=== PATIENT | male | born 1975 | race Caucasian/White ===

== ENCOUNTER 2019-11-11 08:03 | Inpatient (IN) ==
[2019-11-11] MEDS ORDERED: ONDANSETRON INJ 2 MG/ML 2 ML VIAL IV STA ×2 (08:30→10:31)
[2019-11-11] MEDS ORDERED: MoRPHine SULFATE 4 MG/ML 1 ML CARP\\VIAL IV STA ×2 (08:30→10:11)
[2019-11-11] MEDS ORDERED: SODIUM CHLORIDE 0.9% 1000ML 1,000 ML IV SCH (08:32)
--- NOTE | 2019-11-11 08:36 | Emergency Department Note ---
History of Present Illness General Chief complaint: Vomiting Stated complaint: PAIN IN LEFT SIDE UNDER RIB [id number] Time Seen by Provider: 11/11/19 08:17 History of Present Illness Maximum Pain Intensity: 7 Patient is a generally healthy 43-year-old male who presents the emergency department for evaluation of left flank pain with associated nausea, vomiting and diarrhea. His symptoms started about 10 hours ago when he noticed pain in his left flank. He tried taking ibuprofen and applying heat to the area thinking that the pain was musculoskeletal in nature. Pain is been constant in nature, and kept him from sleeping. It is located in the left flank/lateral abdomen, but does not radiate. It is worse with palpation and movement. He woke up around 7:00 this morning and as he was getting ready, he had 3 loose watery bowel movements and vomited twice. No hematochezia, hematemesis or melena. No change in his pain with the vomiting or the diarrhea. He has been urinating without difficulty, no hematuria, dysuria or hesitancy. He denies any sick contacts at home or work, no recent antibiotic use, foreign travel or unusual food or water consumption. He has eaten the same foods as family members and they are not ill. He has city water as a source at home. He had a colonoscopy in the past which was clear. He is status post appendectomy. There is no anterior chest pain or shortness of breath. No palpitations. No cough or hemoptysis. 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 Beliefs That Will Affect Care: None Current Living Situation: Alone Other Information That Helps Us Care for You: No Feels Safe at Home: Yes Safety Concerns: Feels Safe At This Time Smoking Status: Never smoker Do You Dip or Chew Tobacco: No (in the past) ; Second Hand Exposure: No ; Tobacco Cessation Education Requested by Patient: No Hx Alcohol Use: Yes Hx Substance Use: No Review of Systems A total of 10 systems reviewed and were otherwise negative Physical Exam Vital Signs Vital Signs - 24 hr 11/11/19 08:05 11/11/19 10:23 11/11/19 11:44 Temperature 36.7 C Temperature Source Oral Pulse Rate 86 Pulse Rate [Finger] 78 60 Respiratory Rate 18 16 16 Respiratory Effort / Characteristics Non-Labored Spontaneous Respiratory Depth Normal Blood Pressure 125/81 Blood Pressure [Right Arm] 123/82 118/84 Blood Pressure Mean 95 Blood Pressure Mean [Right Arm] 95 95 Pulse Oximetry 98 98 97 Oxygen Delivery Method Room Air Room Air Sepsis Recent Fever Within 48 Hours No Sepsis New/Unexplained Change in Mental Status No Sepsis Action Taken by Nursing No Action Required CONSTITUTIONAL: The patient is a well-appearing 43-year-old male who is awake and alert and in mild distress due to his stated complaint. EYES: Pupils equal, round, reactive to light and accommodation. EOMs intact without nystagmus. Sclera are anicteric. ENT: Tympanic membranes intact, with normal landmarks. External canals are clear. Oral and nasopharynx are clear. Mucous membranes are moist, no lesions, tongue and gums appear normal. NECK: Supple without lymphadenopathy. No thyromegaly. No meningeal signs. Full active range of motion without discomfort. CARDIOVASCULAR: Regular rate and rhythm, with normal S1 and S2, no murmur or gallop or rub is heard. No carotid bruits auscultated. No JVD. Peripheral pulses easily palpable. RESPIRATORY: Breath sounds equal and clear to auscultation without wheezes, rales, or rhonchi heard. Full and equal chest expansion without accessory muscle use or retractions. ABDOMEN: Bowel sounds are present. Abdomen is soft, nondistended, nontender to percussion throughout. He is tender to palpation in the left mid abdomen, left upper quadrant. No guarding or rebound. Well-healed surgical scars are noted. INTEGUMENTARY: Vitiligo noted. No acute lesions or rash, normal skin turgor. LYMPH: No lymphadenopathy. Course Course The patient was seen and assessed as above. Old records were reviewed. He presents to the emergency department for evaluation of 12 hours of left-sided abdominal pain with associated nausea, vomiting and diarrhea. He is markedly tender in the left mid abdomen. No signs of peritonitis. IV lock was initiated. Laboratory studies were collected. He was hydrated with normal saline solution. CBC with differential, CMP, urine dip and stool studies were ordered. He was medicated with morphine 4 mg IV and Zofran 4 mg IV for pain and nausea. CT scan of the abdomen pelvis with IV contrast was ordered. Laboratory studies were unremarkable. White count is normal at 8000, no left shift or bandemia. H&H is 13.7 and 40.0. Electrolytes are within normal limits. Transaminases are not elevated. Lipase is normal. Urine dip was clean without signs of infection or hematuria. Patient was reassessed when he returned from CT. He was complaining of increased pain and was ordered an additional morphine 4 mg IV. After the patient was given the IV morphine, he was complaining of nausea and was given an additional Zofran [address] scan findings are consistent with an acute diverticulitis of the mid descending colon. No evidence for abscess or perforation. No other acute in tra-abdominal pathology noted. IV Zosyn was ordered. All laboratory and diagnostic imaging studies were reviewed with the patient and his female friend. Supportive care measures were discussed with the patient. Patient was receiving IV antibiotics. Nursing staff contacted me again with the patient was complaining of a return of his pain, and had vomited. He was ordered Dilaudid 0.5 mg IV and Phenergan 25 mg IV. The patient was reassessed after the Dilaudid and Phenergan, and reported little improvement of his pain, and was still nauseous and vomiting. Given this, admission/observation was discussed with him due to his intractable pain and vomiting. He was agreeable. Consultation was placed with the [facility] for further care and management as an inpatient. Administered Medications Ioversol (Optiray 320 100ml) 94 ml IV ONCE PRN PRN Reason: Interaction Checking Stop: 11/15/19 09:29 Last Admin: 11/11/19 09:31 Dose: 94 ml Documented by: [id number] Discontinued Medications Hydromorphone HCl (Dilaudid) 0.5 mg IV NOW STA Stop: 11/11/19 11:29 Last Admin: 11/11/19 11:46 Dose: 0.5 mg Documented by: [id number] Sodium Chloride (Nss 1000ml) 1,000 mls @ 999 mls/hr IV .Q1H1M THALIA Stop: 11/11/19 09:32 Last Infusion: 11/11/19 10:23 Dose: 0 mls/hr Documented by: [id number] Admin: 11/11/19 09:02 Dose: 999 mls/hr Documented by: [id number] Piperacillin Sod/Tazobactam Sod (Zosyn) 4.5 gm in 120 mls @ 240 mls/hr IV NOW ONE Stop: 11/11/19 10:40 Last Infusion: 11/11/19 11:09 Dose: 0 mls/hr Documented by: [id number] Admin: 11/11/19 10:29 Dose: 240 mls/hr Documented by: [id number] Promethazine HCl (Phenergan) 25 mg in 51 mls @ 204 mls/hr IV NOW STA Stop: 11/11/19 11:42 Last Infusion: 11/11/19 12:05 Dose: 0 mls/hr Documented by: [id number] Admin: 11/11/19 11:46 Dose: 204 mls/hr Documented by: [id number] Morphine Sulfate (Morphine Sulfate) 4 mg IV NOW STA Stop: 11/11/19 08:31 Last Admin: 11/11/19 09:03 Dose: 4 mg Documented by: [id number] Morphine Sulfate (Morphine Sulfate) 4 mg IV NOW STA Stop: 11/11/19 10:12 Last Admin: 11/11/19 10:22 Dose: 4 mg Documented by: [id number] Ondansetron HCl (Zofran) 4 mg IV NOW STA Stop: 11/11/19 08:31 Last Admin: 11/11/19 09:03 Dose: 4 mg Documented by: [id number] Ondansetron HCl (Zofran) 4 mg IV NOW STA Stop: 11/11/19 10:32 Last Admin: 11/11/19 10:47 Dose: 4 mg Documented by: [id number] Medical Decision Making Differential Diagnosis Differential diagnoses entertained included UTI, pyelonephritis, renal colic, hernia, shingles, musculoskeletal injury, diverticulitis, bowel obstruction perforation among others. Medical Records Attestation: I reviewed the patient's medical records. Home Medications Current Medication List: was personally reviewed by me Laboratory Data Attestation: I reviewed the patient's lab results. Result diagrams: 11/11/19 08:41 11/11/19 08:41 Lab Results 11/11/19 11/11/19 11/11/19 Range/Units 08:41 08:41 10:00 WBC 8.09 (4.8-10.8) K/uL RBC 4.76 (4.7-6.1) M/uL Hgb 13.7 L (14.0-18.0) g/dL Hct 40.4 L (42-52) % MCV 84.9 (80-100) fL MCH 28.8 (25-34) pg MCHC 33.9 (32-36) g/dL RDW Std Deviation 38.1 (36.4-46.3) fL RDW Coeff of Kym 12.5 (11.5-14.5) % Plt Count 184 (130-400) K/uL MPV 10.2 (7.4-10.4) fL Immature Gran % (Auto) 0.2 % Neut % (Auto) 69.2 % Lymph % (Auto) 16.1 % [place] % (Auto) 12.1 % Eos % (Auto) 2.2 % Baso % (Auto) 0.2 % Immature Gran # (Auto) 0.02 (0.00-0.02) K/uL Neut # (Auto) 5.59 (1.4-6.5) K/uL Lymph # (Auto) 1.30 (1.2-3.4) K/uL [place] # (Auto) 0.98 H (0.11-0.59) K/uL Eos # (Auto) 0.18 (0-0.5) K/uL Baso # (Auto) 0.02 (0-0.2) K/uL Sodium 140 (136-145) mmol/L Potassium 3.9 (3.5-5.1) mmol/L Chloride 107 (98-107) mmol/L Carbon Dioxide 29 (21-32) mmol/L Anion Gap 4.0 (3-11) BUN 12 (7-18) mg/dl Creatinine 1.12 (0.6-1.4) mg/dl Est Cr Clr Drug Dosing 82.3 ml/min Est GFR ( Amer) 92.7 Est GFR (Non-Af Amer) 80.0 BUN/Creatinine Ratio 11.1 (10-20) Glucose 104 H (70-99) mg/dl Calcium 8.8 (8.5-10.1) mg/dl Total Bilirubin 0.8 (0.2-1) mg/dl AST 8 L (15-37) U/L ALT 22 (12-78) U/L Alkaline Phosphatase 55 (45-117) U/L Total Protein 7.2 (6.4-8.2) gm/dl Albumin 3.7 (3.4-5.0) gm/dl Globulin 3.5 (2.5-4.0) gm/dl Albumin/Globulin Ratio 1.1 (0.9-2) Lipase 94 (73-393) U/L POC Urine pH 5 (4.5-7.5) POC Urine Protein Trace H (Negative) POC Ur Glucose (UA) Normal (Normal) POC Urine Ketones Negative (Negative) POC Urine Blood Negative (Negative) POC Urine Nitrite Negative (Negative) POC Urine Bilirubin Negative (Negative) POC Urine Urobilinogen Normal (Normal) POC U Leukocyte Esteras Negative (Negative) Imaging Data Attestation: I personally reviewed and interpreted this imaging study as follows: Radiologist's Impression: CT OF THE ABDOMEN AND PELVIS WITH CONTRAST CLINICAL HISTORY: Left flank pain. COMPARISON STUDY: None. TECHNIQUE: Following IV administration of 94 mL of Optiray-320, axial images of the abdomen and pelvis were obtained from the lung bases to the proximal femurs. Images were reviewed in the axial, sagittal, and coronal planes. IV contrast was administered without complication. Automated exposure control was utilized for the study. A dose lowering technique was utilized adhering to the principles of ALARA. CT DOSE: 381.19 mGy.cm FINDINGS: Lung bases are unremarkable. No pneumatosis, free air or portal venous gas is present. Note is made of a 1.2 cm cyst within the upper pole of the right kidney. There is no hydronephrosis. The liver, spleen, adrenal glands, left kidney and pancreas are normal. There is no evidence for a bowel obstruction. The appendix is surgically absent. There is an inflamed diverticulum of the posterior aspect of the mid descending colon. There is mild adjacent inflammation. There is no free air or abscess. No suspicious osseous lesions are noted. IMPRESSION: Mild acute diverticulitis of the mid descending colon. No free air or abscess. Mild inflammation. Blood Pressure Blood Pressure Findings: Normal blood pressure Blood Pressure Disposition: did not require urgent referral MDM Narrative See ED Course. Impression & Plan Diverticulitis Discharge Plan Visit Data Chief Complaint: Vomiting Stated Complaint: PAIN IN LEFT SIDE UNDER RIB [id number] ED Provider: Guillermo Stewart ED Midlevel Provider: Rosenda Gupta Discharge Problem: Diverticulitis Patient Disposition: Being Evaluated by Hospitalist Forms Stand Alone Forms: [facility] Pres[facility] Prescriptions: No Action ibuprofen [Advil] 200 mg Tablet 400 mg PO Q6H PRN (Reason: Fever Or Pain) RF: 0 Referrals Referrals: Bennie Bermudez MD [Primary Care Provider] -
[2019-11-11 08:57] LABS: Basophils # (auto) 0.02 K/uL (0-0.2); Basophils % (auto) 0.2 %; Eosinophils # (auto) 0.18 K/uL (0-0.5); Eosinophils % (auto) 2.2 %; Hematocrit (blood only) 40.4 % (42-52); Hemoglobin 13.7 g/dL (14.0-18.0); Immature Granulocytes # (auto) 0.02 K/uL (0.00-0.02); Immature Granulocytes % (auto) 0.2 %; Lymphocytes % (auto) 16.1 %; Mean Corpuscular Hemoglobin 28.8 pg (25-34); Mean Corpuscular Hgb Conc 33.9 g/dL (32-36); Mean Corpuscular Volume 84.9 fL (80-100); Mean Platelet Volume 10.2 fL (7.4-10.4); Monocytes # (auto) 0.98 K/uL (0.11-0.59); Monocytes % (auto) 12.1 %; Neutrophils # (auto) 5.59 K/uL (1.4-6.5); Neutrophils % (auto) 69.2 %; Platelet Count 184 K/uL (130-400); RDW Coefficient of Variation 12.5 % (11.5-14.5); RDW Standard Deviation 38.1 fL (36.4-46.3); Red Blood Count 4.76 M/uL (4.7-6.1); White Blood Count 8.09 K/uL (4.8-10.8)
[2019-11-11 09:14] LABS: Albumin Level 3.7 gm/dl (3.4-5.0); BUN Creatinine Ratio 11.1 (10-20); Calcium 8.8 mg/dl (8.5-10.1); Creatinine Clr Calc Pharmacy 82.3 ml/min; Est GFR (African American) 92.7; Potassium 3.9 mmol/L (3.5-5.1)
[2019-11-11 09:17] LABS: Albumin Globulin Ratio 1.1 (0.9-2); Bilirubin,Total 0.8 mg/dl (0.2-1); Globulin 3.5 gm/dl (2.5-4.0); Total Protein 7.2 gm/dl (6.4-8.2)
[2019-11-11] MEDS ORDERED: IOVERSOL 100ml IV PRN (09:30)
--- NOTE | 2019-11-11 09:53 | CT Scan Report ---
CT OF THE ABDOMEN AND PELVIS WITH CONTRAST CLINICAL HISTORY: Left flank pain. COMPARISON STUDY: None. TECHNIQUE: Following IV administration of 94 mL of Optiray-320, axial images of the abdomen and pelvi s were obtained from the lung bases to the proximal femurs. Images were reviewed in the axial, sagitt al, and coronal planes. IV contrast was administered without complication. Automated exposure contro l was utilized for the study. A dose lowering technique was utilized adhering to the principles of A ARMIN. CT DOSE: 381.19 mGy.cm FINDINGS: Lung bases are unremarkable. No pneumatosis, free air or portal venous gas is present. Note is made of a 1.2 cm cyst within the upper pole of the right kidney. There is no hydronephrosis. The liver, spleen, adrenal glands, left kidney and pancreas are normal. There is no evidence for a bowel obstruction. The appendix is surgically absent. There is an inflamed diverticulum of the posterior as pect of the mid descending colon. There is mild adjacent inflammation. There is no free air or absces s. No suspicious osseous lesions are noted. IMPRESSION: Mild acute diverticulitis of the mid descending colon. No free air or abscess. Mild infl ammation. Electronically signed by: Kaden Cantu M.D. 11/11/2019 9:51 AM
[2019-11-11 10:02] LABS: POC Urine Bilirubin Negative (Negative); POC Urine Blood Negative (Negative); POC Urine Glucose Normal (Normal); POC Urine Ketones Negative (Negative); POC Urine Leukocytes Negative (Negative); POC Urine Nitrite Negative (Negative); POC Urine Protein Trace (Negative); POC Urine Urobilinogen Normal (Normal); POC Urine pH 5 (4.5-7.5)
[2019-11-11] MEDS ORDERED: PIPERACILLIN/TAZOBACTAM 4.5 GM/120 ML BAG IV ONE (10:11)
[2019-11-11] MEDS ORDERED: PIPERACILL/TAZOBAC CONSULT ACTIVE PRN (10:11)
[2019-11-11] MEDS ORDERED: PROMETHAZINE 25 MG/51 ML BAG IV STA (11:28)
[2019-11-11] MEDS ORDERED: HYDROmorphone INJ 0.5 MG/0.5 ML SYR IV STA (11:28)
--- NOTE | 2019-11-11 13:35 | History & Physical Report ---
Date of Service November 11, 2019 Assessment & Plan (1) Diverticulitis: This is a 43-year-old male with no known past medical history who presents with left-sided abdominal pain starting last night at 10 PM and was found to have mild acute diverticulitis of mid descending colon. -Left flank pain, nausea, vomiting and diarrhea since late last evening -Afebrile, hemodynamically stable, no leukocytosis or electrolyte abnormalities -CT abd/pelvis with mild acute diverticulitis of the mid descending colon. No free air or abscess. Mild inflammation -Started empirically on Zosyn in the ED. Plan to continue, follow blood culture -Stool cultures, FOBT and C. difficile toxin ordered and pending -IV fluids, clear liquids as tolerated, pain control, antiemetics DVT Ppx: Early ambulation, maru hose Code status: FULL PCP: No PCP (seen occasionally at [facility], per records) Dispo: Admitted to med/surg. Plan to return home once medically stable Patient seen in collaboration with Dr. Fraser. Please see addendum. History of Present Illness Chief Complaint: Abdominal pain Primary Care Provider: Bennie Bermudez MD This is a 43-year-old male with no known past medical history who presents with left-sided abdominal pain starting last night at 10 PM. Describes pain on left flank under his ribs that is been constant and nonradiating. Associated with nausea, vomiting and diarrhea. Patient tried taking ibuprofen and applying heat to area under left ribs without relief. Denies any fever but does endorse chills. No lightheadedness, visual changes, cough, chest pain, palpitations, shortness of breath, hematemesis, dysuria, hematuria or hesitancy. No constipation. Denies any recent sick contacts or unusual foods. No history of known diverticulitis in the past. 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 Physical Exam Physical Exam: General Appearance: WD/WN, vitals as above, NAD, lying in bed, appears ill, conversing easily Head: normocephalic, atraumatic Eyes: normal inspection, PERRL, conjunctivae normal, anicteric sclerae ENT: external ear and nose normal, oropharynx normal Neck: trachea midline, no thyromegaly normal visual inspection Respiratory: normal respiratory effort, lungs clear to auscultation, no wheeze, rales, rhonchi. Normal insp/exp effort, no accessory muscle use Cardiovascular: regular rate, rhythm, no murmur, normal peripheral pulses. Vessels: no JVD or carotid bruit Chest: normal inspection of chest Abdomen/GI: normal bowel sounds, soft, TTP of left flank below lateral ribs, no guarding, no hepatosplenomegaly Extremities/Musculoskelatal: no cyanosis or clubbing, extremities motor strength 5/5 Neurologic: PERRL, EOMI, accommodation nl, no face palsy, no dysarthria, CN's II-XI intact bilaterally and moves all extremities Psychiatric: A+Ox3, euthymic affect Skin: no rashes, normal color, warm/dry Results & Data Vital Signs (Past 12 Hours) Vital Signs Temp Pulse Pulse Resp BP BP Pulse Ox 11/11/19 11:44 60 16 118/84 97 11/11/19 10:23 78 16 123/82 98 11/11/19 08:05 36.7 C 86 18 125/81 98 Laboratory Results Short CBC 11/11/19 Range/Units 08:41 WBC 8.09 (4.8-10.8) K/uL Hgb 13.7 L (14.0-18.0) g/dL Hct 40.4 L (42-52) % Plt Count 184 (130-400) K/uL BMP 11/11/19 08:41 Sodium 140 Potassium 3.9 Chloride 107 Carbon Dioxide 29 BUN 12 Creatinine 1.12 Glucose 104 H Calcium 8.8 Liver Function 11/11/19 Range/Units 08:41 Total Bilirubin 0.8 (0.2-1) mg/dl AST 8 L (15-37) U/L ALT 22 (12-78) U/L Alkaline Phosphatase 55 (45-117) U/L Albumin 3.7 (3.4-5.0) gm/dl Diagnostic Findings CT abd/pelvis: IMPRESSION: Mild acute diverticulitis of the mid descending colon. No free air or abscess. Mild inflammation. Supervising Physician Co-Signing Physician Notes I, Dr. Marco Fraser, have seen the patient with physician conservation assistant and agree with the assessment and plan as described and would like to comment that Acute diverticulitis -This is a 43 year old previously healthy male with no significant past medical history, not on medications, no allergic history, who started to have left sided abdominal to flank pain on the night of 11/10/19 with subsequent episodes of vomiting and diarrhea and found on CT scan to have mild acute diverticulitis -no kidney stones on CT abdomen imaging -patient reported chills but no documented fevers -normal white blood cell counts -Physical exam is pertinent for generalized malaise with tenderness to palpation of left sided abdomen below the left rib cage. otherwise normal exam. abdomen is soft. Lungs: clear to asucultation. Heart: regular rate and rhythm. Neurological: no focal neurological deficits. Extremities: moves all extremities, no edema -patient empirically started on IV Zosyn in the ED, while this may be somewhat stronger than needed treatment in clinical context, would continue the empiric antibiotic for now - follow culture results and stool studies and clinical course before considering antibiotic de-escalation -IV fluids and IV anti-emetics to prevent dehydration -clear liquid diet -encourage ambulation as tolerated
[2019-11-11] MEDS ORDERED: IBUPROFEN 200 MG TAB PO PRN (14:54)
[2019-11-11] MEDS ORDERED: ACETAMINOPHEN 325 MG TAB PO PRN ×2 (14:54→17:04)
[2019-11-11] MEDS ORDERED: ONDANSETRON INJ 2 MG/ML 2 ML VIAL IV PRN (14:54)
[2019-11-11] MEDS ORDERED: MoRPHine SULFATE 4 MG/ML 1 ML CARP\\VIAL IV PRN (14:54)
[2019-11-11] MEDS ORDERED: PROMETHAZINE HCL 25 MG TAB PO PRN (14:54)
[2019-11-11] MEDS: SODIUM CHLORIDE 0.9% 1000ML 1,000 ML IV SCH (15:48)
[2019-11-11] MEDS: PIPERACILLIN/TAZOBACTAM 3.375 GM in DEXTROSE 5% 100 ML IV SCH ×2 (16:06→23:40)
[2019-11-11] MEDS: KETOROLAC TROMETHAMINE 15 MG/ML VIAL IV PRN (20:26)
[2019-11-11] MEDS: HYDROmorphone INJ 0.5 MG/0.5 ML SYR IV PRN (23:41)
[2019-11-12] MEDS: SODIUM CHLORIDE 0.9% 1000ML 1,000 ML IV SCH ×2 (03:14→16:24)
[2019-11-12] MEDS: KETOROLAC TROMETHAMINE 15 MG/ML VIAL IV PRN ×3 (03:14→20:53)
[2019-11-12 05:25] LABS: Basophils # (auto) 0.02 K/uL (0-0.2); Basophils % (auto) 0.2 %; Eosinophils % (auto) 2.5 %; Hemoglobin 12.4 g/dL (14.0-18.0); Immature Granulocytes # (auto) 0.01 K/uL (0.00-0.02); Immature Granulocytes % (auto) 0.1 %; Lymphocytes # (auto) 1.69 K/uL (1.2-3.4); Lymphocytes % (auto) 20.8 %; Mean Corpuscular Hemoglobin 28.7 pg (25-34); Mean Corpuscular Hgb Conc 33.5 g/dL (32-36); Mean Corpuscular Volume 85.6 fL (80-100); Mean Platelet Volume 10.3 fL (7.4-10.4); Monocytes # (auto) 1.11 K/uL (0.11-0.59); Monocytes % (auto) 13.7 %; Neutrophils # (auto) 5.08 K/uL (1.4-6.5); Neutrophils % (auto) 62.7 %; Platelet Count 172 K/uL (130-400); RDW Coefficient of Variation 12.6 % (11.5-14.5); RDW Standard Deviation 39.4 fL (36.4-46.3); Red Blood Count 4.32 M/uL (4.7-6.1); White Blood Count 8.11 K/uL (4.8-10.8)
[2019-11-12 05:49] LABS: BUN Creatinine Ratio 7.4 (10-20); Calcium 7.7 mg/dl (8.5-10.1); Creatinine Clr Calc Pharmacy 73.1 ml/min; Est GFR (African American) 80.4; Est GFR (Non-African American) 69.4; Potassium 3.5 mmol/L (3.5-5.1)
[2019-11-12] MEDS ORDERED: CALCIUM GLUCONATE 10% 1,000 MG in SODIUM CHLORIDE 0.9% 50 ML IV STA (07:28)
[2019-11-12] MEDS ORDERED: POTASSIUM CHLORIDE 20 MEQ TABCR PO STA (07:28)
[2019-11-12] MEDS ORDERED: POLYETHYLENE (MIRALAX) 17 GM PACK PO PRN (08:03)
--- NOTE | 2019-11-12 08:03 | Hospitalist Progress Note ---
Date of Service November 12, 2019 Assessment & Plan (1) Diverticulitis: This is a 43-year-old male with no known past medical history who presents with left-sided abdominal pain starting last night at 10 PM and was found to have mild acute diverticulitis of mid descending colon. Acute diverticulitis -This is a 43 year old previously healthy male with no significant past medical history, not on medications, no allergic history, who started to have left sided abdominal to flank pain on the night of 11/10/19 with subsequent episodes of vomiting and diarrhea and found on CT scan to have mild acute diverticulitis -no kidney stones on CT abdomen imaging -patient reported chills but no documented fevers -normal white blood cell counts -Physical exam is pertinent for generalized malaise with tenderness to palpation of left sided abdomen below the left rib cage. otherwise normal exam. abdomen is soft. Lungs: clear to asucultation. Heart: regular rate and rhythm. Neurological: no focal neurological deficits. Extremities: moves all extremities, no edema -patient empirically started on IV Zosyn in the ED, was continued empirically -11/12/19: Patient seen and examined this AM. No fevers to date. Hemodynamically stable. Patient denies nausea but he is not feeling appetite because of the left lower quadrant abdominal pain. No vomiting. Patient would like to try crackers with meals. Patient has not had bowel movement today. Reports last bowel movement was prior to coming to hospital; diet advanced to full liquid diet with crackers, continue IV fluids at lower rate, switch IV Zosyn to IV ciprofloxacin and IV metronidazole, discussed with patient that gastroenterology service may not offer acute interventions at this time but given the abdominal pain is very bothersome for patient to move around (and abdomen remains tender to palpation of left lower quadrant) that there may be benefit to ask for specialist recommendations on any further treatment recommendations; also made patient aware that for pain control he as been ordered as needed acetaminophen, as needed Toradol, as needed hydromorphone; also adding prn oxycodone to pain medication list. will put prn Miralax if constipation -follow stool studies when patient able to make bowel movement DVT Ppx: Early ambulation, maru hose Code status: FULL Subjective Patient seen and examined this AM. No fevers to date. Hemodynamically stable. Patient denies nausea but he is not feeling appetite because of the left lower quadrant abdominal pain. No vomiting. Patient would like to try crackers with meals. Patient has not had bowel movement today. Reports last bowel movement was prior to coming to hospital. breathing on room air. no shortness of breath. no chest pain. dizziness, no headache Review of Systems Review of Systems: All systems reviewed & are unremarkable except as noted in HPI & below Physical Exam Constitutional: WD/WN, vitals as above Eyes: PERRL, conjunctivae normal, anicteric sclerae EOM intact bilaterally ENMT: external ear and nose normal, oropharynx normal Neck: trachea midline, no thyromegaly Respiratory: normal respiratory effort, lungs clear to auscultation Gastrointestinal (Abdomen): Inspection/Auscultation: abdomen normal to inspection Percussion/Palpation: + abdomen tender (left lower quadrant tenderness) and abdomen soft Musculoskeletal: Head/Neck/Chest: normocephalic and head atraumatic Neurologic: PERRL, EOMI, accommodation nl, no face palsy, no dysarthria CN's II-XI intact bilaterally Psychiatric: A+Ox3, euthymic affect Results & Data Vital Signs (Past 12 Hours) Vital Signs Temp Pulse Resp BP BP Pulse Ox 11/12/19 07:39 36.7 C 74 19 114/71 99 11/11/19 23:22 37.2 C 75 18 116/75 96
[2019-11-12] MEDS: metroNIDAZOLE 500 MG/100 ML BAG IV SCH ×2 (08:31→16:26)
[2019-11-12] MEDS: CIPROFLOXACIN 400 MG/200 ML BAG IV SCH ×2 (09:38→20:43)
--- NOTE | 2019-11-12 09:39 | History & Physical Report ---
Date of Service November 12, 2019 History of Present Illness Chief Complaint: Abdominal pain Primary Care Provider: Bennie Bermudez MD 43 yo male admitted yesterday with left sided abdominal pain and imaging consi stent with left sided diverticulitis. Admitted thru the ER, having nausea/vomiting, left sided pain since Wednesday night. CT a/p done in eer showing left sided diverticuliti. On zosyn initially, now on cipro/flagyl. This morning- reporting pain on the left side that is not making him feel like wanting to eat. No subjective fevers or chills. No current vomiting or nausea. Hasn't had a bowel movement today. No other complaints other than wanting to go home. No prior history of surgeries/trauma. He has no known family history of colon issues that he is aware of. Allergies Allergy/AdvReac Type Severity Reaction Status Date / Time No Known Allergies Allergy Mild Unverified 11/11/19 09:53 Home Medications Home Medications Medication Instructions Recorded Confirmed Type ibuprofen [Advil] 400 mg PO Q6H PRN 11/11/19 11/11/19 History Past Med/Surg History Medical History No significant past medical history (Chronic) Surgical History History of appendectomy (Chronic) History of shoulder surgery (Chronic) Family History Other Family history non-contributory Social History (Updated 11/11/19 @ 14:07 by Kenyatta Camarena PA-C) Preferred Language: Singaporean Communication Ability: Effective 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: No Beliefs That Will Affect Care: None Current Living Situation: Alone Other Information That Helps Us Care for You: No Feels Safe at Home: Yes Safety Concerns: Feels Safe At This Time Smoking Status: Never smoker Do You Dip or Chew Tobacco: No (in the past) ; Second Hand Exposure: No ; Tobacco Cessation Education Requested by Patient: No Hx Alcohol Use: Yes Alcohol Intake Frequency: Weekly Hx Substance Use: No Review of Systems All systems reviewed & are unremarkable except as noted in HPI & below Physical Exam Physical Exam: Well nourished male in nad Constitutional: WD/WN, vitals as above well developed and well nourished; no acute distress Eyes: PERRL, conjunctivae normal, anicteric sclerae Respiratory: normal respiratory effort, lungs clear to auscultation Gastrointestinal (Abdomen): normal bowel sounds, soft, nontender, no hepatosplenomegaly Skin: no rashes, warm and dry Neurologic: CN's II-XI intact bilaterally Psychiatric: A+Ox3, euthymic affect Results & Data Vital Signs (Past 12 Hours) Vital Signs Temp Pulse Resp BP BP Pulse Ox 11/12/19 07:39 36.7 C 74 19 114/71 99 11/11/19 23:22 37.2 C 75 18 116/75 96 Labs and imaging have been reviewed CT A/P showing left sided diverticulitis No prior [facility] on review Supervising Physician Co-Signing Physician Notes Left sided diverticutilitis - pain is likely from that will improve with improvement in inflammation in the area, continue iv abx until pain improving, then transition to po, slow advancement of diet. Outpatient colonoscopy in 6-8 weeks ([facility] GI office will call to arrange on discharge).
[2019-11-12] MEDS: HYDROmorphone INJ 0.5 MG/0.5 ML SYR IV PRN ×2 (10:03→18:02)
[2019-11-12] MEDS: OXYCODONE HCL IR 5 MG TAB (IMMEDIATE RELEASE) PO PRN ×2 (13:49→20:52)
[2019-11-13] MEDS: metroNIDAZOLE 500 MG/100 ML BAG IV SCH ×2 (00:17→08:59)
[2019-11-13] MEDS: OXYCODONE HCL IR 5 MG TAB (IMMEDIATE RELEASE) PO PRN (01:18)
[2019-11-13 06:13] LABS: Basophils # (auto) 0.02 K/uL (0-0.2); Basophils % (auto) 0.3 %; Eosinophils # (auto) 0.24 K/uL (0-0.5); Eosinophils % (auto) 3.9 %; Hematocrit (blood only) 39.6 % (42-52); Immature Granulocytes # (auto) 0.02 K/uL (0.00-0.02); Immature Granulocytes % (auto) 0.3 %; Lymphocytes % (auto) 29.4 %; Mean Corpuscular Hemoglobin 28.2 pg (25-34); Mean Corpuscular Hgb Conc 32.8 g/dL (32-36); Mean Corpuscular Volume 85.9 fL (80-100); Mean Platelet Volume 9.8 fL (7.4-10.4); Monocytes # (auto) 0.89 K/uL (0.11-0.59); Monocytes % (auto) 14.5 %; Neutrophils # (auto) 3.15 K/uL (1.4-6.5); Neutrophils % (auto) 51.6 %; Platelet Count 199 K/uL (130-400); RDW Coefficient of Variation 12.3 % (11.5-14.5); RDW Standard Deviation 38.6 fL (36.4-46.3); Red Blood Count 4.61 M/uL (4.7-6.1); White Blood Count 6.12 K/uL (4.8-10.8)
[2019-11-13 06:53] LABS: Albumin Level 3.1 gm/dl (3.4-5.0); BUN Creatinine Ratio 5.6 (10-20); Calcium 8.4 mg/dl (8.5-10.1); Est GFR (African American) 93.8; Est GFR (Non-African American) 80.9; Potassium 3.8 mmol/L (3.5-5.1)
[2019-11-13 06:56] LABS: Albumin Globulin Ratio 0.9 (0.9-2); Bilirubin,Total 0.6 mg/dl (0.2-1); Globulin 3.6 gm/dl (2.5-4.0); Total Protein 6.7 gm/dl (6.4-8.2)
[2019-11-13 07:12] VITALS: BP 112/75; PULSE 67; TEMP 97.7; O2SAT 98
[2019-11-13] MEDS: SODIUM CHLORIDE 0.9% 1000ML 1,000 ML IV SCH (08:23)
[2019-11-13] MEDS: CIPROFLOXACIN 400 MG/200 ML BAG IV SCH (10:06)
--- NOTE | 2019-11-13 14:07 | Hospitalist Progress Note ---
Date of Service November 13, 2019 Assessment & Plan (1) Diverticulitis: This is a 43-year-old male with no known past medical history who presents with left-sided abdominal pain starting last night at 10 PM and was found to have mild acute diverticulitis of mid descending colon. Acute diverticulitis -This is a 43 year old previously healthy male with no significant past medical history, not on medications, no allergic history, who started to have left sided abdominal to flank pain on the night of 11/10/19 with subsequent episodes of vomiting and diarrhea and found on CT scan to have mild acute diverticulitis -no kidney stones on CT abdomen imaging -patient reported chills but no documented fevers -normal white blood cell counts -Physical exam is pertinent for generalized malaise with tenderness to palpation of left sided abdomen below the left rib cage. otherwise normal exam. abdomen is soft. Lungs: clear to asucultation. Heart: regular rate and rhythm. Neurological: no focal neurological deficits. Extremities: moves all extremities, no edema -patient empirically started on IV Zosyn in the ED, was continued empirically -11/12/19: patient required more pain medications and evaluated by [facility] Gastroenterology service, diet was advanced from clear liquid to full liquid diet -C.difficile is negative -11/13/19: Patient remains having some left lower quadrant pain but feeling better and wishes to go home. diet was advanced from full liquid to low fiber diet -on discharge, patient has following instructions Patient should have a low fiber diet Patient may take acetaminophen 325 mg every 6 hours as needed for pain or fever Patient may take oxycodone 5 mg every 6 hours as needed for moderate to severe pain (16 tablets prescribed.The [place] Prescription Drug Monitoring Program was checked and patient has no active controlled substance prescription medications in the last year) Patient should take ciprofloxacin 500 mg every 12 hours and metronidazole every 8 hours for 12 more days to complete a total 14 day course of antibiotics for the diverticulitis Discharge Medications sent electronically to [facility] [address] [place] [address] primary care doctor follow up 11/17/2019 1:00 PM Provider Ngozi Hernandez, Department [facility] Gastroenterology Dr. Baumann evaluated the patient and recommends outpatient colonoscopy in 6-8 weeks ([facility] office will call to arrange on discharge; [facility] Address: [address], [place] [address] ) Discharge Diagnosis: Acute Diverticulitis (of mid descending colon) Subjective Patient remains having some left lower quadrant pain but feeling better and wishes to go home. diet was advanced from full liquid to low fiber diet. No fever. no chest pain. no vomiting. patient is ambulatory. breathing on room air, no shortness of breath Review of Systems Review of Systems: All systems reviewed & are unremarkable except as noted in HPI & below Physical Exam Constitutional: WD/WN, vitals as above Eyes: PERRL, conjunctivae normal, anicteric sclerae EOM intact bilaterally ENMT: external ear and nose normal, oropharynx normal Neck: trachea midline, no thyromegaly Respiratory: normal respiratory effort, lungs clear to auscultation Gastrointestinal (Abdomen): Inspection/Auscultation: abdomen normal to inspection Percussion/Palpation: + abdomen tender (left lower quadrant tenderness) and abdomen soft Musculoskeletal: Head/Neck/Chest: normocephalic and head atraumatic Neurologic: PERRL, EOMI, accommodation nl, no face palsy, no dysarthria CN's II-XI intact bilaterally Psychiatric: A+Ox3, euthymic affect Results & Data Vital Signs (Past 12 Hours) Vital Signs Temp Pulse Resp BP Pulse Ox 11/13/19 07:11 36.5 C 67 19 112/75 98
--- NOTE | 2019-11-13 14:15 | Discharge Summary ---
Date of Service November 13, 2019 Admission HPI Per Admitting Provider 43 yo male admitted yesterday with left sided abdominal pain and imaging consistent with left sided diverticulitis. Admitted thru the ER, having nausea/vomiting, left sided pain since Wednesday night. CT a/p done in r showing left sided diverticuliti. On zosyn initially, now on cipro/flagyl. This morning- reporting pain on the left side that is not making him feel like wanting to eat. No subjective fevers or chills. No current vomiting or nausea. Hasn't had a bowel movement today. No other complaints other than wanting to go home. No prior history of surgeries/trauma. He has no known family history of colon issues that he is aware of. Principal Diagnosis Acute Diverticulitis (of mid descending colon) Discharge Exam Constitutional WD/WN, vitals as above Eyes PERRL, conjunctivae normal, anicteric sclerae EOM intact bilaterally ENMT external ear and nose normal, oropharynx normal Neck trachea midline, no thyromegaly Respiratory normal respiratory effort, lungs clear to auscultation Gastrointestinal (Abdomen) Inspection/Auscultation: abdomen normal to inspection Percussion/Palpation: + abdomen tender (left lower quadrant tenderness) and abdomen soft Musculoskeletal Head/Neck/Chest: normocephalic and head atraumatic Neurologic PERRL, EOMI, accommodation nl, no face palsy, no dysarthria CN's II-XI intact bilaterally Psychiatric A+Ox3, euthymic affect Discharge Data Allergies Allergy/AdvReac Type Severity Reaction Status Date / Time No Known Allergies Allergy Mild Unverified 11/11/19 09:53 Consultations 11/11/19 12:19 ED Decision to Admit Stat 11/12/19 08:00 Consult Gastroenterology Routine Ordered Studies 11/11/19 08:31 CT abd pelvis IV con only Stat Hospital Course (1) Diverticulitis: This is a 43-year-old male with no known past medical history who presents with left-sided abdominal pain starting last night at 10 PM and was found to have mild acute diverticulitis of mid descending colon. Acute diverticulitis -This is a 43 year old previously healthy male with no significant past medical history, not on medications, no allergic history, who started to have left sided abdominal to flank pain on the night of 11/10/19 with subsequent episodes of vomiting and diarrhea and found on CT scan to have mild acute diverticulitis -no kidney stones on CT abdomen imaging -patient reported chills but no documented fevers -normal white blood cell counts -Physical exam is pertinent for generalized malaise with tenderness to palpation of left sided abdomen below the left rib cage. otherwise normal exam. abdomen is soft. Lungs: clear to asucultation. Heart: regular rate and rhythm. Neurological: no focal neurological deficits. Extremities: moves all extremities, no edema -patient empirically started on IV Zosyn in the ED, was continued empirically -11/12/19: patient required more pain medications and evaluated by [facility] Gastroenterology service, diet was advanced from clear liquid to full liquid diet -C.difficile is negative -11/13/19: Patient remains having some left lower quadrant pain but feeling better and wishes to go home. diet was advanced from full liquid to low fiber diet -on discharge, patient has following instructions Patient should have a low fiber diet Patient may take acetaminophen 325 mg every 6 hours as needed for pain or fever Patient may take oxycodone 5 mg every 6 hours as needed for moderate to severe pain (16 tablets prescribed.The [place] Prescription Drug Monitoring Program was checked and patient has no active controlled substance prescription medications in the last year) Patient should take ciprofloxacin 500 mg every 12 hours and metronidazole every 8 hours for 12 more days to complete a total 14 day course of antibiotics for the diverticulitis Discharge Medications sent electronically to [facility] [address] [place] [address] primary care doctor follow up 11/17/2019 1:00 PM Provider Ngozi Hernandez, Department [facility] Gastroenterology Dr. Baumann evaluated the patient and recommends outpatient colonoscopy in 6-8 weeks ([facility] GI office will call to arrange on discharge; [facility] Address: [address] [place] [id number] ) Discharge Diagnosis: Acute Diverticulitis (of mid descending colon) Total Time Total Time Spent Total Time Spent (In Minutes): 40 minutes Total Time Includes: Examination of the Patient, Discharge Planning, Medication Reconciliation and Communication With Other Providers Discharge Plan Discharge Items Patient Disposition: Home - Self-Care Reason For Visit: DIVERTICULITIS Discharge Diagnosis: Acute Diverticulitis (of mid descending colon) Condition on Discharge: Good Activity: Resume your previous activity Non-emergency contact: 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 [employer] Call non-emergency contact if: you have any medication questions Follow-up/Referrals: Bennie Bermudez MD [Primary Care Provider] - Diet: Low Fiber Addtl Attending Provider Instructions: Patient should have a low fiber diet Patient may take acetaminophen 325 mg every 6 hours as needed for pain or fever Patient may take oxycodone 5 mg every 6 hours as needed for moderate to severe pain (16 tablets prescribed.The [place] Prescription Drug Monitoring Program was checked and patient has no active controlled substance prescription medications in the last year) Patient should take ciprofloxacin 500 mg every 12 hours and metronidazole every 8 hours for 12 more days to complete a total 14 day course of antibiotics for the diverticulitis Discharge Medications sent electronically to [facility] [address] [facility] [place] [address] primary care doctor follow up 11/17/2019 1:00 PM Provider Ngozi Hernandez DO Department [facility] Gastroenterology Dr. Baumann evaluated the patient and recommends outpatient colonoscopy in 6-8 weeks ([facility] office will call to arrange on discharge; [facility] Address: [address] [place] [id number] ) Pending Studies at Discharge: No Stand-Alone Forms: My [address], Opioid Pain Management, Smoking Cessation Medications and DC Order Prescriptions: New acetaminophen 325 mg tablet 325 mg PO Q6H PRN (Reason: fever or pain) 5 Days Qty: 20 RF: 0 ciprofloxacin [Cipro] 500 mg/5 mL suspension,microcapsule recon 500 mg PO Q12H 12 Days Qty: 120 RF: 0 metronidazole 500 mg tablet 500 mg PO Q8H 12 Days Qty: 36 RF: 0 oxycodone 5 mg Tablet 5 mg PO Q6H PRN (Reason: moderate to severe pain) 4 Days Qty: 16 RF: 0 Discontinued ibuprofen [Advil] 200 mg Tablet 400 mg PO Q6H PRN (Reason: Fever Or Pain) RF: 0 Discharge Orders: Discharge Order (Routine); Ordered 11/13/19 Ordered By: Marco Ozuna/Other Patient Handouts: Diet Low Residue, Diverticulosis Diverticulitis Admission Data Admit Date/Time: 11/11/19 13:31 Attending Provider: Marco Fraser Admit Provider: Marco Fraser Primary Care Provider: Bennie Bermudez Other Providers: Huma Posada ; Janae Baumann
--- NOTE | 2019-11-13 14:53 | Gastroenterology Progress Note ---
Date of Service November 13, 2019 Assessment & Plan (1) Diverticulitis: Acute uncomplicated diverticulitis, slowly improving. Plan: Soft diet. Outpatient colonoscopy in 6 to 8 weeks. If pain worsens in the interim or if persistent nausea, patient should contact GI Present on Admission?: Yes Supervising Physician Co-Signing Physician Notes I have personally seen and examined the patient with STEPHANIE Blanton. Her note reflects my exam and findings. I agree with her impression and plan. Feeling much better. Having BMs. Still some LLQ pain. He needs an out patient c olonoscopy in4-6 weeks. Myron Cerna M.D. Subjective Mr. Hartmann is a 43-year-old male admitted for left lower quadrant pain, CT significant for acute uncomplicated diverticulitis. No prior history of colonoscopy. Patient states he still has abdominal pain but does have improvement and would like to be discharged. He has tolerated a soft diet. WBC 6 Review of Systems Review of Systems: ROS: Gen: Denies weakness, fevers, weight loss Eyes: No eye redness, or pain, no recent vision changes Resp: No SOB, no cough Cardio: No palpitations/irregular beats, no chest pain GI: + LLQ abdominal pain; no nausea/vomiting : Denies pain on urination Skin: No jaundice, itching or new rashes Physical Exam Constitutional: WD/WN, vitals as above Eyes: PERRL, conjunctivae normal, anicteric sclerae ENMT: external ear and nose normal, oropharynx normal Neck: trachea midline, no thyromegaly Respiratory: normal respiratory effort, lungs clear to auscultation Cardiovascular: RRR, no murmur, no edema Gastrointestinal (Abdomen): Inspection/Auscultation: abdomen not distended Percussion/Palpation: + abdomen tender (Left lower quadrant) and abdomen soft; no ascites Results & Data Vital Signs (Past 12 Hours) Vital Signs Temp Pulse Resp BP Pulse Ox 11/13/19 07:11 36.5 C 67 19 112/75 98 Laboratory Results WBC 6, hemoglobin 13, hematocrit 39, platelets 199, BUN 6, creatinine 1.1, glucose 196. LFTs normal Diagnostic Findings CT abdomen and pelvis with IV contrast on 11/11 IMPRESSION: Mild acute diverticulitis of the mid descending colon. No free air or abscess. Mild inflammation.
== END 2019-11-13 14:40 | disposition home or self-care (01) | DRG 392 ==
LOC: ED 08:03 → 3W 13:31

== ENCOUNTER 2024-01-08 21:52 | Inpatient (IN) ==
--- OUTSIDE RECORDS SUMMARY | 2024-01-08 21:58 | External Medical Summary | Summary of Care ---
Author Name Unknown Organization [facility] Address [address] [place] [address] Phone [phone] Care Team Providers Care Production Coordinator Name Role Phone YenniNgozi quinn Primary Care Provider + [phone] Reason for Visit * Reason Onset Date Comments Medication Refill 07/15/2023 Encounter Details Date Type Department Care Team Description 07/15/[address] [facility] [place] [address] [place] [address] Maryellen Esparza MD [address] [place] [address] Medication Refill Allergies Active Allergy Reactions Severity Noted Date Comments Amoxicillin Rash Medium 02/09/2022 Penicillins 03/02/2022 documented as of this encounter (statuses as of 07/16/2023) Medications Medication Sig Dispensed Refills Start Date End Date Status hydrOXYzine HCl 25 MG Oral TabletIndications :Anxiety Take 1 Tablet by mouth every 6 hours as needed for Anxiety. 40 Tablet 2 07/13/2023 Active busPIRone HCl 5 MG Oral Tablet (Buspar)Indicatio ns:Anxiety Take 1 Tablet by mouth in the morning and 1 Tablet before bedtime. 180 Tablet 0 07/16/2023 Active busPIRone HCl 5 MG Oral Tablet (Buspar)Indicatio ns:Anxiety Take 1 Tablet by mouth in the morning and 1 Tablet before bedtime. 20 Tablet 0 07/13/2023 07/16/2023 Discontinued (Refill) documented as of this encounter (statuses as of 07/16/2023) Active Problems Problem Noted Date ЕЛЕНА (generalized anxiety disorder) 07/16 ADVANCE DIRECTIVE INFORMATION 09/01/2007 Overview: No, Advance Directive brochure offered , patient declined. documented as of this encounter (statuses as of 07/16/2023) Immunizations Name Administration Dates Next Due PPD 10/07/2016 TD - Tetanus/Diptheria (ADULT) 09/17/2005 TDAP (age 10 and older)(Boostrix) 10/26/2013 documented as of this encounter Social History Tobacco Use Types Packs/Day Years Used Date Smoking Tobacco: Never Smokeless Tobacco: Never Alcohol Use Standard Drinks/Week Comments Yes 0 (1 standard drink = 0.6 oz pur e alcohol) 2 beers once every 2 wks Food Insecurity Answer Date Recorded Within the past 12 months, y ou worried that your food would run out before you got money to buy more. Never true 11/17/2019 Within the past 12 months, t he food you bought just didn't last and you didn't have money to get more. Never true 11/17/2019 Sex Assigned at Date Recorded Not on file Job Start Date Occupation Industry Not on file Not on file Not on file documented as of this encounter Miscellaneous Notes * Addendum Note - Maryellen Esparza MD - 07/16/2023 9:13 AM EDTAddended by: MARYELLEN ESPARZA on: 07/16/2023 09:13 AM Modules accepted: Orders * Telephone Encounter - RENEA Wilson - 07/15/2023 3:20 PM EDT RE usPIRone HCl 5 MG Oral Tablet (Buspar Pt is asking for refill nursing home since he does feel slightly better please send new rx Thank you for your assistance Naya Abdullahi [employer] Senior Executive II [facility] (Formerly [facility]) 07/15/2023,3:21 PM documented in this encounter Plan of Treatment Upcoming Encounters Date Type Specialty Care Team Description 08/12/2023 Telemedicine Psychology Manuel Guajardo LSW [address] [place] [address] 08/16/2023 Telemedicine Family Medicine Maryellen Esparza MD [address] [place] [address] Scheduled Procedures Name Priority Associated Diagnoses Date/Ti me COLONOSCOPY FLEXIBLE PROXIMA L DIAGNOSTIC Recall Screening for colon cancer Health Maintenance Due Date Last Done Comments Diabetes Screening 1975 Hepatitis B (1 of 3 - 3-dose series) 1975 Lipid Panel 1975 COVID-19 Vaccine (#1) 05/15/1976 HIV Screening 1990 Hepatitis C Screening 1993 Cologuard 2020 Fecal Occult Blood Test 2020 Sigmoidoscopy 2020 Influenza Vaccine (FLU shot) (#1) 2023 DTaP,Tdap,and Td Vaccines (2 - Td or Tdap) 10/26/2023 10/26/2013, 09/17/2005 Depression Screening, Annual for Pts 12 and Over 07/15/2024 07/15/2023 Colonoscopy 01/26/2030 01/26/2020, 01/26/2020 Colorectal Cancer Screening 01/26/2030 GARDASIL-HPV IMMUNIZATION SERIES Aged Out No longer eligible b ased on patient's age to complete this topic MENINGOCOCCAL (MENACTRA/MENVEO) Aged Out No longer eligible b ased on patient's age to complete this topic Pneumococcal Vaccine: Pediatrics (0 to 5 Years) and At-Risk Patients (6 to 64 Years) Aged Out No longer eligible b ased on patient's age to complete this topic documented as of this encounter Medical Devices Not on filedocumented as of this encounter Visit Diagnoses Diagnosis Anxiety Anxiety state, unspecified documented in this encounter Advance Directives Latest Code Status on File Code Status Date Activated Date Inactivated Comments Full Code 11/27/2022 8:58 AM 11/27/2022 3:05 PM Thi s order reflects the patients wishes and were consensually agreed upon. Question Answer Comments Discussion of Advance Directives occurred with: Not Discussed due to patient's condition Code Status History Code Status Date Activated Date Inactivated Comments Full Code 11/27/2022 7:59 AM 11/27/2022 8:58 AM Thi s order reflects the patients wishes and were consensually agreed upon. Question Answer Comments Discussion of Advance Directives occurred with: Not Discussed due to patient's condition Care Teams Production Coordinator Relationship Specialty Start Date End Date Ngozi Hernandez DO PCP - General Family Medicine 11/17/19 documented as of this encounter
--- OUTSIDE RECORDS SUMMARY | 2024-01-08 21:58 | External Medical Summary | Summary of Care ---
Author Name Unknown Organization [facility] Address [address] [place] [address] Phone [phone] Care Team Providers Care Cotton Bag Clipper Name Role Phone Yennicheyenne Ngozi Nguyen Primary Care Provider + [phone] Reason for Referral * Evaluate & Treat - Unlimited Visits (Within 10 days (routine)) - Pending Review Specialty Diagnoses / Procedures Referred By Cleo esquivel Referred To Contact Psychology Diagnoses Anxiety Maryellen Esparza MD [address] [place] [address] Referral ID Status Reason Start Date Expiration Date Visits Requested Visits Authorized [id number] Pending Review Specialty Services Required 07/13/[phone] Question Answer Referral Priority Within 10 days (routine) Is this referral for medication management? No Referral To Edward Reason for Referral: Depression/Anxiety/Bipolar Specific Condition? Generalized Anxiety/Worry Encounter Details Date Type Department Care Team Description 07/13/2023 [facility] [address] [place] [address] Maryellen Esparza MD [address] [place] [address] Anxiety* Allergies Active Allergy Reactions Severity Noted Date Comments Amoxicillin Rash Medium 02/09/2022 Penicillins 03/02/2022 documented as of this encounter (statuses as of 07/13/2023) Medications Medication Sig Dispensed Refills Start Date End Date Status busPIRone HCl 5 MG Oral Tablet (Buspar)Indications:A nxiety Take 1 Tablet by mouth in the morning and 1 Tablet before bedtime. 20 Tablet 0 07/13/2023 Active hydrOXYzine HCl 25 MG Oral TabletIndications:Anx iety Take 1 Tablet by mouth every 6 hours as needed for Anxiety. 40 Tablet 2 07/13/2023 Active documented as of this encounter (statuses as of 07/13/2023) Active Problems Problem Noted Date ADVANCE DIRECTIVE INFORMATION 09/01/2007 Overview: No, Advance Directive brochure offered , patient declined. documented as of this encounter (statuses as of 07/13/2023) Immunizations Name Administration Dates Next Due PPD [...] on file documented as of this encounter Progress Notes * Maryellen Esparza MD - 07/13/2023 4:12 PM EDT Images from the original note were not included. History of Present Illness Mejia Hartmann is a 47 year old male that presents for No chief complaint on file. He has been having some issues at work and with his son which have been making him increasingly anxious for about 2 months. He has been doing walks and trying to clear his head to help cope but is feeling overwhelmed and would like to try medication to help. He tried to schedule with a therapist but their openings are several weeks out. No SI/HI No personal h/o anxiety ЕЛЕНА 7 score of 15 points His mom has depression. No FH of bipolar disorder ROS otherwise negative Physical Exam There were no vitals filed for this visit. Physical Exam Constitutional: General: He is not in acute distress. Appearance: Normal appearance. He is not ill-appearing, toxic-appearing or diaphoretic. HENT: Head: Normocephalic and atraumatic. Right Ear: External ear normal. Left Ear: External ear normal. Nose: Nose normal. No congestion or rhinorrhea. Eyes: General: Right eye: No discharge. Left eye: No discharge. Conjunctiva/sclera: Conjunctivae normal. Pulmonary: Effort: Pulmonary effort is normal. No respiratory distress. Neurological: Mental Status: He is alert. Psychiatric: Mood and Affect: Mood normal. Behavior: Behavior normal. I have reviewed the following results: None Assessment and Plan Anxiety (Primary) - ADULT/PEDS PSYCHOLOGY REFERRAL OP - busPIRone HCl 5 MG Oral Tablet (Buspar); Take 1 Tablet by mouth in the morning and 1 Tablet before bedtime. - hydrOXYzine HCl 25 MG Oral Tablet; Take 1 Tablet by mouth every 6 hours as needed for Anxiety. Follow Up: Return in about 4 weeks (around 08/10/2023). - advised of possible drowsy side effect of hydroxyzine and to take it at nights Wrap-Up Follow Up: Return in about 4 weeks (around 08/10/2023). Telemedicine: Patient location: HOME. I was in a hospital or clinic location. After connecting through [employer],patient was verified with two unique identifiers. Patient (or authorized legal industrial sales representative) was then informed that this was a Telemedicine visit and being conducted confidentially over secure lines. Methods to assure confidentiality were taken. Patient acknowledged consent and understanding of pr ivacy and security of the Telemedicine visit. The patient agreed to participate. documented in this encounter Plan of Treatment Scheduled Procedures Name Priority Associated Diagnoses Date/Ti me COLONOSCOPY FLEXIBLE PROXIMA L DIAGNOSTIC Recall Screening for colon cancer Scheduled Referrals Name Type Priority Associated Diagnoses Orde r Schedule ADULT/PEDS PSYCHOLOGY REFERRAL OP Referral Within 10 days (routine) Anxiety Ordered: 07/13/2023 Health Maintenance Due Date Last Done Comments Diabetes Screening 1975 Hepatitis B (1 of 3 - 3-dose series) 1975 Lipid Panel 1975 COVID-19 Vaccine (#1) 05/15/1976 HIV Screening 1990 Hepatitis C Screening 1993 Cologuard 2020 Fecal Occult Blood Test 2020 Sigmoidoscopy 2020 Depression Screening, Annual for Pts 12 and Over 11/17/2020 11/17/2019 Influenza Vaccine (FLU shot) (#1) 2023 DTaP,Tdap,and Td Vaccines (2 - Td or Tdap) 10/26/2023 10/26/2013, 09/17/2005 Colonoscopy 01/26/2030 01/26/2020, 01/26/2020 Colorectal Cancer Screening [...] as of this encounter Visit Diagnoses Diagnosis Anxiety- Primary Anxiety state, unspecified documented in this encounter [...] Discussed due to patient's condition Care Teams Cotton Bag Clipper Relationship Specialty Start Date End Date Ngozi Hernandez DO PCP - General Family Medicine 11/17/19 documented as of this encounter
--- OUTSIDE RECORDS SUMMARY | 2024-01-08 21:58 | External Medical Summary | Summary of Care ---
Author Name Unknown Organization [facility] Address [address] [place] [address] Phone [phone] Care Team Providers Care Lead Clinical Research Coordinator Name Role Phone YenniNgozi quinn Primary Care Provider + [phone] Reason for Visit * Reason Onset Date Comments Appointment 07/13/2023 Encounter Details Date Type Department Care Team Description 07/13/2023 Telephone [facility], [place] [address] [place] [address] Maryellen Esparza MD [address] [place] [address] Appointment Allergies Active Allergy Reactions Severity Noted Date [...] as of this encounter Miscellaneous Notes * Telephone Encounter - ZHANE Stokes - 07/13/2023 4:20 PM EDT Left VM for pt to call back to schedule 4 week return appt with Dr. Esparza or with his family physician. documented in this encounter Plan of Treatment [...] Not on filedocumented as of this encounter Advance Directives Latest Code Status [...] Discussed due to patient's condition Care Teams Lead Clinical Research Coordinator Relationship Specialty Start Date End Date Ngozi Hernandez DO PCP - General Family Medicine 11/17/19 documented as of this encounter
--- OUTSIDE RECORDS SUMMARY | 2024-01-08 21:58 | External Medical Summary | Summary of Care ---
Author Name Unknown Organization [facility] Address [address] [place] [address] Phone [phone] Care Team Providers Care Stores Despatch Hand Name Role Phone YenniNgozi quinn Primary Care Provider + [phone] Reason for Visit * Reason Onset Date Comments Medication Refill 07/15/2023 Encounter Details Date Type Department Care Team Description 07/15/2023 Telephone [facility], [place] [address] [place] [address] Maryellen Esparza MD [address] [place] [address] Medication Refill Allergies Active Allergy Reactions Severity [...] of 07/16/2023) Active Problems Problem Noted Date ADVANCE DIRECTIVE [...] encounter Miscellaneous Notes * Telephone Encounter - RENEA Wilson - 07/15/2023 3:20 PM EDT RE usPIRone HCl 5 MG Oral Tablet (Buspar Pt is asking for refill halfway since he does feel slightly better please send new rx Thank you for your assistance Naya Abdullahi Manager Package II [facility] ([facility]) 07/15/2023,3:21 PM documented in this encounter Plan of Treatment Upcoming Encounters Date Type Specialty Care Team Description 08/12/2023 Telemedicine Psychology Manuel Guajardo LSW [address] [place] [address] 08/16/2023 Telemedicine Family Medicine Maryellen Esparza MD [address] [place] [address] Scheduled Procedures Name Priority Associated Diagnoses Date/Ti [...] Annual for Pts 12 and Over 11/17/2020 07/15/2023 Influenza Vaccine (FLU shot) (#1) 2023 DTaP,Tdap,and [...] Discussed due to patient's condition Care Teams Stores Despatch Hand Relationship Specialty Start Date End Date Ngozi Hernandez DO PCP - General Family Medicine 11/17/19 documented as of this encounter
--- OUTSIDE RECORDS SUMMARY | 2024-01-08 21:58 | External Medical Summary | Summary of Care ---
Author Name Unknown Organization [facility] Address [address] [place] [address] Phone [phone] Care Team Providers Care Stone Setter Name Role Phone Ngozi Hernandez DO Primary Care Provider + [phone] Reason for Visit * Reason Onset Date Comments Appointment 07/15/2023 Encounter Details Date Type Department Care Team Description 07/15/2023 Telephone [facility] [address] [place] [address] Dina Egan, [facility] [address] [place] [address] Appointment Allergies Active Allergy Reactions Severity Noted Date Comments Amoxicillin Rash Medium 02/09/2022 Penicillins 03/02/2022 documented as of this encounter (statuses as of 07/15/2023) Medications Medication Sig Dispensed Refills Start Date [...] as of this encounter (statuses as of 07/15/2023) Active Problems Problem Noted Date ADVANCE DIRECTIVE INFORMATION 09/01/2007 Overview: No, Advance Directive brochure offered , patient declined. documented as of this encounter (statuses as of 07/15/2023) Immunizations Name Administration Dates Next Due PPD [...] Miscellaneous Notes * Telephone Encounter - ZHANE Rowland - 07/15/2023 3:15 PM EDT Referral Details after Behavioral Health Intake: Referral: Internal Psych Resource: Per Dina KRUEGERW recommendation for Therapy. Patient scheduled with Provider Bennett on 08/12@10 documented in this encounter Plan of Treatment Upcoming Encounters Date Type Specialty Care Team Description 08/12/2023 Telemedicine Psychology Manuel Guajardo, VI[facility] [address] [place] [address] 08/16/2023 Telemedicine Family Medicine Maryellen Esparza MD [address] [place] [address] Scheduled Procedures Name Priority Associated Diagnoses Date/Ti [...] Discussed due to patient's condition Care Teams Stone Setter Relationship Specialty Start Date End Date Ngozi Hernandez DO PCP - General Family Medicine 11/17/19 documented as of this encounter
--- OUTSIDE RECORDS SUMMARY | 2024-01-08 21:58 | External Medical Summary | Summary of Care ---
Author Name Unknown Organization [facility] Address [address] [place] [address] Phone [phone] Care Team Providers Care Furnace Erector Name Role Phone Ngozi Hernandez DO Primary Care Provider + [phone] Reason for Visit * Evaluate & Treat - Unlimited Visits (Within 10 days (routine)) - Pending Review Specialty Diagnoses / Procedures Referred By Cleo esquivel Referred To Contact Psychology Diagnoses Anxiety Maryellen Esparza MD [address] [place] [address] Referral ID Status Reason Start Date Expiration Date Visits Requested Visits Authorized [id number] Pending Review Specialty Services Required 07/13/[phone] Encounter Details Date Type Department Care Team Description 07/15/2023 [facility] [address], [place] [id number] [facility] [address], [place] [id number] ЕЛЕНА (generalized anxiety disorder)* Allergies Active Allergy Reactions Severity Noted Date [...] as of this encounter Progress Notes * Dina Egan, RESIDENCE LEASING AGENT - 07/15/2023 2:45 PM EDT Images from the original note were not included. Psychiatry Intake Assessment Patient location: HOME. I was not in a hospital or clinic location. After connecting through [employer], patient was verified with two unique identifiers. Patient (or authorized legal client account representative) was then informed that this was a Telemedicine visit and being conducted confidentially over secure lines. Methods to assure confidentiality were taken. Patient acknowledged consent and understanding of privacy and security of the Telemedicine visit. The patient agreed to participate. Provider reviewed elements of Outpatient Services Description including limits of confidentiality, how to contact the department, risks and benefits of treatment and consent for treatment. Patient is unable to sign acknowledgment receiving form. Signature will be obtained when Covid 19 crisis has passed and in person services resume. For [facility] members, Encounter Form unable to be signed, signature exempt - Telehealth, and will beobtained when Covid 19 crisis has passed and in person services resume. Start Time: 245 pm Stop Time: 300 pm Total Time:15 min History of Present Illness Reason for Referral: Mejia Hartmann is 47 year old. Referred by Dr.O' Esparza for Anxiety Information from referral note: He has been having some issues at [...] anxiety ЕЛЕНА 7 score of 15 points Brief History of Present Illness: Medication prescribed on 07/13 by PCP Hydroxyzine and Buspar No prior hx of mental health. Feeling overwhelmed with life in general. Employed at [employer] Denies childhood trauma Patient reports experiencing restless, anxious, fatigue,ruminating thoughts for the past 7 years but worsened over the last several months. Potential causes/stressors/trauma include: employment has been stressor, over the last 5 years.. Patient's goal is "feel less anxious and get coping skills." Screening Questionnaires: Crisis Planning: What I can do if I ever experience a crisis (much worse symptoms, severe distress or thoughts of self-harm): Art/Music, Exercise/Walk, Talking to loved one or friend or trusted person, and Find solutions People I can call in the event of a crisis: Spouse/partner/significant other: Radha Myles Additional resources I can utilize if the previous steps are ineffective (e.g: ED, hotlines): Suicide and Crisis Lifeline - 988 National Suicide Prevention Lifeline : 988 Crisis Textline : Text "HOME" to 432146 to connect with a crisis counselor Crisis Numbers by [facility]: Mora [facility] Services - Emergency Services [facility] (8-7-YOU CAN) re:solve Crisis Network [place] . The Open Door - Crisis Intervention [facility] Crisis Help-Line [facility] [place] - Crisis Intervention Services [place] Service Access [employer] - Crisis Intervention [place] Choose option 1 [facility] Saw Operator Metal PhelpsAzael Crisis Intervention [place] [facility] - Mental Health Crisis [place] [facility] - Crisis Intervention [place] [facility] - Crisis Intervention Tiffani Durán Potter - Crisis Line Helio Pollard Pike - Mental Health Crisis Hotline [place] [facility] - Crisis Services [place] [facility] Center [place] Service Access [employer] - Crisis Intervention Eduardo - Mental Health Crisis Intervention Services [place] [facility] MH/ID Program [place], [place], [place], [place] - Crisis System [place] [facility] - Crisis Hotline Liz (2-111-584-BELR) [facility] - Crisis Intervention [place] [facility] - Crisis Intervention [facility] - Crisis Services [place] [facility] Health - Crisis Center [place] [facility] - Crisis Hotline Iris (8:30 am-5:00 pm) OR (after 5:00 pm, weekends & holidays) Jo Ann [facility] Crisis Intervention Program [place] - Mental Health Crisis Line Briana Cort[place] and Jane [facility] Crisis Norberto & Ish [facility] - Crisis Intervention [place] [facility] - Mental Health Crisis Service [place] [facility] - Crisis Intervention [facility] - Crisis Intervention [place] [facility] - Help Line [facility] MH/ID Program Masha [facility] - Crisis Intervention [place] [facility] - Crisis Intervention [place] [facility] Emergency Services, [facility] - Crisis Intervention [place] [facility] - Emergency Services [place] [facility] - Crisis Line [place] - [facility]IDS - Suicide and Crisis Intervention Hotline [facility] - Crisis/ Emergency Services [place] [facility] - Emergency Contact Line [place] [facility] - Crisis Line Maldonado ext. 1 [facility] Human Services [facility] - Crisis Intervention Hotline [facility] Crisis Intervention Services SISQ - How many times in the past year have you used an illegal drug or used a prescription medicine for non-medical reasons? 0 How many times in the past year have you had X or more drinks in a day? 2 (x=5 for men and 4 for women) Past History The patient's past history was reviewed and updated. Past Psychiatry History: Are you currently being treated for a mental health or substance use condition? Yes: Name of Treating Clinician: Dr. Hernadez-ЕЛЕНА medications Ever been treated as an outpatient (such as a doctor's or therapist's office or a clinic) for a mental health or substance use condition? No Ever been hospitalized for a mental health or substance use condition? No Ever been to the emergency room for a mental health or substance use condition? No Have you overdosed in the last month? No Mental Status Exam Appearance: within normal limits and casually dressed Behavior: appropriate, cooperative, and pleasant Speech: normal pitch, normal rate, and normal volume Mood: anxious Affect: appropriate Thought Process: within normal limits Thought Content: Delusions: No Hallucinations: No Obsessions: No Homicidal: No Suicidal: No Sensorium: alert and oriented to person, place, time and situation Cognition: grossly intact Insight: good Judgment: good Assessment and Plan Diagnostic Impression: Diagnoses listed below are provisional and further assessment and differential diagnosis is needed. ICD-10-CM 1. ЕЛЕНА (generalized anxiety disorder) F41.1 Recommendations/Plan: Full Treatment plan will be deferred to the clinician to whom the patient has been assigned. Adult Psychiatry for medication consultation: administration and mangement of medications. Collaboration of Care: Yes, provider within [facility], information is shared automatically in medical record Interactive Complexity: did not involve interactive complexity. documented in this encounter Plan of Treatment Upcoming Encounters Date Type Specialty Care Team Description 08/12/2023 Telemedicine Psychology Manuel Guajardo LSW [address] [place] [address] 08/16/2023 Telemedicine Family Medicine Maryellen Esparza MD [address] [place] [address] Scheduled Procedures Name Priority Associated Diagnoses Date/Ti [...] as of this encounter Visit Diagnoses Diagnosis ЕЛЕНА (generalized anxiety disorder)- Primary Generalized anxiety disorder documented in this encounter Advance Directives Latest [...] Discussed due to patient's condition Care Teams Furnace Erector Relationship Specialty Start Date End Date Ngozi Hernandez DO PCP - General Family Medicine 11/17/19 documented as of this encounter
[2024-01-08 22:36] LABS: Basophils # (auto) 0.08 K/uL (0.00-0.20); Basophils % (auto) 0.8 %; Eosinophils # (auto) 0.33 K/uL (0.00-0.50); Eosinophils % (auto) 3.2 %; Hematocrit (blood only) 45.4 % (42.0-52.0); Hemoglobin 15.1 g/dl (14.0-18.0); Immature Granulocytes # (auto) 0.07 K/uL (0.01-0.20); Immature Granulocytes % (auto) 0.7 %; Lymphocytes # (auto) 2.34 K/uL (1.20-3.40); Lymphocytes % (auto) 22.5 %; Mean Corpuscular Hemoglobin 27.6 pg (25.0-34.0); Mean Corpuscular Hgb Conc 33.3 g/dL (32.0-36.0); Mean Platelet Volume 9.8 fL (9.4-12.4); Monocytes # (auto) 0.97 K/uL (0.11-0.59); Monocytes % (auto) 9.3 %; Neutrophils # (auto) 6.59 K/uL (1.40-6.50); Neutrophils % (auto) 63.5 %; Platelet Count 278 K/uL (130-400); RDW Coefficient of Variation 12.9 % (11.5-14.5); RDW Standard Deviation 39.1 fL (36.4-46.3); Red Blood Count 5.47 M/uL (4.70-6.10); White Blood Count 10.38 K/ul (4.8-10.8)
[2024-01-08 22:54] LABS: Albumin Globulin Ratio 1.5 (0.9-2); Albumin Level 4.7 gm/dl (3.4-5.0); Bilirubin,Total 0.4 mg/dl (0.2-1.0); Calcium 9.3 mg/dl (8.6-10.3); Creatinine Clr Calc Pharmacy 93.6 ml/min; Est GFR (African American) 90.5 ml/min; Est GFR (Non-African American) 78.1 ml/min; Globulin 3.1 gm/dl (2.5-4.0); Potassium 3.9 mmol/L (3.5-5.1); Total Protein 7.8 gm/dl (6.0-8.3)
[2024-01-08] MEDS: ONDANSETRON INJ 2 MG/ML 2 ML VIAL IV STA (23:08)
[2024-01-08] MEDS: OPTIRAY 320 500ml IV ONE (23:22)
[2024-01-08 23:32] LABS: Appearance Urine Clear (Clear); Bacteria Urine Automated Negative (Negative); Bilirubin Urine Negative (Negative); Blood Urine Negative (Negative); Cast Urine Automated 0 /lpf (0-5); Color Urine Yellow; Epithelial Cell Urine Auto 0-5 /lpf (0-5); Glucose Urine UA Negative (Negative); Ketones Urine Trace (Negative); Leukocyte Esterase Urine Negative (Negative); Nitrite Urine Negative (Negative); Urobilinogen Urine Negative (Negative); WBC Urine Automated 0 /hpf (0-5); pH Urine 7.5 (4.5-7.5)
[2024-01-08] MEDS: SODIUM CHLORIDE 0.9% 1,000 ML IV ONE (23:34)
--- NOTE | 2024-01-09 | Emergency Department Note ---
Impression & Plan Small bowel obstruction, Nausea & vomiting ED Provider Note Provider: Earle Redd MD DATE OF SERVICE: 01/09/2024 CHIEF COMPLAINT: Abdominal pain and vomiting HISTORY OF PRESENT ILLNESS: Patient is a 48-year-old gentleman past medical history of diverticulitis and prior appendectomy presenting here today reporting diffuse abdominal pain and nausea and vomiting started initially yesterday. No fever or sick contact. Little bit of diarrhea yesterday and may have a bit of bowel movement earlier but significant abdominal distention now. Has not really been able to keep much down today. Prior appendectomy in the past but no other abdominal surgeries. Feels a bit like prior diverticulitis with more discomfort on the left side of the abdomen. No history of small bowel obstructions reported. PAST MEDICAL HISTORY: As noted above MEDICATIONS: Reviewed home medications SOCIAL HISTORY: Denies drug use PHYSICAL EXAM: GENERAL: alert and oriented in no acute distress on stretcher Head: normocephalic and atraumatic EYES: No injection, discharge or icterus. NECK: Trachea midline. ENT: Mucous membranes pink and moist. LUNGS: Airway patent. No retractions. Breath sounds clear with good air entry bilaterally. HEART: Regular rate and rhythm. No chest wall tenderness ABDOMEN: Some distention with more left-sided abdominal tenderness. Not peritoneal. SKIN: Acyanotic, warm, dry, without rashes EXTREMITIES: Without swelling, tenderness or deformity NEUROLOGICAL: No focal deficits. No aphasia. No facial droop or slurred speech. Ambulatory. EK beats per minute. Normal sinus rhythm. No PVC or PAC. No acute ST segment elevation or depression with a QTc of 430 CONTINUOUS CARDIAC MONITORING: was ordered and showed a heart rate of 80s and 90s bpm in normal sinus rhythm Patient's laboratory studies and imaging reviewed. Differential includes Appendicitis, testicular torsion, infections, diverticulitis, UTI, obstruction, mesenteric ischemia, aortic pathology, inflammatory bowel disease, renal colic, PUD, pancreatitis, biliary pathology, hernia, volvulus, constipation, as well as other pathologies. 1 view chest x-ray obtained for NG tube placement with appears to insert the stomach below the diaphragm on my interpretation IMPRESSION/MEDICAL DECISION MAKING: Seen at time of high volume and acuity and triage orders were initially placed. Blood work here without significant cytosis or anemia. No significant lecture light abnormality or signs of renal dysfunction. No evidence concerning for hepatitis or pancreatitis. EKG troponin completed to exclude cardiac etiology as well. Urinalysis sent. CT abdomen pelvis ordered given some IV fluid and Zofran to help with symptoms here. Denies complaints. Questions could be viral gastroenteritis versus diverticulitis given the patient's history versus other possible occult intra-abdominal pathology. CT imaging shows abnormal fluid distended small bowel loops per the report without clear focal transition point but asymmetric questioning enteritis versus small bowel obstruction no evidence of pneumatosis or pneumoperitoneum by the radiologist report. Discussed with the patient. Stomach is distended and imaging given his nausea discussed with him NG tube placement. Will bring into the hospital for further care. Hospitalist team contacted. Given some IV morphine for pain control with more pain on the left side of his abdomen. NG tube was returning some gastric contents. DIAGNOSIS: Small bowel obstruction, nausea and vomiting DISPOSITION: Hospitalist will evaluate Patient was agreeable with this plan. Past Med/Surg History Medical History (Updated 01/09/24 @ 00:20 by Earle Redd M.D.) No significant past medical history Surgical History History of shoulder surgery History of appendectomy Family History Other Family history non-contributory Social History Smoking Status: Never smoker Second Hand Exposure: No; Do You Dip or Chew Tobacco: No (in the past); Hx Alcohol Use: Yes Hx Substance Use: No Preferred Language: Estonian Communication Ability: Effective Audiometric Technician Required: No Beliefs That Will Affect Care: None Current Living Situation: Alone Feels Safe at Home: Yes Assistive Devices: None Allergies Allergies Allergy/AdvReac Type Severity Reaction Status Date / Time Penicillins Allergy Unknown Rash Verified 01/08/24 22:50 Home Meds Home Medications Medication Instructions Recorded Confirmed paroxetine HCl 40 mg tablet (Paxil) 40 mg PO QPM 01/08/24 01/08/24 Results & Data (ED) Vital Signs Vital Signs - 24 hr 01/08/24 21:56 01/08/24 22:06 01/08/24 23:00 Temperature 36.4 C L Temperature Source Temporal Artery Scan Pulse Rate 107 H 99 H 96 H Pulse Rate from SpO2 Sensor 96 H Respiratory Rate 18 20 Respiratory Effort / Characteristics Non-Labored Spontaneous Respiratory Depth Normal Blood Pressure 148/96 H 137/94 Blood Pressure Mean 113 108 Pulse Oximetry 94 94 Oxygen Delivery Method Room Air Room Air Sepsis Recent Fever Within 48 Hours No Sepsis New/Unexplained Change in Mental Status No Sepsis Action Taken by Nursing No Action Required 01/08/24 23:30 01/09/24 00:00 01/09/24 00:30 Temperature Temperature Source Pulse Rate 93 H 86 85 Pulse Rate from SpO2 Sensor 92 H 87 86 Respiratory Rate 20 18 21 Respiratory Effort / Characteristics Respiratory Depth Blood Pressure 144/94 H 142/90 H 136/89 Blood Pressure Mean 110 107 104 Pulse Oximetry 93 95 97 Oxygen Delivery Method Sepsis Recent Fever Within 48 Hours Sepsis New/Unexplained Change in Mental Status Sepsis Action Taken by Nursing 01/09/24 01:00 01/09/24 01:01 Temperature Temperature Source Pulse Rate 93 H 92 H Pulse Rate from SpO2 Sensor Respiratory Rate 17 23 Respiratory Effort / Characteristics Respiratory Depth Blood Pressure 147/97 H Blood Pressure Mean 113 Pulse Oximetry Oxygen Delivery Method Sepsis Recent Fever Within 48 Hours Sepsis New/Unexplained Change in Mental Status Sepsis Action Taken by Nursing Laboratory Data 01/08/24 22:18 01/08/24 22:18 Lab Results 01/08/24 01/08/24 Range/Units 22:18 23:15 WBC 10.38 (4.8-10.8) K/ul RBC 5.47 (4.70-6.10) M/uL Hgb 15.1 (14.0-18.0) g/dl Hct 45.4 (42.0-52.0) % MCV 83.0 (80.0-100.0) fL MCH 27.6 (25.0-34.0) pg MCHC 33.3 (32.0-36.0) g/dL RDW Std Deviation 39.1 (36.4-46.3) fL RDW Coeff of Kym 12.9 (11.5-14.5) % Plt Count 278 (130-400) K/uL MPV 9.8 (9.4-12.4) fL Immature Gran % (Auto) 0.7 % Neut % (Auto) 63.5 % Lymph % (Auto) 22.5 % [place] % (Auto) 9.3 % Eos % (Auto) 3.2 % Baso % (Auto) 0.8 % Neut # (Auto) 6.59 H (1.40-6.50) K/uL Lymph # (Auto) 2.34 (1.20-3.40) K/uL [place] # (Auto) 0.97 H (0.11-0.59) K/uL Eos # (Auto) 0.33 (0.00-0.50) K/uL Baso # (Auto) 0.08 (0.00-0.20) K/uL Immature Gran # (Auto) 0.07 (0.01-0.20) K/uL Sodium 138 (136-145) mmol/L Potassium 3.9 (3.5-5.1) mmol/L Chloride 101 (98-107) mmol/L Carbon Dioxide 28 (21-32) mmol/L Anion Gap 9 (3-11) BUN 20 (6-23) mg/dl Creatinine 1.11 (0.6-1.4) mg/dl Est Cr Clr Drug Dosing 93.6 ml/min Est GFR ( Amer) 90.5 ml/min Est GFR (Non-Af Amer) 78.1 ml/min BUN/Creatinine Ratio 18.0 (10-20) Glucose 118 H (70-99(Fasting)) mg/dl Calcium 9.3 (8.6-10.3) mg/dl Magnesium 2.0 (1.7-2.4) mg/dl Total Bilirubin 0.4 (0.2-1.0) mg/dl AST 16 (13-39) U/L ALT 24 (7-52) U/L Alkaline Phosphatase 57 (34-104) U/L Troponin I High Sens 4.0 (0-20) pg/ml Total Protein 7.8 (6.0-8.3) gm/dl Albumin 4.7 (3.4-5.0) gm/dl Globulin 3.1 (2.5-4.0) gm/dl Albumin/Globulin Ratio 1.5 (0.9-2) Lipase 20 (11-82) U/L Urine Color Yellow Urine Appearance Clear (Clear) Urine pH 7.5 (4.5-7.5) Ur Specific [place] 1.030 (1.000-1.030) Urine Protein Trace H (Negative) Urine Glucose (UA) Negative (Negative) Urine Ketones Trace H (Negative) Urine Blood Negative (Negative) Urine Nitrite Negative (Negative) Urine Bilirubin Negative (Negative) Urine Urobilinogen Negative (Negative) Ur Leukocyte Esterase Negative (Negative) Urine WBC (Auto) 0 (0-5) /hpf Urine RBC (Auto) 5-10 H (0-4) /hpf U Hyaline Cast (Auto) 0 (0-5) /lpf U Epithel Cells (Auto) 0-5 (0-5) /lpf Urine Bacteria (Auto) Negative (Negative) Administered Medications Lorazepam 0.5 mg/ Syringe 0.5 mls @ 2 mls/min IV Q4H PRN PRN Reason: Anxiety/Agitation Stop: 02/08/24 00:58 Last Admin: 01/09/24 03:44 Dose: 2 mls/min Documented By: EVERT Lactated Ringer's (Lr) 1,000 mls @ 60 mls/hr IV .[id number] STA Stop: 01/09/24 18:02 Last Admin: 01/09/24 02:30 Dose: 60 mls/hr Documented By: EKATERINA Discontinued Medications Sodium Chloride (Nss) 1,000 mls @ 999 mls/hr IV .[id number] ONE Stop: 01/08/24 23:55 Last Infusion: 01/09/24 00:45 Dose: Infused Documented By: Admin: 01/08/24 23:34 Dose: 999 mls/hr Documented By: EKATERINA Acetaminophen (Ofirmev) 1,000 mg in 100 mls @ 400 mls/hr IV NOW STA Stop: 01/09/24 01:34 Last Admin: 01/09/24 03:43 Dose: 400 mls/hr Documented By: EVERT Ioversol (Optiray 320 500ml) 86 ml IV ONCE ONE Stop: 01/08/24 23:26 Last Admin: 01/08/24 23:22 Dose: 86 ml Documented By: JOAO Morphine Sulfate (Morphine Sulfate 4 Mg/Ml 1 Ml Carp\Vial) 4 mg IV NOW STA Stop: 01/09/24 00:20 Last Admin: 01/09/24 01:27 Dose: 4 mg Documented By: EKATERINA Ondansetron HCl (Ondansetron Inj 2 Mg/Ml 2 Ml Vial) 4 mg IV NOW STA Stop: 01/08/24 22:56 Last Admin: 01/08/24 23:08 Dose: 4 mg Documented By: EKATERINA Imaging Data Radiologist's Impression: Abdomen/Pelvis CT 01/08/24 22:56 Exam(s): CT ABDOMEN + PELVIS With Contrast IV Amt: 86 ML EXAM: CT Abdomen and Pelvis With Intravenous Contrast CLINICAL HISTORY: abd pain vomiting. TECHNIQUE: Axial computed tomography images of the abdomen and pelvis with intravenous contrast. Automated exposure control was utilized for the study. A dose lowering technique was utilized adhering to the principles of ALARA. CONTRAST: Patient received 86 ML of IV contrast COMPARISON: No relevant prior studies available. FINDINGS: Lung bases: Unremarkable. No mass. No consolidation. ABDOMEN: Liver: Hepatic steatosis. Gallbladder and bile ducts: Unremarkable. No calcified stones. No ductal dilation. Pancreas: Unremarkable. No mass. No ductal dilation. Spleen: Unremarkable. No splenomegaly. Adrenals: Unremarkable. No mass. Kidneys and ureters: Simple left renal cyst. No follow-up of this simple cyst is necessary. No hydronephrosis. Stomach and bowel: Multiple abnormal fluid distended small bowel loops in the left inferior abdomen and midline pelvis, measuring 3.2 cm in size. There is no clear focal transition point. However, there is asymmetric decompression of the distal small bowel loops in the right lower quadrant. PELVIS: Appendix: Status post appendectomy. Bladder: Unremarkable. No mass. Reproductive: Unremarkable as visualized. ABDOMEN and PELVIS: Intraperitoneal space: Unremarkable. No free air. No significant fluid collection. Bones/joints: No acute fracture. No dislocation. Soft tissues: Unremarkable. Vasculature: Unremarkable. No abdominal aortic aneurysm. Lymph nodes: Unremarkable. No enlarged lymph nodes. IMPRESSION: Multiple abnormal fluid distended small bowel loops in the left inferior abdomen and midline pelvis, measuring 3.2 cm in size. There is no clear focal transition point; however, there is asymmetric decompression of the distal small bowel loops in the right lower quadrant. Findings may represent enteritis. However, a partial small bowel obstruction is difficult to exclude given this appearance. No pneumatosis or pneumoperitoneum. Electronically signed by: Donavan Etienne MD 01/09/24 00:09 AM Discharge Plan Visit Data Chief Complaint: Abdominal Pain Stated Complaint: ABD PAIN, NAUSEA, VOMITING ED Provider: Earle Redd Discharge Problem: Small bowel obstruction, Nausea & vomiting Patient Disposition: Admitted As Inpatient Discharge Instructions Interventions: ED Discharge Assessment Last Done: 01/09/24 02:30
--- NOTE | 2024-01-09 00:10 | CT Scan Report ---
Exam(s): CT ABDOMEN + PELVIS With Contrast IV Amt: 86 ML EXAM: CT Abdomen and Pelvis With Intravenous Contrast CLINICAL HISTORY: abd pain vomiting. TECHNIQUE: Axial computed tomography images of the abdomen and pelvis with intravenous contrast. Automated exposure control was utilized for the study. A dose lowering technique was utilized adhering to the principles of ALARA. CONTRAST: Patient received 86 ML of IV contrast COMPARISON: No relevant prior studies available. FINDINGS: Lung bases: Unremarkable. No mass. No consolidation. ABDOMEN: Liver: Hepatic steatosis. Gallbladder and bile ducts: Unremarkable. No calcified stones. No ductal dilation. Pancreas: Unremarkable. No mass. No ductal dilation. Spleen: Unremarkable. No splenomegaly. Adrenals: Unremarkable. No mass. Kidneys and ureters: Simple left renal cyst. No follow-up of this simple cyst is necessary. No hydronephrosis. Stomach and bowel: Multiple abnormal fluid distended small bowel loops in the left inferior abdomen and midline pelvis, measuring 3.2 cm in size. There is no clear focal transition point. However, there is asymmetric decompression of the distal small bowel loops in the right lower quadrant. PELVIS: Appendix: Status post appendectomy. Bladder: Unremarkable. No mass. Reproductive: Unremarkable as visualized. ABDOMEN and PELVIS: Intraperitoneal space: Unremarkable. No free air. No significant fluid collection. Bones/joints: No acute fracture. No dislocation. Soft tissues: Unremarkable. Vasculature: Unremarkable. No abdominal aortic aneurysm. Lymph nodes: Unremarkable. No enlarged lymph nodes. IMPRESSION: Multiple abnormal fluid distended small bowel loops in the left inferior abdomen and midline pelvis, measuring 3.2 cm in size. There is no clear focal transition point; however, there is asymmetric decompression of the distal small bowel loops in the right lower quadrant. Findings may represent enteritis. However, a partial small bowel obstruction is difficult to exclude given this appearance. No pneumatosis or pneumoperitoneum. Electronically signed by: Donavan Etienne MD 01/09/24 00:09 AM
[2024-01-09 00:14] LABS: Protein Urine Trace (Negative)
--- NOTE | 2024-01-09 01:20 | History & Physical Report ---
Date of Service January 09, 2024 Assessment & Plan (1) Small bowel obstruction: Plan: Partial SBO on CT imaging Past history appendectomy Situational hypertension Anxiety contributory Hyperglycemia rule out DM GMF Bowel rest, analgesia, anxiolytic as needed Continue NGT decompression General Surgery consult Re: Partial SBO Check hemoglobin A1c DVT prophylaxis. Lovenox subcu Full code Text document was generated using [employer] voice recognition software. It may contain grammatical or spelling errors. Kindly contact undersigned for clarification of any documentation item in question. History of Present Illness Chief Complaint: Abdominal pain Primary Care Provider: Dr. Stiles (No recent follow-up at the clinic.) History obtained from patient and records. Medical history significant for anxiety/mood disorder, diverticulitis. Last confinement October 2019 for acute diverticulitis resolved with medical management. 1 day history of diffuse abdominal pain associated with nausea, bilious emesis. Good bowel movements. Denies chest pain, SOB, fever, chills. NGT inserted at the ER for partial SBO. Medical History as above Surgical History : Appendectomy, knee surgeries, shoulder surgery Family History : mood disorder Personal/Social history : Non-smoker, occasional EtOH intake, [employer] employee Allergies Allergy/AdvReac Type Severity Reaction Status Date / Time Penicillins Allergy Unknown Rash Verified 01/08/24 22:50 Home Medications Medication Instructions Recorded Confirmed Type paroxetine HCl 40 mg tablet (Paxil) 40 mg PO QPM 01/08/24 01/08/24 History Past Med/Surg History Medical History No significant past medical history Surgical History History of shoulder surgery History of appendectomy Family History Other Family history non-contributory Social History Smoking Status: Never smoker Second Hand Exposure: No; Do You Dip or Chew Tobacco: No (in the past); Hx Alcohol Use: No Hx Substance Use: No Preferred Language: Georgian Communication Ability: Effective Civil Engineering Intern Required: No Beliefs That Will Affect Care: None Current Living Situation: Significant Other Feels Safe at Home: Yes Safety Concerns: Feels Safe At This Time Assistive Devices: None Review of Systems Review of Systems: As per HPI, all other systems reviewed and negative Physical Exam Physical Exam: GENERAL: uncomfortable, anxious, obese, no respiratory distress SKIN: Normal color, warm HEENT: [place] palpebral conjunctivae, no ptosis, dry buccal mucosa, NGT in place NECK : Supple, short neck, no tenderness CHEST : CTA, no tenderness HEART : RRR, no obvious murmurs ABDOMEN: Some distention, no overt tenderness EXTREMITIES : Minimal LE swelling, no LE tenderness, no other conspicuous deformities noted NEUROLOGIC : Coherent, no facial asymmetry, no other gross focality Results & Data Results & Data Vital Signs (Past 12 Hours) Vital Signs Temp Pulse Resp BP Pulse Ox O2 Del Method 01/08/24 23:30 93 H 20 144/94 H 93 01/08/24 23:00 96 H 20 137/94 94 Room Air 01/08/24 22:06 99 H 01/08/24 21:56 36.4 C L 107 H 18 148/96 H 94 Room Air Laboratory Results Laboratory Results WBC 10.38 K/ul (4.8-10.8) 01/08/24 22:18 RBC 5.47 M/uL (4.70-6.10) 01/08/24 22:18 Hgb 15.1 g/dl (14.0-18.0) 01/08/24 22:18 Hct 45.4 % (42.0-52.0) 01/08/24 22:18 MCV 83.0 fL (80.0-100.0) 01/08/24 22:18 MCH 27.6 pg (25.0-34.0) 01/08/24 22:18 MCHC 33.3 g/dL (32.0-36.0) 01/08/24 22:18 RDW Std Deviation 39.1 fL (36.4-46.3) 01/08/24 22:18 RDW Coeff of Kym 12.9 % (11.5-14.5) 01/08/24 22:18 Plt Count 278 K/uL (130-400) 01/08/24 22:18 MPV 9.8 fL (9.4-12.4) 01/08/24 22:18 Immature Gran % (Auto) 0.7 % 01/08/24 22:18 Neut % (Auto) 63.5 % 01/08/24 22:18 Lymph % (Auto) 22.5 % 01/08/24 22:18 [place] % (Auto) 9.3 % 01/08/24 22:18 Eos % (Auto) 3.2 % 01/08/24 22:18 Baso % (Auto) 0.8 % 01/08/24 22:18 Neut # (Auto) 6.59 K/uL (1.40-6.50) H 01/08/24 22:18 Lymph # (Auto) 2.34 K/uL (1.20-3.40) 01/08/24 22:18 [place] # (Auto) 0.97 K/uL (0.11-0.59) H 01/08/24 22:18 Eos # (Auto) 0.33 K/uL (0.00-0.50) 01/08/24 22:18 Baso # (Auto) 0.08 K/uL (0.00-0.20) 01/08/24 22:18 Immature Gran # (Auto) 0.07 K/uL (0.01-0.20) 01/08/24 22:18 Sodium 138 mmol/L (136-145) 01/08/24 22:18 Potassium 3.9 mmol/L (3.5-5.1) 01/08/24 22:18 Chloride 101 mmol/L (98-107) 01/08/24 22:18 Carbon Dioxide 28 mmol/L (21-32) 01/08/24 22:18 Anion Gap 9 (3-11) 01/08/24 22:18 BUN 20 mg/dl (6-23) 01/08/24 22:18 Creatinine 1.11 mg/dl (0.6-1.4) 01/08/24 22:18 Est Cr Clr Drug Dosing 93.6 ml/min 01/08/24 22:18 Est GFR ( Amer) 90.5 ml/min 01/08/24 22:18 Est GFR (Non-Af Amer) 78.1 ml/min 01/08/24 22:18 BUN/Creatinine Ratio 18.0 (10-20) 01/08/24 22:18 Glucose 118 mg/dl (70-99(Fasting)) H 01/08/24 22:18 Calcium 9.3 mg/dl (8.6-10.3) 01/08/24 22:18 Total Bilirubin 0.4 mg/dl (0.2-1.0) 01/08/24 22:18 AST 16 U/L (13-39) 01/08/24 22:18 ALT 24 U/L (7-52) 01/08/24 22:18 Alkaline Phosphatase 57 U/L (34-104) 01/08/24 22:18 Troponin I High Sens 4.0 pg/ml (0-20) 01/08/24 22:18 Total Protein 7.8 gm/dl (6.0-8.3) 01/08/24 22:18 Albumin 4.7 gm/dl (3.4-5.0) 01/08/24 22:18 Globulin 3.1 gm/dl (2.5-4.0) 01/08/24 22:18 Albumin/Globulin Ratio 1.5 (0.9-2) 01/08/24 22:18 Lipase 20 U/L (11-82) 01/08/24 22:18 Urine Color Yellow 01/08/24 23:15 Urine Appearance Clear (Clear) 01/08/24 23:15 Urine pH 7.5 (4.5-7.5) 01/08/24 23:15 Ur Specific [place] 1.030 (1.000-1.030) 01/08/24 23:15 Urine Protein Trace (Negative) H 01/08/24 23:15 Urine Glucose (UA) Negative (Negative) 01/08/24 23:15 Urine Ketones Trace (Negative) H 01/08/24 23:15 Urine Blood Negative (Negative) 01/08/24 23:15 Urine Nitrite Negative (Negative) 01/08/24 23:15 Urine Bilirubin Negative (Negative) 01/08/24 23:15 Urine Urobilinogen Negative (Negative) 01/08/24 23:15 Ur Leukocyte Esterase Negative (Negative) 01/08/24 23:15 Urine WBC (Auto) 0 /hpf (0-5) 01/08/24 23:15 Urine RBC (Auto) 5-10 /hpf (0-4) H 01/08/24 23:15 U Hyaline Cast (Auto) 0 /lpf (0-5) 01/08/24 23:15 U Epithel Cells (Auto) 0-5 /lpf (0-5) 01/08/24 23:15 Urine Bacteria (Auto) Negative (Negative) 01/08/24 23:15 Impressions Abdomen/Pelvis CT 01/08/24 22:56 Exam(s): CT ABDOMEN + PELVIS With Contrast IV Amt: 86 ML EXAM: CT Abdomen and Pelvis With Intravenous Contrast CLINICAL HISTORY: abd pain vomiting. TECHNIQUE: Axial computed tomography images of the abdomen and pelvis with intravenous contrast. Automated exposure control was utilized for the study. A dose lowering technique was utilized adhering to the principles of ALARA. CONTRAST: Patient received 86 ML of IV contrast COMPARISON: No relevant prior studies available. FINDINGS: Lung bases: Unremarkable. No mass. No consolidation. ABDOMEN: Liver: Hepatic steatosis. Gallbladder and bile ducts: Unremarkable. No calcified stones. No ductal dilation. Pancreas: Unremarkable. No mass. No ductal dilation. Spleen: Unremarkable. No splenomegaly. Adrenals: Unremarkable. No mass. Kidneys and ureters: Simple left renal cyst. No follow-up of this simple cyst is necessary. No hydronephrosis. Stomach and bowel: Multiple abnormal fluid distended small bowel loops in the left inferior abdomen and midline pelvis, measuring 3.2 cm in size. There is no clear focal transition point. However, there is asymmetric decompression of the distal small bowel loops in the right lower quadrant. PELVIS: Appendix: Status post appendectomy. Bladder: Unremarkable. No mass. Reproductive: Unremarkable as visualized. ABDOMEN and PELVIS: Intraperitoneal space: Unremarkable. No free air. No significant fluid collection. Bones/joints: No acute fracture. No dislocation. Soft tissues: Unremarkable. Vasculature: Unremarkable. No abdominal aortic aneurysm. Lymph nodes: Unremarkable. No enlarged lymph nodes. IMPRESSION: Multiple abnormal fluid distended small bowel loops in the left inferior abdomen and midline pelvis, measuring 3.2 cm in size. There is no clear focal transition point; however, there is asymmetric decompression of the distal small bowel loops in the right lower quadrant. Findings may represent enteritis. However, a partial small bowel obstruction is difficult to exclude given this appearance. No pneumatosis or pneumoperitoneum. Electronically signed by: Donavan Etienne MD 01/09/24 00:09 AM Diagnostic Findings EKG as per my interpretation : Rate 90, NSR, normal axis, no ischemia
[2024-01-09] MEDS: MoRPHine SULFATE 4 MG/ML 1 ML CARP\\VIAL IV STA (01:27)
[2024-01-09] MEDS: LACTATED RINGER'S 1,000 ML IV STA (02:30)
[2024-01-09] MEDS: ACETAMINOPHEN 1,000 MG/100 ML VIAL IV STA (03:43)
[2024-01-09] MEDS: LORazepam 0.5 MG in SYRINGE 0.25 ML IV PRN (03:44)
[2024-01-09] MEDS: LORazepam 0.5 MG in SYRINGE 0.25 ML IV STA (04:12)
[2024-01-09 06:13] LABS: Basophils # (auto) 0.05 K/uL (0.00-0.20); Basophils % (auto) 0.5 %; Eosinophils # (auto) 0.17 K/uL (0.00-0.50); Eosinophils % (auto) 1.8 %; Hemoglobin 14.5 g/dl (14.0-18.0); Immature Granulocytes # (auto) 0.05 K/uL (0.01-0.20); Immature Granulocytes % (auto) 0.5 %; Lymphocytes # (auto) 1.69 K/uL (1.20-3.40); Lymphocytes % (auto) 17.8 %; Mean Corpuscular Hemoglobin 27.4 pg (25.0-34.0); Mean Corpuscular Hgb Conc 32.2 g/dL (32.0-36.0); Mean Corpuscular Volume 84.9 fL (80.0-100.0); Monocytes # (auto) 0.76 K/uL (0.11-0.59); Neutrophils # (auto) 6.77 K/uL (1.40-6.50); Neutrophils % (auto) 71.4 %; Platelet Count 273 K/uL (130-400); RDW Coefficient of Variation 13.1 % (11.5-14.5); RDW Standard Deviation 39.9 fL (36.4-46.3); White Blood Count 9.49 K/ul (4.8-10.8)
[2024-01-09 06:33] LABS: BUN Creatinine Ratio 16.2 (10-20); Est GFR (African American) 96.8 ml/min; Est GFR (Non-African American) 83.5 ml/min; Potassium 4.4 mmol/L (3.5-5.1)
--- NOTE | 2024-01-09 07:13 | Electrocardiogram Report ---
Test Reason : Blood Pressure : / mmHG Vent. Rate : 093 BPM Atrial Rate : 093 BPM P-R Int : 148 ms QRS Dur : 088 ms QT Int : 346 ms P-R-T Axes : 044 004 041 degrees QTc Int : 430 ms Normal sinus rhythm Normal ECG When compared with ECG of 03-OCT-2020 11:36, No significant change was found Confirmed by Singh Muñoz ([id number]) on 01/09/2024 7:13:26 AM Referred By: REFERRED SELF Confirmed By:Richi Muñoz
[2024-01-09 07:28] LABS: Estimated Average Glucose 120 mg/dl; Hemoglobin A1C 5.8 % (4.5-5.6)
[2024-01-09] MEDS: ENOXAPARIN INJ 40 MG/0.4 ML SYR SQ SCH (07:54)
[2024-01-09] MEDS: KETOROLAC TROMETHAMINE 15 MG/ML VIAL IV PRN (08:02)
--- NOTE | 2024-01-09 09:02 | XRay Report ---
[facility] CLINICAL HISTORY: ng tube placement COMPARISON STUDY: CT of the abdomen and pelvis January 08, 2024. FINDINGS: Tip of the nasogastric tube is within the body of the stomach. No evidence for free air. IMPRESSION: Tip of nasogastric tube within the body of the stomach. ACT 112: Negative or not required by law. Electronically signed by: Kaden Cantu M.D. 01/09/2024 9:01 AM
--- NOTE | 2024-01-09 11:37 | Surgery Consultation ---
Date of Consultation January 09, 2024 Assessment & Plan (1) Small bowel obstruction: Unusual considering his limited surgical history. May actually be an enteritis. No urgent indication for surgical intervention. NG tube in place. IV fluids NPO. We will recheck KUB tomorrow History of Present Illness Attending Physician: Clem Dunn MD History of Present Illness Patient seen. Admitted last night for increasing abdominal pain nausea vomiting at home. Workup has revealed small bowel obstruction. His only surgical history is that of a laparoscopic appendectomy. He has never had small bowel obstruction in the past. Allergies Allergy/AdvReac Type Severity Reaction Status Date / Time Penicillins Allergy Unknown Rash Verified 01/08/24 22:50 Home Medications Medication Instructions Recorded Confirmed Type paroxetine HCl 40 mg tablet (Paxil) 40 mg PO QPM 01/08/24 01/08/24 History Patient History Medical History No significant past medical history Surgical History History of shoulder surgery History of appendectomy Family History Other Family history non-contributory Social History Smoking Status: Never smoker Second Hand Exposure: No; Do You Dip or Chew Tobacco: No (in the past); Hx Alcohol Use: No Hx Substance Use: No Preferred Language: Ukrainian Communication Ability: Effective [employer] Principal Required: No Beliefs That Will Affect Care: None Current Living Situation: Significant Other Feels Safe at Home: Yes Safety Concerns: Feels Safe At This Time Assistive Devices: None Review of Systems Review of Systems: All systems reviewed & are unremarkable except as noted in HPI & below Physical Exam Constitutional: WD/WN, vitals as above no acute distress and not ill appearing Eyes: PERRL, conjunctivae normal, anicteric sclerae EOM intact bilaterally ENMT: external ear and nose normal, oropharynx normal Ears: no hearing impairment Neck: trachea midline, no thyromegaly Respiratory: normal respiratory effort; no respiratory distress and does not use accessory muscles Cardiovascular: Rate/Rhythm: regular rate and regular rhythm Gastrointestinal (Abdomen): Soft. Mild distention. Mild tenderness. No peritoneal signs. Skin: no rashes, warm and dry Psychiatric: Orientation: alert, oriented x 3 and cooperative Results & Data Vital Signs (Past 12 Hours) Vital Signs Temp Pulse Pulse Resp BP BP Pulse Ox 01/09/24 07:49 36.5 C 96 H 18 127/83 92 01/09/24 03:04 36.8 C 87 18 133/85 94 01/09/24 02:30 85 17 134/92 92 01/09/24 01:30 93 H 15 135/101 H 91 01/09/24 01:01 92 H 23 01/09/24 01:00 93 H 17 147/97 H 01/09/24 00:30 85 21 136/89 97 01/09/24 00:00 86 18 142/90 H 95 O2 Del Method 01/09/24 07:49 Room Air 01/09/24 03:04 Room Air 01/09/24 02:30 Room Air 01/09/24 01:30 01/09/24 01:01 01/09/24 01:00 01/09/24 00:30 01/09/24 00:00 PG Care Time/CCT Total # of Minutes Spent Total Time Spent with Patient: Total time spent is greater than 50% in coordination of care (as documented) at patient's floor/unit and/or counseling patient: Coding Level of Care Code 23096 IN/OBS CONSULT LVL 3,45M Diagnoses Small bowel obstruction K56.609
--- NOTE | 2024-01-09 12:53 | Hospitalist Progress Note ---
Date of Service January 09, 2024 Assessment & Plan (1) Small bowel obstruction: Plan: Small bowel obstruction Suspected enteritis H/O appendectomy --CT ABD:Multiple abnormal fluid distended small bowel loops in the left inferior abdomen and midline pelvis, measuring 3.2 cm in size. There is no clear focal transition point; however, there is asymmetric decompression of the distal small bowel loops in the right lower quadrant. Findings may represent enteritis. However, a partial small bowel obstruction is difficult to exclude given this appearance. No pneumatosis or pneumoperitoneum. --Continue bowel rest, gentle IV fluids --Continue NG tube --Plan for KUB tomorrow --Appreciate surgery input --Will obtain stool studies if develops diarrhea --Pain control Situational hypertension Monitor BP Prediabetes HbA1c 5.8 Mood disorder Continue paroxetine as able DVT Px: Lovenox SQ Code Status Full code Admission and Anticipated Discharge Date Admission Date: January 09, 2024 Subjective Patient is seen and examined at bedside Admits to have nausea, vomiting overnight Reports left lower quadrant abdominal pain Feels nauseous today Has NG tube in place Denies any chest pain, dyspnea No other complaints Review of Systems Review of Systems: All systems reviewed & are unremarkable except as noted in Subjective Physical Exam Physical Exam: Physical Exam: Vitals signs as noted above General Appearance:Obese, no apparent distress Head: normocephalic, Atraumatic,+NG tube Eyes: normal inspection, EOMI Neck: supple, Trachea midline Respiratory/Chest: Normal breath sounds, CTA, No accessory muscle use Cardiovascular: S1, S2, No murmur Abdomen/GI:Soft, LLQ mild tender, mildly distended, Bowel sounds present Extremities/Musculoskeletal:normal inspection, no edema Neurologic/Psych:AAOX3, grossly no focal neurological deficits Skin: normal color, warm Results & Data Results & Data Vital Signs (Past 12 Hours) Vital Signs Temp Pulse Pulse Resp BP BP Pulse Ox 01/09/24 07:49 36.5 C 96 H 18 127/83 92 01/09/24 03:04 36.8 C 87 18 133/85 94 01/09/24 02:30 85 17 134/92 92 01/09/24 01:30 93 H 15 135/101 H 91 01/09/24 01:01 92 H 23 01/09/24 01:00 93 H 17 147/97 H O2 Del Method 01/09/24 07:49 Room Air 01/09/24 03:04 Room Air 01/09/24 02:30 Room Air 01/09/24 01:30 01/09/24 01:01 01/09/24 01:00 Laboratory Results Short CBC 01/08/24 01/09/24 Range/Units 22:18 05:23 WBC 10.38 9.49 (4.8-10.8) K/ul Hgb 15.1 14.5 (14.0-18.0) g/dl Hct 45.4 45.0 (42.0-52.0) % Plt Count 278 273 (130-400) K/uL BMP 01/08/24 01/09/24 22:18 05:23 Sodium 138 137 Potassium 3.9 4.4 Chloride 101 104 Carbon Dioxide 28 27 BUN 20 17 Creatinine 1.11 1.05 Glucose 118 H 128 H Calcium 9.3 9.0 Liver Function 01/08/24 Range/Units 22:18 Total Bilirubin 0.4 (0.2-1.0) mg/dl AST 16 (13-39) U/L ALT 24 (7-52) U/L Alkaline Phosphatase 57 (34-104) U/L Albumin 4.7 (3.4-5.0) gm/dl Urine 01/08/24 Range/Units 23:15 Urine Color Yellow Urine Appearance Clear (Clear) Urine pH 7.5 (4.5-7.5) Ur Specific [place] 1.030 (1.000-1.030) Urine Protein Trace H (Negative) Urine Glucose (UA) Negative (Negative)
[2024-01-09] MEDS: LACTATED RINGER'S 1,000 ML IV SCH (20:11)
[2024-01-09] MEDS: PARoxetine HCL 20 MG TAB PO SCH (20:11)
[2024-01-10 07:13] LABS: Mean Corpuscular Hemoglobin 27.6 pg (25.0-34.0); Mean Corpuscular Hgb Conc 32.6 g/dL (32.0-36.0); Mean Corpuscular Volume 84.8 fL (80.0-100.0); Mean Platelet Volume 9.9 fL (9.4-12.4); Platelet Count 222 K/uL (130-400); RDW Coefficient of Variation 13.1 % (11.5-14.5); Red Blood Count 5.07 M/uL (4.70-6.10); White Blood Count 8.11 K/ul (4.8-10.8)
[2024-01-10 07:28] LABS: BUN Creatinine Ratio 17.6 (10-20); Calcium 8.5 mg/dl (8.6-10.3); Creatinine Clr Calc Pharmacy 114.2 ml/min; Est GFR (African American) 115.1 ml/min; Est GFR (Non-African American) 99.3 ml/min; Potassium 3.8 mmol/L (3.5-5.1)
[2024-01-10] MEDS: SODIUM CHLORIDE 0.9% 500 ML IV ONE (09:40)
[2024-01-10] MEDS: HYDROmorphone INJ 1 MG/ML SYRINGE IV PRN (09:51)
--- NOTE | 2024-01-10 11:10 | Surgery Progress Note ---
Date of Service January 10, 2024 Assessment & Plan (1) Small bowel obstruction: Plan: ngt functioning. will increase IVF's and give bolus will stop toradol and start dilaudid for pain recheck KUB today. unclear exactly what's going on. low threshold for repeat ct (2) Nausea & vomiting: Admission and Anticipated Discharge Date Admission Date: January 09, 2024 Subjective Patient seen. he continues to have pain and "not feeling great".... Physical Exam Physical Exam: alert. mildly uncomfortable abd: distended. +ttp. mild guarding. dry mm's. Results & Data Vital Signs (Past 12 Hours) Vital Signs Temp Pulse Resp BP Pulse Ox O2 Del Method 01/10/24 08:11 36.5 C 77 18 150/90 H 94 Room Air 01/10/24 01:35 Room Air PG Care Time/CCT Total # of Minutes Spent Total Time Spent with Patient: Total time spent is greater than 50% in coordination of care (as documented) at patient's floor/unit and/or counseling patient: Coding Level of Care Code 14596 SUB INP/OBS CARE 2/35MIN Diagnoses Small bowel obstruction K56.609 Nausea & vomiting R11.2
--- NOTE | 2024-01-10 14:09 | XRay Report ---
XR KUB/Abdomen 1 view CLINICAL HISTORY: sbo TECHNIQUE: 1 view of the abdomen was obtained. Comparison: Comparison is made to chest radiograph 01/09/2024 FINDINGS: Lung bases are unremarkable. The osseous structures are grossly unremarkable. A few scattered gas dis tended loops of bowel measure up to 34 mm. A moderate amount of stool is noted within the large bowel . IMPRESSION: A few gas-distended loops of small bowel are seen. Moderate stool burden remains. Findings may repres ent ileus versus partial small bowel obstruction. ACT 112: Negative or not required by law. Electronically signed by: Tj Casas M.D. 01/10/2024 2:07 PM
[2024-01-10] MEDS: metroNIDAZOLE 500 MG/100 ML BAG IV SCH (16:19)
--- NOTE | 2024-01-10 16:32 | Hospitalist Progress Note ---
Date of Service January 10, 2024 Assessment & Plan (1) Small bowel obstruction: Plan: Small bowel obstruction Suspected enteritis H/O appendectomy --CT ABD:Multiple abnormal fluid distended small bowel loops in the left inferior abdomen and midline pelvis, measuring 3.2 cm in size. There is no clear focal transition point; however, there is asymmetric decompression of the distal small bowel loops in the right lower quadrant. Findings may represent enteritis. However, a partial small bowel obstruction is difficult to exclude given this appearance. No pneumatosis or pneumoperitoneum. --Continue bowel rest, gentle IV fluids --Empirically started on Cipro, Flagyl --Continue NG tube --Appreciate surgery input --Will obtain stool studies if develops diarrhea --Pain control KUB today consistent with persistent partial small bowel obstruction If no improvement, low threshold for repeat CT abdomen Situational hypertension Monitor BP Pain control as above Prediabetes HbA1c 5.8 Mood disorder Continue paroxetine as able DVT Px: Lovenox SQ Code Status Full code Admission and Anticipated Discharge Date Admission Date: January 09, 2024 Subjective Patient is seen and examined at bedside Persistent abdominal pain No flatus, BM today Denies any nausea, vomiting, chest pain, dyspnea Review of Systems Review of Systems: All systems reviewed & are unremarkable except as noted in Subjective Physical Exam Physical Exam: Physical Exam: Vitals signs as noted above General Appearance:Obese, no apparent distress Head: normocephalic, Atraumatic,+NG tube Eyes: normal inspection, EOMI Neck: supple, Trachea midline Respiratory/Chest: Normal breath sounds, CTA, No accessory muscle use Cardiovascular: S1, S2, No murmur Abdomen/GI:Soft, generalized tender, mildly distended, Bowel sounds diminished Extremities/Musculoskeletal:normal inspection, no edema Neurologic/Psych:AAOX3, grossly no focal neurological deficits Skin: normal color, warm Results & Data Results & Data Vital Signs (Past 12 Hours) Vital Signs Temp Pulse Resp BP Pulse Ox O2 Del Method 01/10/24 14:53 36.6 C 89 18 144/90 H 95 Room Air 01/10/24 08:11 36.5 C 77 18 150/90 H 94 Room Air Laboratory Results Short CBC 01/10/24 Range/Units 06:24 WBC 8.11 (4.8-10.8) K/ul Hgb 14.0 (14.0-18.0) g/dl Hct 43.0 (42.0-52.0) % Plt Count 222 (130-400) K/uL BMP 01/10/24 06:24 Sodium 138 Potassium 3.8 Chloride 105 Carbon Dioxide 27 BUN 16 Creatinine 0.91 Glucose 90 Calcium 8.5 L
[2024-01-10] MEDS: CIPROFLOXACIN / D5W 400 MG/200 ML BAG IV SCH (17:30)
[2024-01-11 07:32] LABS: BUN Creatinine Ratio 16.3 (10-20); Calcium 8.6 mg/dl (8.6-10.3); Creatinine Clr Calc Pharmacy 120.8 ml/min; Est GFR (African American) 118.8 ml/min; Est GFR (Non-African American) 102.5 ml/min; Magnesium 1.8 mg/dl (1.7-2.4); Potassium 3.8 mmol/L (3.5-5.1)
--- NOTE | 2024-01-11 10:37 | Surgery Progress Note ---
Date of Service January 11, 2024 Assessment & Plan (1) Small bowel obstruction: Plan: pt reports not still not feeling that great however better than yesterday Still having abdominal pain more in LLQ Denies flatus NG tube with 900ml /24 h Started on empirical Cipro/Flagyl yesterday will continue WBC wnl VSS pt continues to "feel about the same". still with left sided abdominal pain. no bm. CT today shows resolution of SBO though he continues to have high ngt output. will check KUB tomorrow to be sure contrast reaches cecum. pt I suspect is becoming frustrated. if no progress soon may consider dx laparoscopy Admission and Anticipated Discharge Date Admission Date: January 09, 2024 Subjective pt reports not still not feeling that great however better than yesterday Still having abdominal pain more in LLQ Review of Systems Constitutional: no fever and no chills Respiratory: no dyspnea Cardiovascular: no chest pain Gastrointestinal: + abdominal pain and + bloating; no naus ea and no vomiting Musculoskeletal: no muscle weakness Physical Exam Physical Exam: alert oriented Constitutional: cooperative; no acute distress Respiratory: normal respiratory effort and able to speak in complete sentences; no respiratory distress Gastrointestinal (Abdomen): Inspection/Auscultation: + abdomen distended Percussion/Palpation: + abdomen tender and + abdomen firm Musculoskeletal: no cyanosis or clubbing, extremities motor strength 5/5 Results & Data Vital Signs (Past 12 Hours) Vital Signs Temp Pulse Resp BP Pulse Ox O2 Del Method 01/11/24 07:21 98.4 F 83 16 145/88 H 92 Room Air Results Complete Blood Count Results: RBC 5.07 M/uL (4.70-6.10) 01/10/24 WBC 8.11 K/ul (4.8-10.8) 01/10/24 Hgb 14.0 g/dl (14.0-18.0) 01/10/24 Hct 43.0 % (42.0-52.0) 01/10/24 Plt Count 222 K/uL (130-400) 01/10/24 Results CMP Results: Na 134 mmol/L (136-145) L 01/11/24 K 3.8 mmol/L (3.5-5.1) 01/11/24 Cl 98 mmol/L (98-107) 01/11/24 CO2 28 mmol/L (21-32) 01/11/24 Anion Gap 8 (3-11) 01/11/24 BUN 14 mg/dl (6-23) 01/11/24 Creatinine 0.86 mg/dl (0.6-1.4) 01/11/24 Estimated GFR ( Amer) 118.8 ml/min 01/11/24 Estimated GFR (Non-Af Amer) 102.5 ml/min 01/11/24 BUN/Creatinine Ratio 16.3 (10-20) 01/11/24 Glu 92 mg/dl (70-99(Fasting)) 01/11/24 Ca 8.6 mg/dl (8.6-10.3) 01/11/24 Total Bilirubin 0.4 mg/dl (0.2-1.0) 01/08/24 AST 16 U/L (13-39) 01/08/24 ALT 24 U/L (7-52) 01/08/24 Alkaline Phosphatase 57 U/L (34-104) 01/08/24 TP 7.8 gm/dl (6.0-8.3) 01/08/24 Albumin 4.7 gm/dl (3.4-5.0) 01/08/24 Globulin 3.1 gm/dl (2.5-4.0) 01/08/24 Albumin/Globulin Ratio 1.5 (0.9-2) 01/08/24 PG Care Time/CCT Total # of Minutes Spent Total Time Spent with Patient: Total time spent is greater than 50% in coordination of care (as documented) at patient's floor/unit and/or counseling patient: Coding Level of Care Code 09781 SUB INP/OBS CARE 25MIN Diagnoses Small bowel obstruction K56.609
[2024-01-11] MEDS: HYDROmorphone INJ 0.5 MG/0.5 ML SYR IV STA (10:46)
[2024-01-11] MEDS: OPTIRAY 320 500ml IV ONE (11:59)
--- NOTE | 2024-01-11 12:15 | CT Scan Report ---
CT SCAN OF THE ABDOMEN AND PELVIS WITH IV CONTRAST CLINICAL HISTORY: Generalized abdominal pain. COMPARISON STUDY: Abdominal CT dated 01/08/2024. TECHNIQUE: Following the IV administration of 87 cc of Optiray 320, CT scan of the abdomen and pelvi s is performed from the lung bases to the proximal femora. Images are reviewed in the axial, sagittal , and coronal planes. IV contrast was administered without complication. Oral contrast was utilized. A dose lowering technique was utilized adhering to the principles of ALARA. CT DOSE: 1436.86 mGy.cm FINDINGS: Lung bases: The heart is top normal in size and without pericardial effusion. There is trace left ple ural effusion and dependent atelectasis. Liver: The contrast-enhanced liver is top normal in size and demonstrates diffusely diminished attenu ation indicating steatosis. There is no intrahepatic biliary ductal dilatation. The hepatic veins and portal veins are patent. Gallbladder: Unremarkable. Spleen: Normal in size and attenuation. Pancreas: Mildly atrophic and grossly unremarkable. Adrenal glands: Unremarkable. Kidneys: The contrast enhanced kidneys are normal in size and without hydronephrosis. The kidneys enh ance symmetrically. A 1.6 cm cyst is noted in the right upper pole. Abdominal vasculature: The abdominal aorta is normal in course and caliber. Stomach and bowel: An enteric tube terminates in the gastric fundus. No bowel obstruction is identifi ed. Enteric contrast is seen in the stomach and proximal jejunum. The appendix is surgically absent. Peritoneum: No intraperitoneal free air is identified. There is trace free fluid in the lower abdomen and pelvis. There is a small fat-containing umbilical hernia. Lymphadenopathy: None. Pelvic viscera: The bladder, prostate, and seminal vesicles are normal as imaged. Skeletal structures: No lytic or blastic lesions are seen. Mild sclerotic changes noted in the sacroi liac joints and pubic symphysis. IMPRESSION: 1. No bowel obstruction is identified. The obstruction seen on 01/08/2024 appears resolved. 2. An enteric tube is in place. 3. Trace free fluid is seen in the lower abdomen and pelvis. 4. Hepatic steatosis. 5. Additional findings as above. ACT 112: Negative or not required by law. Electronically signed by: Nicola Arthur M.D. 01/11/2024 12:14 PM
[2024-01-11] MEDS: ACETAMINOPHEN 1,000 MG/100 ML VIAL IV PRN (12:19)
[2024-01-11] MEDS: KETOROLAC 30 MG/ML VIAL IV ONE (14:56)
--- NOTE | 2024-01-11 16:24 | Hospitalist Progress Note ---
Date of Service January 11, 2024 Assessment & Plan (1) Small bowel obstruction: Plan: Small bowel obstruction Suspected enteritis H/O appendectomy --CT ABD:Multiple abnormal fluid distended small bowel loops in the left inferior abdomen and midline pelvis, measuring 3.2 cm in size. There is no clear focal transition point; however, there is asymmetric decompression of the distal small bowel loops in the right lower quadrant. Findings may represent enteritis. However, a partial small bowel obstruction is difficult to exclude given this appearance. No pneumatosis or pneumoperitoneum. --Repeat CT BAD:No bowel obstruction is identified. The obstruction seen on 01/08/2024 appears resolved. An enteric tube is in place. Trace free fluid is seen in the lower abdomen and pelvis. Hepatic steatosis. --Continue bowel rest, gentle IV fluids --Empirically started on Cipro, Flagyl --Continue NG tube --Appreciate surgery input --Will obtain stool studies if develops diarrhea --Pain control Still has high NG output Repeat CT abdomen showed resolution of obstruction, patient had no return of bowel movement. If no improvement, surgery plans for diagnostic laparoscopy Will obtain KUB tomorrow Situational hypertension Monitor BP Pain control as above Prediabetes HbA1c 5.8 Mood disorder Continue paroxetine as able DVT Px: Lovenox SQ Code Status Full code Admission and Anticipated Discharge Date Admission Date: January 09, 2024 Subjective Patient is seen and examined at bedside Nausea is with the use of oral contrast this morning Discussed with surgery today Abdominal pain is controlled No flatus, bowel movement today Denies any chest pain, dyspnea Plan for repeat CT abdomen today Review of Systems Review of Systems: All systems reviewed & are unremarkable except as noted in Subjective Physical Exam Physical Exam: Physical Exam: Vitals signs as noted above General Appearance:Obese, no apparent distress Head: normocephalic, Atraumatic,+NG tube Eyes: normal inspection, EOMI Neck: supple, Trachea midline Respiratory/Chest: Normal breath sounds, CTA, No accessory muscle use Cardiovascular: S1, S2, No murmur Abdomen/GI:Soft, generalized tender, mildly distended, Bowel sounds diminished Extremities/Musculoskeletal:normal inspection, no edema Neurologic/Psych:AAOX3, grossly no focal neurological deficits Skin: normal color, warm Results & Data Results & Data Vital Signs (Past 12 Hours) Vital Signs Temp Pulse Resp BP Pulse Ox O2 Del Method 02/13/24 15:49 36.6 C 74 16 139/89 93 Room Air 01/11/24 07:21 36.9 C 83 16 145/88 H 92 Room Air Laboratory Results BMP 01/11/24 06:25 Sodium 134 L Potassium 3.8 Chloride 98 Carbon Dioxide 28 BUN 14 Creatinine 0.86 Glucose 92 Calcium 8.6
[2024-01-12 07:05] LABS: Hematocrit (blood only) 42.1 % (42.0-52.0); Hemoglobin 14.1 g/dl (14.0-18.0); Mean Corpuscular Hemoglobin 27.7 pg (25.0-34.0); Mean Corpuscular Hgb Conc 33.5 g/dL (32.0-36.0); Mean Corpuscular Volume 82.7 fL (80.0-100.0); Platelet Count 262 K/uL (130-400); RDW Coefficient of Variation 12.7 % (11.5-14.5); RDW Standard Deviation 38.1 fL (36.4-46.3); Red Blood Count 5.09 M/uL (4.70-6.10); White Blood Count 7.84 K/ul (4.8-10.8)
[2024-01-12] MEDS: PROMETHAZINE HCL 12.5 MG in SODIUM CHLORIDE 0.9% 50 ML IV PRN (07:53)
[2024-01-12 08:15] LABS: Calcium 8.7 mg/dl (8.6-10.3); Potassium 3.6 mmol/L (3.5-5.1)
[2024-01-12 08:21] LABS: BUN Creatinine Ratio 14.6 (10-20); Creatinine Clr Calc Pharmacy 126.7 ml/min; Est GFR (African American) 121.2 ml/min; Est GFR (Non-African American) 104.6 ml/min
--- NOTE | 2024-01-12 08:46 | Surgery Progress Note ---
Date of Service January 12, 2024 Assessment & Plan (1) Small bowel obstruction: Plan: pt reports not still not feeling well Still having abdominal pain Denies flatus /BM NG tube with 800/1900 12/24h continue cipro/flagyl WBC wnl VSS Pt underwent KUB this AM not read yet However given patients continuation of abdominal pain/distention we will schedule him for a diagnostic laparoscopy surgery as needed, this after afternoon with Dr. Callahan. as above. pt not any better. still with pain, distension, no flatus or bm. not hungry. frustrated still with high ( 1600 cc) bilious ngt output discussed options/risks. discussed bleeding/infection/injury to an organ, dvt,pe etc... questions answered...will proceed today with dx laparoscopy, surgery as needed. pt agrees. Admission and Anticipated Discharge Date Admission Date: January 09, 2024 Subjective Pt reports not feeling well Denies flatus, BM NG tube still draining Review of Systems Constitutional: no fever and no chills Respiratory: no dyspnea Cardiovascular: no chest pain Gastrointestinal: + abdominal pain and + bloating; no naus ea (has NG tube ) and no vomiting Musculoskeletal: no muscle weakness Physical Exam Physical Exam: alert oriented Constitutional: cooperative; no acute distress Respiratory: normal respiratory effort and able to speak in complete sentences; no respiratory distress Gastrointestinal (Abdomen): Inspection/Auscultation: + abdomen distended Percussion/Palpation: + abdomen tender and + abdomen firm Musculoskeletal: no cyanosis or clubbing, extremities motor strength 5/5 Results & Data Vital Signs (Past 12 Hours) Vital Signs Temp Pulse Resp BP Pulse Ox O2 Del Method 01/12/24 07:04 98.2 F 78 16 139/89 94 Room Air Results Complete Blood Count Results: RBC 5.09 M/uL (4.70-6.10) 01/12/24 WBC 7.84 K/ul (4.8-10.8) 01/12/24 Hgb 14.1 g/dl (14.0-18.0) 01/12/24 Hct 42.1 % (42.0-52.0) 01/12/24 Plt Count 262 K/uL (130-400) 01/12/24 Results CMP Results: Na 136 mmol/L (136-145) 01/12/24 K 3.6 mmol/L (3.5-5.1) 01/12/24 Cl 98 mmol/L (98-107) 01/12/24 CO2 29 mmol/L (21-32) 01/12/24 Anion Gap 9 (3-11) 01/12/24 BUN 12 mg/dl (6-23) 01/12/24 Creatinine 0.82 mg/dl (0.6-1.4) 01/12/24 Estimated GFR ( Amer) 121.2 ml/min 01/12/24 Estimated GFR (Non-Af Amer) 104.6 ml/min 01/12/24 BUN/Creatinine Ratio 14.6 (10-20) 01/12/24 Glu 80 mg/dl (70-99(Fasting)) 01/12/24 Ca 8.7 mg/dl (8.6-10.3) 01/12/24 Total Bilirubin 0.4 mg/dl (0.2-1.0) 01/08/24 AST 16 U/L (13-39) 01/08/24 ALT 24 U/L (7-52) 01/08/24 Alkaline Phosphatase 57 U/L (34-104) 01/08/24 TP 7.8 gm/dl (6.0-8.3) 01/08/24 Albumin 4.7 gm/dl (3.4-5.0) 01/08/24 Globulin 3.1 gm/dl (2.5-4.0) 01/08/24 Albumin/Globulin Ratio 1.5 (0.9-2) 01/08/24 PG Care Time/CCT Total # of Minutes Spent Total Time Spent with Patient: Total time spent is greater than 50% in coordination of care (as documented) at patient's floor/unit and/or counseling patient: Coding Level of Care Code 21403 SUB INP/OBS CARE 2/35MIN Diagnoses Small bowel obstruction K56.609
--- NOTE | 2024-01-12 09:32 | Anesthesiology Consultation ---
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 History Surgery Operation Date: 01/12/24 08:00 Proposed Procedures p Diagnostic Laparoscopy, Surgery As Needed - Donavan Callahan DO Height/Weight Height: 5 ft 8 in Weight: 100.69 kg Allergies Allergy/AdvReac Type Severity Reaction Status Date / Time Penicillins Allergy Unknown Rash Verified 01/08/24 22:50 Medications Home Medications Medication Instructions Recorded Confirmed Last Taken paroxetine HCl 40 mg tablet (Paxil) 40 mg PO QPM 01/08/24 01/08/24 01/08/24 Active Medications Generic Name Dose Route Start Last Admin Trade Name Freq PRN Reason Stop Dose Admin Enoxaparin Sodium 40 mg 01/09/24 09:00 01/12/24 07:52 Enoxaparin Inj 40 Mg/0.4 Ml Syr SQ 02/08/24 08:59 Not Given QAM THALIA Hydromorphone HCl 1 mg 01/10/24 08:43 01/12/24 09:05 Hydromorphone Inj 1 Mg/Ml Syringe IV 01/24/24 08:42 1 mg Q3H PRN Administration Pain Lorazepam 0.5 mg/ Syringe 0.5 mls @ 2 mls/min 01/09/24 00:59 01/09/24 21:28 IV 02/08/24 00:58 2 mls/min Q4H PRN Administration Anxiety/Agitation Promethazine HCl 12.5 mg/ 50.5 mls @ 202 mls/hr 01/09/24 01:24 01/12/24 08:16 Sodium Chloride IV 02/08/24 01:23 Infused Q6H PRN Infusion Nausea And Vomiting Lactated Ringer's 1,000 mls @ 150 mls/hr 01/09/24 18:00 01/12/24 06:05 Lr IV 02/08/24 17:59 150 mls/hr .Q6H40M THALIA Administration Ciprofloxacin 400 mg in 200 mls @ 100 mls/hr 01/10/24 15:00 01/12/24 05:36 Cipro / D5w IV 01/20/24 14:59 Infused Q12H THALIA Infusion Protocol Metronidazole 500 mg in 100 mls @ 100 mls/hr 01/10/24 15:00 01/12/24 03:06 Flagyl IV 01/20/24 14:59 Infused Q12H THALIA Infusion Protocol Paroxetine HCl 40 mg 01/09/24 21:00 01/11/24 20:16 Paroxetine Hcl 20 Mg Tab PO 02/08/24 20:59 40 mg QPM THALIA Administration Past Medical History Medical History No significant past medical history Past Family History Family History Other Family history non-contributory Past Surgical History Surgical History History of shoulder surgery History of appendectomy Social History Smoking Status: Never smoker Do You Dip or Chew Tobacco: No (in the past) Hx Alcohol Use: No alcohol intake frequency: other Hx Substance Use: No substance use type: does not use Physical Exam Vital Signs Last Vital Signs Temp 98.2 F 01/12/24 07:04 Pulse 78 01/12/24 07:04 Resp 16 01/12/24 07:04 BP 139/89 01/12/24 07:04 Pulse Ox 94 01/12/24 07:04 O2 Del Method Room Air 01/12/24 07:04 Testing Laboratory Results 01/12/24 06:13 01/12/24 06:13 Hemoglobin A1c 5.8 % (4.5-5.6) H 01/08/24 22:18 Urine Color Yellow 01/08/24 23:15 Urine Appearance Clear (Clear) 01/08/24 23:15 Urine pH 7.5 (4.5-7.5) 01/08/24 23:15 Ur Specific [place] 1.030 (1.000-1.030) 01/08/24 23:15 Urine Protein Trace (Negative) H 01/08/24 23:15 Urine Glucose (UA) Negative (Negative) 01/08/24 23:15 Urine Ketones Trace (Negative) H 01/08/24 23:15 Urine Nitrite Negative (Negative) 01/08/24 23:15 Ur Leukocyte Esterase Negative (Negative) 01/08/24 23:15 Urine WBC (Auto) 0 /hpf (0-5) 01/08/24 23:15 Urine RBC (Auto) 5-10 /hpf (0-4) H 01/08/24 23:15 U Hyaline Cast (Auto) 0 /lpf (0-5) 01/08/24 23:15 U Epithel Cells (Auto) 0-5 /lpf (0-5) 01/08/24 23:15 Urine Bacteria (Auto) Negative (Negative) 01/08/24 23:15 Electrocardiogram Date: 01/08/24 Findings: + NSR @ (93 bpm)
--- NOTE | 2024-01-12 10:17 | XRay Report ---
KUB HISTORY: Small bowel obstruction. Follow-up. COMPARISON: Abdomen and pelvis CT 01/11/2024. FINDINGS: The bowel gas pattern is unremarkable. There are no dilated loops of small bowel to suggest an obstruction. No renal calculi. No ureteral calculi. Calcifications in the deep pelvis likely rep resent phleboliths. Nasogastric tube is seen within the proximal stomach. No pneumoperitoneum or pneu matosis. IMPRESSION: 1. Nonobstructive bowel gas pattern. 2. Nasogastric tube terminates in the proximal stomach. ACT 112: Negative or not required by law. Electronically signed by: Caleb Pickard M.D. 01/12/2024 10:15 AM
[2024-01-12] MEDS ORDERED: ePHEDrine sulfate 50 MG/ML AMP IV PRN (12:08)
[2024-01-12] MEDS ORDERED: ONDANSETRON INJ 2 MG/ML 2 ML VIAL IV PRN (12:08)
[2024-01-12] MEDS ORDERED: fentaNYL citrate PF 100 MCG/2 ML VIAL IV PRN (12:08)
[2024-01-12] MEDS ORDERED: ATROPINE SULFATE 0.1 MG/ML 10ML SYR IV PRN (12:08)
[2024-01-12] MEDS ORDERED: HYDROmorphone INJ 1 MG/ML SYRINGE IV PRN (12:08)
[2024-01-12] MEDS ORDERED: ONDANSETRON INJ 2 MG/ML 2 ML VIAL ONE (12:21)
[2024-01-12] MEDS ORDERED: DEXAMETHASONE SOD INJ 4 MG/ML VIAL ONE (12:21)
[2024-01-12] MEDS ORDERED: LIDOCAINE 2% 2 ML VIAL/AMP(20MG/ML) INFIL ONE (12:21)
[2024-01-12] MEDS ORDERED: PROPOFOL IV EMULSION 10 MG/ML 20 ML VIAL IV ONE (12:21)
[2024-01-12] MEDS ORDERED: MIDAZOLAM HCL 1 MG/ML 2ML VIAL ONE (12:22)
[2024-01-12] MEDS ORDERED: fentaNYL citrate PF 100 MCG/2 ML VIAL ONE (12:22)
[2024-01-12] MEDS ORDERED: ROCURONIUM BROMIDE 10 MG/ML 5 ML VIAL IV ONE (12:23)
[2024-01-12] MEDS ORDERED: LARYING-O-JET KIT (LTA) ONE (12:23)
[2024-01-12] MEDS ORDERED: SUCCINYLCHOLINE CHLORIDE 20 MG/ML 10 ML VIAL IV ONE (12:39)
--- NOTE | 2024-01-12 12:51 | Hospitalist Progress Note ---
Date of Service January 12, 2024 Assessment & Plan (1) Small bowel obstruction: Plan: Small bowel obstruction Suspected enteritis H/O appendectomy --CT ABD:Multiple abnormal fluid distended small bowel loops in the left inferior abdomen and midline pelvis, measuring 3.2 cm in size. There is no clear focal transition point; however, there is asymmetric decompression of the distal small bowel loops in the right lower quadrant. Findings may represent enteritis. However, a partial small bowel obstruction is difficult to exclude given this appearance. No pneumatosis or pneumoperitoneum. --Repeat CT BAD:No bowel obstruction is identified. The obstruction seen on 01/08/2024 appears resolved. An enteric tube is in place. Trace free fluid is seen in the lower abdomen and pelvis. Hepatic steatosis. --Continue bowel rest, gentle IV fluids --Empirically started on Cipro, Flagyl --Continue NG tube-has been draining a lot --Appreciate surgery input --Stool for C. difficile has been --Pain control Still has high NG output-and it has been draining a lot Repeat CT abdomen showed resolution of obstruction, patient had no return of bowel movement. KUB did show improvement but the symptoms are persisting and quite disabling Was seen by surgeon this morning and he will be taken to or sometime this afternoon for possible lysis of adhesions Situational hypertension Monitor BP Pain control as above Will monitor blood pressure Prediabetes HbA1c 5.8 Mood disorder Continue paroxetine as able DVT Px: Lovenox SQ Code Status Full code Admission and Anticipated Discharge Date Admission Date: January 09, 2024 Subjective 01/12/2024 The patient was seen and examined in medical floor in presence of the family members He has not been feeling much better Still has abdominal distention and pain NG tube has been draining more than 1000 mL over last 24 hours KUB did show some improvement but clinically he is not any better He will be taken to the OR this afternoon Review of Systems Review of Systems: All systems reviewed and are unremarkable except as noted below Gastrointestinal: Abdominal distention, pain and nausea. Bowel has not moved and no flatus Physical Exam Physical Exam: Lying in bed in discomfort secondary to abdominal pain Constitutional: well developed, well nourished, + ill appearing and + obese Eyes: PERRL, conjunctivae normal, anicteric sclerae ENMT: external ear and nose normal, oropharynx normal Neck: trachea midline, no thyromegaly Respiratory: no respiratory distress Auscultation: lungs clear to auscultation bilaterally Cardiovascular: Rate/Rhythm: regular rate and regular rhythm; not tachycardic Heart Sounds: normal S1 and normal S2; no murmur Extremities: no edema Gastrointestinal (Abdomen): Inspection/Auscultation: + abdomen distended; + abnormal bowel sounds (Decreased bowel sound) Percussion/Palpation: + abdomen tender (All over) and abdomen soft Musculoskeletal: No acute arthritis involving any of the joint Neurologic: normal touch/pain/proprioception and moves all extremities; no focal motor deficits Lymphatic: no cervical or axillary lymphadenopathy Results & Data Results & Data Vital Signs (Past 12 Hours) Vital Signs Temp Pulse Resp BP Pulse Ox O2 Del Method 01/12/24 12:18 36.4 C L 81 20 170/104 H 97 Room Air 01/12/24 07:04 36.8 C 78 16 139/89 94 Room Air Laboratory Results Short CBC 01/12/24 Range/Units 06:13 WBC 7.84 (4.8-10.8) K/ul Hgb 14.1 (14.0-18.0) g/dl Hct 42.1 (42.0-52.0) % Plt Count 262 (130-400) K/uL BMP 01/12/24 06:13 Sodium 136 Potassium 3.6 Chloride 98 Carbon Dioxide 29 BUN 12 Creatinine 0.82 Glucose 80 Calcium 8.7 Medications Administered Current Inpatient Medications Atropine Sulfate (Atropine Sulfate 0.1 Mg/Ml 10ml Syr) 0.5 mg IV Q1M PRN PRN Reason: PACU Use-HR<40 &/or Bradycardi Stop: 01/12/24 20:08 Enoxaparin Sodium (Enoxaparin Inj 40 Mg/0.4 Ml Syr) 40 mg SQ QAM THALIA Stop: 02/08/24 08:59 Last Admin: 01/12/24 07:52 Dose: Not Given Ephedrine Sulfate (Ephedrine Sulfate 50 Mg/Ml Amp) 5 mg IV Q5M PRN PRN Reason: PACU Use Only-SBP<90 mmHg Stop: 01/12/24 20:08 Fentanyl Citrate (Fentanyl Citrate Pf 100 Mcg/2 Ml Vial) 50 mcg IV Q5M PRN PRN Reason: PACU Use Only-Pain Stop: 01/12/24 20:08 Hydromorphone HCl (Hydromorphone Inj 1 Mg/Ml Syringe) 1 mg IV Q3H PRN PRN Reason: Pain Stop: 01/24/24 08:42 Last Admin: 01/12/24 12:39 Dose: 1 mg Hydromorphone HCl (Hydromorphone Inj 1 Mg/Ml Syringe) 0.25 mg IV Q5M PRN PRN Reason: PACU Use Only-Pain Stop: 01/12/24 20:08 Lorazepam 0.5 mg/ Syringe 0.5 mls @ 2 mls/min IV Q4H PRN PRN Reason: Anxiety/Agitation Stop: 02/08/24 00:58 Last Admin: 01/09/24 21:28 Dose: 2 mls/min Promethazine HCl 12.5 mg/ (Sodium Chloride) 50.5 mls @ 202 mls/hr IV Q6H PRN PRN Reason: Nausea And Vomiting Stop: 02/08/24 01:23 Last Infusion: 01/12/24 08:16 Dose: Infused Lactated Ringer's (Lr) 1,000 mls @ 150 mls/hr IV .Q6H40M THALIA Stop: 02/08/24 17:59 Last Admin: 01/12/24 06:05 Dose: 150 mls/hr Ciprofloxacin (Cipro / D5w) 400 mg in 200 mls @ 100 mls/hr IV Q12H THALIA; Protocol Stop: 01/20/24 14:59 Last Infusion: 01/12/24 05:36 Dose: Infused Metronidazole (Flagyl) 500 mg in 100 mls @ 100 mls/hr IV Q12H THALIA; Protocol Stop: 01/20/24 14:59 Last Infusion: 01/12/24 03:06 Dose: Infused Ondansetron HCl (Ondansetron Inj 2 Mg/Ml 2 Ml Vial) 4 mg IV ONCE PRN PRN Reason: PACU Use Only-Nausea/Vomiting Stop: 01/12/24 20:08 Paroxetine HCl (Paroxetine Hcl 20 Mg Tab) 40 mg PO QPM THALIA Stop: 02/08/24 20:59 Last Admin: 01/11/24 20:16 Dose: 40 mg
[2024-01-12] MEDS ORDERED: SUGAMMADEX SODIUM 200 MG/2 ML VIAL IV ONE (13:34)
[2024-01-12] MEDS ORDERED: PHENYLEPHRINE 100MCG/ML 10ML SYR IV ONE (13:35)
[2024-01-12] MEDS: BUPIVACAINE/EPINEPHRINE 0.5% MPF 1:200,000 30 ML VIAL ONE (14:21)
--- NOTE | 2024-01-12 14:23 | Operative Report ---
PG Post Operative Report Pre & Post Diagnosis Operation Date: 01/12/24 08:00 Pre-Op Diagnosis: Small bowel obstruction and abdominal pain Post-Op Diagnosis: Acute cholecystitis I identified the patient and participated in the time-out.: Yes Procedure Operation Date: 01/12/24 08:00 Actual Procedures p Diagnostic Laparoscopy, Laparoscopic Cholecystectomy(Not Applicable) - Donavan Callahan DO Surgeon Donavan Callahan DO Unarmed Security Guard cate Cooper Estimated Blood Loss 10 Findings Consistent with Post-Op Diagnosis Specimens gallbladder Description of Procedure After informed consent was obtained the patient was taken to the operating room and placed in supine position. After successful intubation the abdomen was shaved and sterilely prepped and draped in usual fashion. An upper midline incision was initially made with an 11 blade scalpel. This was carried down through soft tissue using cautery. Anterior fascia was opened using cautery and two #0 Vicryl stay sutures were placed. Peritoneum was elevated using hemostats and incised under direct vision using a Metzenbaum scissor. Finger sweep was performed. A 12 mm Vaca trocar was placed and the abdomen was insufflated to 18 mmHg. Laparoscope was inserted and the abdomen examined 360 degrees. I began by placing a left upper quadrant 5 mm port in the left mid abdominal 5 mm. Initially there were no visible abnormalities. I placed him in Trendelenburg position and began looking in the lower abdomen. There was no dilated small bowel. There was some benign-appearing sigmoid diverticulosis but no real evidence of diverticulitis. I began at the cecum and ran the small bowel from the terminal ileum to the ligament of Treitz. Stomach liver and all peritoneal surfaces appeared normal as well. However I placed the patient in a reverse Trendelenburg position and pulled the omentum medially and there was evidence of him having acute cholecystitis. The gallbladder was inflamed with some fat wrapping. I had to place 2 additional right upper quadrant 5 mm trocars. I took the adhesions down around the neck of the gallbladder. The cystic duct was skeletonized clipped and divided. In similar fashion the cystic artery was identified skeletonized clipped and divided. Gallbladder was removed from the gallbladder fossa using cautery. There was a small hole made in the gallbladder during this process releasing a small amount of bile in the right upper quadrant which was immediately suctioned and irrigated out. After removing the gallbladder it was placed into an Endo Catch bag. The bag was removed from the camera port site. We thoroughly irrigated the right upper quadrant. At the end of the procedure there was adequate hemostasis and no evidence of any bile leaks. No other abnormalities were seen. The trocars were all removed and the abdomen desufflated. Fascia the camera port was closed using 0 Vicryl in [id number] fashion. All wounds were thoroughly irrigated and closed using 4-0 Monocryl. Marcaine with epinephrine was injected around for postoperative analgesia and skin glue used as a dressing. Patient was awakened extubated and transferred to recovery in stable condition. My physician academic support assistant was present through the entire case and was instrumental in providing exposure throughout my surgery including during the cholecystectomy, assisting with wound closure and dressing placement. I attest to the content of the Intraoperative Record and any orders documented therein. Any exceptions are noted below.
[2024-01-12] MEDS ORDERED: HYDROmorphone INJ 0.5 MG/0.5 ML SYR IV PRN (14:36)
--- NOTE | 2024-01-12 14:47 | Anesthesiology Progress Note ---
Date of Service January 12, 2024 Anesthesia Post Procedure Vital Signs Vital Signs: Temp Pulse Resp BP BP Pulse Ox O2 Del Method 01/12/24 12:18 36.4 C L 81 20 170/104 H 97 Room Air 01/12/24 07:04 36.8 C 78 16 139/89 94 Room Air 01/11/24 20:22 36.6 C 72 16 154/82 H 95 Room Air 01/11/24 15:49 36.6 C 74 16 139/89 93 Room Air Pain Intensity Abdomen: Pain Intensity: 4 Transfer of Care Handoff Completed per policy Notes Mental Status: alert / awake / arousable and participated in evaluation Patient Amnestic to Procedure: Yes Nausea / Vomiting: adequately controlled Pain: adequately controlled Airway Patency, RR, SpO2: stable & adequate BP & HR: stable & adequate Hydration State: stable & adequate Anesthetic Complications: no major complications apparent and Pt Satisfied with anesthetic care
[2024-01-12] MEDS: HYDROmorphone INJ 1 MG/ML SYRINGE IV PRN (17:01)
[2024-01-13 08:34] LABS: Basophils # (auto) 0.01 K/uL (0.00-0.20); Basophils % (auto) 0.1 %; Hematocrit (blood only) 40.6 % (42.0-52.0); Hemoglobin 13.5 g/dl (14.0-18.0); Immature Granulocytes # (auto) 0.06 K/uL (0.01-0.20); Immature Granulocytes % (auto) 0.6 %; Lymphocytes # (auto) 1.05 K/uL (1.20-3.40); Mean Corpuscular Hemoglobin 28.1 pg (25.0-34.0); Mean Corpuscular Hgb Conc 33.3 g/dL (32.0-36.0); Mean Corpuscular Volume 84.4 fL (80.0-100.0); Mean Platelet Volume 10.2 fL (9.4-12.4); Monocytes # (auto) 0.87 K/uL (0.11-0.59); Monocytes % (auto) 8.3 %; Neutrophils # (auto) 8.51 K/uL (1.40-6.50); Platelet Count 264 K/uL (130-400); RDW Coefficient of Variation 12.7 % (11.5-14.5); RDW Standard Deviation 38.8 fL (36.4-46.3); Red Blood Count 4.81 M/uL (4.70-6.10)
--- NOTE | 2024-01-13 08:37 | Surgery Progress Note ---
Date of Service January 13, 2024 Assessment & Plan (1) Hx laparoscopic cholecystectomy: Plan: pod 1 doing well advance diet. ok for d/c from my standpoint. instructions given Admission and Anticipated Discharge Date Admission Date: January 09, 2024 Subjective pt seen. feeling better. obie clears. Physical Exam Physical Exam: alert. nad abd: soft. expected ttp. incisions look good Results & Data Vital Signs (Past 12 Hours) Vital Signs Temp Pulse Resp BP BP Pulse Ox O2 Del Method 01/13/24 07:25 36.6 C 81 16 143/87 H 93 Room Air 01/13/24 06:15 36.8 C 79 18 148/80 H 94 Room Air 01/13/24 02:28 36.6 C 86 16 129/79 90 Room Air 01/12/24 22:23 36.8 C 96 H 16 117/78 93 Room Air 01/12/24 21:00 Room Air PG Care Time/CCT Total # of Minutes Spent Total Time Spent with Patient: Total time spent is greater than 50% in coordination of care (as documented) at patient's floor/unit and/or counseling patient: Coding Level of Care Code 51252 Post Operative Follow-Up Diagnoses Hx laparoscopic cholecystectomy Z90.49
[2024-01-13 08:48] LABS: BUN Creatinine Ratio 12.2 (10-20); Calcium 8.9 mg/dl (8.6-10.3); Creatinine Clr Calc Pharmacy 115.4 ml/min; Est GFR (African American) 116.6 ml/min; Est GFR (Non-African American) 100.6 ml/min; Phosphorus 2.5 mg/dl (2.5-4.9); Potassium 4.3 mmol/L (3.5-5.1)
[2024-01-13] MEDS: oxyCODONE HCL IR 5 MG TAB (IMMEDIATE RELEASE) PO PRN (11:39)
--- NOTE | 2024-01-13 11:57 | Hospitalist Progress Note ---
Date of Service January 13, 2024 Assessment & Plan (1) Small bowel obstruction: Plan: Small bowel obstruction Suspected enteritis H/O appendectomy --CT ABD:Multiple abnormal fluid distended small bowel loops in the left inferior abdomen and midline pelvis, measuring 3.2 cm in size. There is no clear focal transition point; however, there is asymmetric decompression of the distal small bowel loops in the right lower quadrant. Findings may represent enteritis. However, a partial small bowel obstruction is difficult to exclude given this appearance. No pneumatosis or pneumoperitoneum. --Repeat CT BAD:No bowel obstruction is identified. The obstruction seen on 01/08/2024 appears resolved. An enteric tube is in place. Trace free fluid is seen in the lower abdomen and pelvis. Hepatic steatosis. --Continue bowel rest, gentle IV fluids --Empirically started on Cipro, Flagyl --Continue NG tube-has been draining a lot --Appreciate surgery input --Stool for C. difficile has been --Pain control Still has high NG output-and it has been draining a lot Repeat CT abdomen showed resolution of obstruction, patient had no return of bowel movement. KUB did show improvement but the symptoms are persisting and quite disabling Was seen by surgeon this morning and he will be taken to or sometime this afternoon for possible lysis of adhesions Noted to acute cholecystitis as below and he is a status post laparoscopic cholecystectomy on 01/12/2024 Acute cholecystitis He was not improving with current management including suction, sedation antibiotic and pain medications He is imaging studies were looking better He underwent laparoscopic evaluation and noted to have acute cholecystitis S/p cholecystectomy on 01/12/2024 He has been feeling much better following the procedure Likely to be discharged this afternoon Situational hypertension Monitor BP Pain control as above Will monitor blood pressure Prediabetes HbA1c 5.8 Mood disorder Continue paroxetine as able DVT Px: Lovenox SQ Code Status Full code (2) Acute cholecystitis: Admission and Anticipated Discharge Date Admission Date: January 09, 2024 Subjective 01/12/2024 The patient was seen and examined in medical floor in presence of the family members He has not been feeling much better Still has abdominal distention and pain NG tube has been draining more than 1000 mL over last 24 hours KUB did show some improvement but clinically he is not any better He will be taken to the OR this afternoon 01/13/2024 The patient was seen and examined in medical He has been feeling much better but still has abdominal discomfort and pain Has been tolerating clears and diet will be advanced during lunch He has been passing gas and has been ambulating without any difficulty If he can tolerate diet without any other issues he will be discharged home this afternoon Review of Systems Review of Systems: All systems reviewed and are unremarkable except as noted below Physical Exam Physical Exam: Lying in bed in discomfort secondary to abdominal pain Constitutional: well developed, well nourished, + ill appearing and + obese Eyes: PERRL, conjunctivae normal, anicteric sclerae ENMT: external ear and nose normal, oropharynx normal Neck: trachea midline, no thyromegaly Respiratory: no respiratory distress Auscultation: lungs clear to auscultation bilaterally Cardiovascular: Rate/Rhythm: regular rate and regular rhythm; not tachycardic Heart Sounds: normal S1 and normal S2; no murmur Extremities: no edema Gastrointestinal (Abdomen): Inspection/Auscultation: + abdomen distended; + a bnormal bowel sounds (Decreased bowel sound) Percussion/Palpation: + abdomen tender (All over) and abdomen soft Musculoskeletal: No acute arthritis involving the joint Neurologic: normal touch/pain/proprioception and moves all extremities; no focal motor deficits Lymphatic: no cervical or axillary lymphadenopathy Results & Data Results & Data Vital Signs (Past 12 Hours) Vital Signs Temp Pulse Pulse Resp BP BP Pulse Ox 01/13/24 11:31 36.8 C 95 H 16 125/76 94 01/13/24 07:25 36.6 C 81 16 143/87 H 93 01/13/24 06:15 36.8 C 79 18 148/80 H 94 01/13/24 02:28 36.6 C 86 16 129/79 90 O2 Del Method 01/13/24 11:31 Room Air 01/13/24 07:25 Room Air 01/13/24 06:15 Room Air 01/13/24 02:28 Room Air Laboratory Results Short CBC 01/13/24 Range/Units 07:31 WBC 10.50 (4.8-10.8) K/ul Hgb 13.5 L (14.0-18.0) g/dl Hct 40.6 L (42.0-52.0) % Plt Count 264 (130-400) K/uL BMP 01/13/24 07:31 Sodium 139 Potassium 4.3 Chloride 102 Carbon Dioxide 30 BUN 11 Creatinine 0.90 Glucose 127 H Calcium 8.9 Medications Administered Current Inpatient Medications Hydromorphone HCl (Hydromorphone Inj 0.5 Mg/0.5 Ml Syr) 0.5 mg IV Q3H PRN PRN Reason: Moderate Pain (Scale 4, 5, 6) Stop: 01/26/24 14:35 Hydromorphone HCl (Hydromorphone Inj 1 Mg/Ml Syringe) 1 mg IV Q3H PRN PRN Reason: Severe Pain (Scale 7, 8, 9,10) Stop: 01/26/24 14:35 Last Admin: 01/13/24 07:45 Dose: 1 mg Lorazepam 0.5 mg/ Syringe 0.5 mls @ 2 mls/min IV Q4H PRN PRN Reason: Anxiety/Agitation Stop: 02/08/24 00:58 Last Admin: 01/09/24 21:28 Dose: 2 mls/min Promethazine HCl 12.5 mg/ (Sodium Chloride) 50.5 mls @ 202 mls/hr IV Q6H PRN PRN Reason: Nausea And Vomiting Stop: 02/08/24 01:23 Last Infusion: 01/12/24 08:16 Dose: Infused Lactated Ringer's (Lr) 1,000 mls @ 150 mls/hr IV .Q6H40M THALIA Stop: 02/08/24 17:59 Last Admin: 01/13/24 05:07 Dose: 150 mls/hr Ciprofloxacin (Cipro / D5w) 400 mg in 200 mls @ 100 mls/hr IV Q12H THALIA; Protocol Stop: 01/20/24 14:59 Last Infusion: 01/13/24 05:07 Dose: Infused Metronidazole (Flagyl) 500 mg in 100 mls @ 100 mls/hr IV Q12H THALIA; Protocol Stop: 01/20/24 14:59 Last Infusion: 01/13/24 06:10 Dose: Infused Oxycodone HCl (Oxycodone Hcl Ir 5 Mg Tab (Immediate Release)) 5 mg PO Q6H PRN PRN Reason: Pain Stop: 01/27/24 11:26 Last Admin: 01/13/24 11:39 Dose: 5 mg Paroxetine HCl (Paroxetine Hcl 20 Mg Tab) 40 mg PO QPM THALIA Stop: 02/08/24 20:59 Last Admin: 01/12/24 20:48 Dose: 40 mg
--- NOTE | 2024-01-13 15:56 | Discharge Summary ---
Date of Service January 13, 2024 Admission HPI Per Admitting Provider History obtained from patient and records. Medical history significant for anxiety/mood disorder, diverticulitis. Last confinement October 2019 for acute diverticulitis resolved with medical management. 1 day history of diffuse abdominal pain associated with nausea, bilious emesis. Good bowel movements. Denies chest pain, SOB, fever, chills. NGT inserted at the ER for partial SBO. Medical History as above Surgical History : Appendectomy, knee surgeries, shoulder surgery Family History : mood disorder Personal/Social history : Non-smoker, occasional EtOH intake, [employer] employee Admission Exam Per Admitting Provider Physical Exam: GENERAL: uncomfortable, anxious, obese, no respiratory distress SKIN: Normal color, warm HEENT: [place] palpebral conjunctivae, no ptosis, dry buccal mucosa, NGT in place NECK : Supple, short neck, no tenderness CHEST : CTA, no tenderness HEART : RRR, no obvious murmurs ABDOMEN: Some distention, no overt tenderness EXTREMITIES : Minimal LE swelling, no LE tenderness, no other conspicuous deformities noted NEUROLOGIC : Coherent, no facial asymmetry, no other gross focality Principal Diagnosis laparoscopic cholecystectomy Discharge Exam Lying in bed in discomfort secondary to abdominal pain Constitutional well developed, well nourished, + ill appearing and + obese Eyes PERRL, conjunctivae normal, anicteric sclerae ENMT external ear and nose normal, oropharynx normal Neck trachea midline, no thyromegaly Respiratory no respiratory distress Auscultation: lungs clear to auscultation bilaterally Cardiovascular Rate/Rhythm: regular rate and regular rhythm; not tachycardic Heart Sounds: normal S1 and normal S2; no murmur Extremities: no edema Gastrointestinal (Abdomen) Inspection/Auscultation: + abdomen distended; + abnormal bowel sounds (Decreased bowel sound) Percussion/Palpation: + abdomen tender (All over) and abdomen soft Neurologic normal touch/pain/proprioception and moves all extremities; no focal motor deficits Lymphatic no cervical or axillary lymphadenopathy Discharge Data Allergies Allergy/AdvReac Type Severity Reaction Status Date / Time Penicillins Allergy Unknown Rash Verified 01/08/24 22:50 Consultations 01/09/24 00:49 ED Decision to Admit Stat 01/09/24 03:04 Consult General Surgery Routine Procedures Performed Operation Date: 01/12/24 08:00 Actual Procedures p Diagnostic Laparoscopy, Laparoscopic Cholecystectomy(Not Applicable) - Donavan Callahan DO Ordered Studies 01/08/24 22:56 CT abd pelvis IV con only Stat 01/11/24 09:21 CT Abd and Pelvis [CT abd pelvis oral and IV con] Urgent Hospital Course (1) Small bowel obstruction: Small bowel obstruction Suspected enteritis H/O appendectomy --CT ABD:Multiple abnormal fluid distended small bowel loops in the left inferior abdomen and midline pelvis, measuring 3.2 cm in size. There is no clear focal transition point; however, there is asymmetric decompression of the distal small bowel loops in the right lower quadrant. Findings may represent enteritis. However, a partial small bowel obstruction is difficult to exclude given this appearance. No pneumatosis or pneumoperitoneum. --Repeat CT BAD:No bowel obstruction is identified. The obstruction seen on 01/08/2024 appears resolved. An enteric tube is in place. Trace free fluid is seen in the lower abdomen and pelvis. Hepatic steatosis. --Continue bowel rest, gentle IV fluids --Empirically started on Cipro, Flagyl --Continue NG tube-has been draining a lot --Appreciate surgery input --Stool for C. difficile has been --Pain control Still has high NG output-and it has been draining a lot Repeat CT abdomen showed resolution of obstruction, patient had no return of bowel movement. KUB did show improvement but the symptoms are persisting and quite disabling Was seen by surgeon this morning and he will be taken to or sometime this afternoon for possible lysis of adhesions Noted to acute cholecystitis as below and he is a status post laparoscopic cholecystectomy on 01/12/2024 Acute cholecystitis He was not improving with current management including suction, sedation antibiotic and pain medications He is imaging studies were looking better He underwent laparoscopic evaluation and noted to have acute cholecystitis S/p cholecystectomy on 01/12/2024 He has been feeling much better following the procedure Likely to be discharged this afternoon Situational hypertension Monitor BP Pain control as above Will monitor blood pressure Prediabetes HbA1c 5.8 Mood disorder Continue paroxetine as able DVT Px: Lovenox SQ Code Status Full code (2) Acute cholecystitis: Total Time Total Time Spent Total Time Spent (In Minutes): 35 minutes Discharge Plan Discharge Items Patient Disposition: Home - Self-Care Reason For Visit: SBO Discharge Diagnosis: laparoscopic cholecystectomy Condition on Discharge: Fair Activity: Per Instructions section Lifting: No more than 10 pounds Bathing Comment: may shower; no soaking in tubs/pools x 2 weeks Exercise/Sports: Wait until after follow-up appointment Driving/Machine Use: no driving while taking narcotics for pain Non-emergency contact: Primary Care Provider and Surgeon Call non-emergency contact if: you have any medication questions, your symptoms worsen, you have a fever, your temperature is above 101.5, your wound has increased redness, your wound has increased drainage and your wound pain has increased Follow-up/Referrals: Donavan Callahan DO [Surgeon] - 01/31/24 10:15 am (please call to schedule follow up in clinic within 2 weeks ) Mane Stiles MD [Primary Care Provider] - 01/20/24 11:20 am (Date & Time 01/20/2024 11:20 AM Provider Mane Stiles MD [facility] ) Diet: Regular and Low Fat Addtl Attending Provider Instructions: You have skin glue over your incisions called dermabond. you may shower with this on. It will tend to dissolve and fall off within a couple weeks. Do not pick at the skin glue Pending Studies at Discharge: Yes Studies:: surgical pathology Stand-Alone Forms: My [facility] [employer], Smoking Cessation Medications and DC Order Prescriptions: New oxycodone 5 mg tablet 5 - 10 mg PO .[id number] MDD no more than 6 tabs in 24hours PRN (Reason: pain) Qty: 15 0RF Rx Instructions: Take one to two tablets by mouth every 4-6 hours as needed for pain. Continued paroxetine HCl [Paxil] 40 mg Tablet 40 mg PO QPM Discharge Orders: Discharge Order (Routine); Ordered 01/13/24 Ordered By: Nadine King Admission Data Admit Date/Time: 01/09/24 01:23 Attending Provider: Nadine King Admit Provider: Jesus León Primary Care Provider: Mane Stiles Other Providers: Clem Dunn; Jesus León; Brody Randolph; Zackery Land; Jeovany Christopher; Donavan Callahan; Anival Bonner; Damaris Cooper; Sharad Ayala; Driss Briseno; Shraddha Souza.; Sukumar Ayala. Other Interventions: Discharge Summary Assessment (RN) Last Done: 01/13/24 14:17
== END 2024-01-13 14:34 | disposition home or self-care (01) | DRG 357 ==
LOC: ED 21:52 → 3W 01-09 01:23 → SUATTDRO 01-09 01:23 → 3W 01-09 02:30

== ENCOUNTER 2024-01-22 12:13 | Inpatient (IN) ==
[2024-01-22 13:04] LABS: Basophils # (auto) 0.09 K/uL (0.00-0.20); Basophils % (auto) 0.8 %; Eosinophils % (auto) 3.6 %; Hematocrit (blood only) 44.2 % (42.0-52.0); Hemoglobin 14.7 g/dl (14.0-18.0); Immature Granulocytes # (auto) 0.09 K/uL (0.01-0.20); Immature Granulocytes % (auto) 0.8 %; Lymphocytes # (auto) 3.41 K/uL (1.20-3.40); Lymphocytes % (auto) 30.8 %; Mean Corpuscular Hgb Conc 33.3 g/dL (32.0-36.0); Mean Corpuscular Volume 84.2 fL (80.0-100.0); Mean Platelet Volume 9.8 fL (9.4-12.4); Monocytes % (auto) 9.9 %; Neutrophils # (auto) 5.98 K/uL (1.40-6.50); Neutrophils % (auto) 54.1 %; Platelet Count 316 K/uL (130-400); RDW Standard Deviation 39.7 fL (36.4-46.3); Red Blood Count 5.25 M/uL (4.70-6.10); White Blood Count 11.07 K/ul (4.8-10.8)
[2024-01-22 13:20] LABS: Albumin Globulin Ratio 1.1 (0.9-2); Albumin Level 4.4 gm/dl (3.4-5.0); Bilirubin,Total 0.7 mg/dl (0.2-1.0); Calcium 9.5 mg/dl (8.6-10.3); Creatinine Clr Calc Pharmacy 84.8 ml/min; Est GFR (African American) 82.4 ml/min; Est GFR (Non-African American) 71.1 ml/min; Globulin 4.1 gm/dl (2.5-4.0); Potassium 3.9 mmol/L (3.5-5.1); Total Protein 8.5 gm/dl (6.0-8.3)
[2024-01-22] MEDS: OPTIRAY 320 500ml IV ONE (13:58)
[2024-01-22] MEDS: MoRPHine SULFATE 4 MG/ML 1 ML CARP\\VIAL IV STA ×2 (14:02→14:45)
[2024-01-22] MEDS: SODIUM CHLORIDE 0.9% 1,000 ML IV ONE (14:02)
[2024-01-22] MEDS: ONDANSETRON INJ 2 MG/ML 2 ML VIAL IV STA (14:02)
--- NOTE | 2024-01-22 14:06 | Emergency Department Note ---
Impression & Plan Abdominal pain, Nausea & vomiting, S/P cholecystectomy ED Provider Note CHIEF COMPLAINT: Right upper quadrant abdominal pain status post cholecystectomy HISTORY OF PRESENT ILLNESS: This 48-year-old male patient presents to the emergency department via private vehicle for evaluation of right upper quadrant abdominal pain. The patient states he had a cholecystectomy about 10 days ago. He states that prior to that, he had been admitted for a possible small bowel obstruction. He was taken to the OR for exploratory laparoscopy due to the persistent abdominal pain and notes he was found to have acute cholecystitis and the gallbladder was removed. He states that since that time, he has been experiencing right upper quadrant abdominal pain. He states he did see his general surgeon 3 days ago and noted the pain but at that time did not have any fever, nausea, or vomiting. He was started on antibiotics and given tramadol. He states since then, starting last evening after eating a hamburger, he developed sudden worsening of the right upper quadrant abdominal pain. He states he feels very bloated. He has not passed gas or had a bowel movement since yesterday. He denies any fever but has had sweats and chills. He states the pain in the right upper quadrant is very sharp in nature. He is unable to get comfortable with positioning. He states the tramadol did not help. He denies any dysuria, urinary frequency, urinary hesitancy, hematuria. He denies any recent diarrhea. He denies any chest pain or shortness of breath. Pain does feel similar nature to what he has been experiencing over the past week, but notes that this is much worse. REVIEW OF SYSTEMS: A 10 system review of systems was performed with positives and pertinent negatives listed in the history of present illness. All other systems were reviewed and are negative. ALLERGIES: Penicillin PHYSICAL EXAM: VITALS: Vitals are noted on the nurse's note and reviewed by myself. Vital signs stable. GENERAL: This is a 48-year-old male, in no acute distress, nondiaphoretic, well- developed well-nourished. SKIN: The skin was without rashes, erythema, edema, or bruising. There is no tenting of the skin. Capillary refill less than 2 seconds. HEAD: Normocephalic atraumatic. EYES: Conjunctivae without injection, sclerae without icterus. MOUTH: Mucous membranes dry. Tonsils are not enlarged. Pharynx without erythema or exudate. Uvula midline. Airway patent. Tongue does not deviate. NECK: Supple without nuchal rigidity. No lymphadenopathy. Cervical spine is nontender. No JVD. HEART: Regular rate and rhythm without murmurs gallops or rubs. LUNGS: Clear to auscultation bilaterally without wheezes, rales or rhonchi. No retractions or accessory muscle use. ABDOMEN: Hypoactive bowel sounds x 4. Abdomen is generally distended. There is tenderness in the right upper quadrant. No obvious masses or organomegaly. No guarding or rebound tenderness. There is tenderness to percussion of the right flank. MUSCULOSKELETAL: No muscle atrophy, erythema, or edema noted. Full range of motion without joint tenderness in all extremities. No tenderness to palpation. Normal gait. Strength 5/5 throughout. NEURO: Patient was alert and oriented to person place and time. No focal neurological deficits. An order was placed for continuous monitoring coordinator. The monitor showed a normal sinus rhythm at a ventricular rate of 90 bpm, per my interpretation. Imaging as interpreted by myself and the radiologist revealed trace fluid and mild inflammation in the gallbladder fossa. The gallbladder is surgically absent and unable to rule out bile leak. Radiologist interpretation as above. I agree with the radiologist's findings as based upon my independent interpretation. EMERGENCY DEPARTMENT COURSE: The patient was seen and evaluated as above. Patient presents with right upper quadrant pain and is about 10 days status post cholecystectomy after an exploratory surgery to evaluate abdominal pain. Patient has had significant pain since the surgery, but this suddenly worsened several hours after eating dinner last night. Given the patient's history and physical examination with right upper quadrant tenderness to palpation, distended abdomen, and hypoactive bowel sounds, did elect to perform the above-mentioned workup. IV access was obtained, labs were drawn. Mild leukocytosis 11.07. No concerning anemia or thrombocytopenia. Renal, hepatic function and electrolytes without significant abnormality. Lipase 16. Urinalysis negative for blood or evidence of infection. CT imaging was completed and as above. There is concern for possible bile leak given the patient's symptoms and history/examination I did discuss the case with Kumar Fernandes PA-C with general surgery. She did agree to see and evaluate the patient. Recommended admission to the medicine team. She did request that the patient be started on broad-spectrum antibiotics at this time. General surgery will see the patient and develop a final plan. I discussed the case with Rachel Velazquez PA-C with [facility] hospitalist. She did agree to see and evaluate the patient for admission The patient was managed with IV narcotics, fluids, and antiemetics. He was medicated with cefepime while in the emergency department. Please see hospitalist and general surgery dictation regarding ongoing management care of this patient While in the department, I personally reevaluated the patient several times and each time the patient was found to be resting comfortably. The patient was educated upon management, educated upon todays findings/results, educated upon importance of follow up from today's visit, educated upon symptoms in which to return, had questions answered prior to discharge, verbalized understanding, and was discharged home in good condition. This visit is during a period of high volume and high acuity in the emergency department. I attest that I have personally reviewed the patient medication list. I attest that I have reviewed the patient's blood pressure and it was found to be elevated. Referred to hospitalist. GCS: 15 In the evaluation and treatment of this patient the following differential diagnoses were entertained: Bile leak, pancreatitis, abscess, infection, small bowel obstruction, constipation, malignancy, among others The chart was completed utilizing [employer] Speech voice recognition software. Grammatical errors, random word insertions, pronoun errors, and incomplete sentences are an occasional consequence of this system due to software limitations, ambient noise, and hardware issues. Any formal questions or concerns about the content, text, or information contained within the body of this dictation should be directly addressed to the provider for clarification. Past Med/Surg History Medical History No significant past medical history Surgical History Hx laparoscopic cholecystectomy (01/12/24) Diagnostic Laparoscopy, Laparoscopic Cholecystectomy(Not Applicable) - Donavan Callahan DO History of shoulder surgery History of appendectomy Family History Other Family history non-contributory Social History Smoking Status: Never smoker Second Hand Exposure: No; Do You Dip or Chew Tobacco: No; Hx Alcohol Use: No Hx Substance Use: No Preferred Language: German Communication Ability: Effective Family Nurse Required: No Beliefs That Will Affect Care: None Current Living Situation: Significant Other Current Living Situation Comment: Girlfriend. Other Information That Helps Us Care for You: No Feels Safe at Home: Yes Safety Concerns: Feels Safe At This Time Assistive Devices: Glasses Allergies Allergies Allergy/AdvReac Type Severity Reaction Status Date / Time Penicillins Allergy Unknown Rash Verified 01/22/24 15:12 Home Meds Home Medications Medication Instructions Recorded Confirmed paroxetine HCl 40 mg tablet (Paxil) 40 mg PO QPM 01/08/24 01/22/24 Previous Rx's Medication Instructions Recorded sulfamethoxazole 800 1 tab PO BID 7 days #14 tabs 01/19/24 mg-trimethoprim 160 mg tablet (Bactrim DS) tramadol 50 mg tablet 50 mg PO Q8H PRN pain #20 tabs 01/19/24 Results & Data (ED) Vital Signs Vital Signs - 24 hr 01/22/24 12:23 01/22/24 12:47 01/22/24 12:56 Temperature 36.8 C Temperature Source Temporal Artery Scan Pulse Rate 84 92 H 90 Pulse Rate from SpO2 Sensor 87 Respiratory Rate 18 16 Respiratory Effort / Characteristics Non-Labored Spontaneous Respiratory Depth Normal Blood Pressure 154/101 H 164/102 H Blood Pressure Mean 118 122 Pulse Oximetry 98 98 Oxygen Delivery Method Room Air Sepsis Recent Fever Within 48 Hours No Sepsis New/Unexplained Change in Mental Status No Sepsis Action Taken by Nursing No Action Required 01/22/24 13:00 01/22/24 13:31 01/22/24 14:05 Temperature Temperature Source Pulse Rate 90 80 81 Pulse Rate from SpO2 Sensor 89 85 82 Respiratory Rate 15 20 20 Respiratory Effort / Characteristics Respiratory Depth Blood Pressure 153/93 H 141/87 H 135/91 Blood Pressure Mean 113 105 105 Pulse Oximetry 98 71 L 98 Oxygen Delivery Method Sepsis Recent Fever Within 48 Hours Sepsis New/Unexplained Change in Mental Status Sepsis Action Taken by Nursing 01/22/24 14:30 01/22/24 15:00 01/22/24 15:30 Temperature Temperature Source Pulse Rate 82 87 94 H Pulse Rate from SpO2 Sensor 84 87 96 H Respiratory Rate 12 21 20 Respiratory Effort / Characteristics Respiratory Depth Blood Pressure 122/92 133/99 149/86 H Blood Pressure Mean 102 110 107 Pulse Oximetry 98 99 97 Oxygen Delivery Method Sepsis Recent Fever Within 48 Hours Sepsis New/Unexplained Change in Mental Status Sepsis Action Taken by Nursing Laboratory Data 01/22/24 12:47 01/22/24 12:47 Lab Results 01/22/24 01/22/24 Range/Units 12:47 13:32 WBC 11.07 H (4.8-10.8) K/ul RBC 5.25 (4.70-6.10) M/uL Hgb 14.7 (14.0-18.0) g/dl Hct 44.2 (42.0-52.0) % MCV 84.2 (80.0-100.0) fL MCH 28.0 (25.0-34.0) pg MCHC 33.3 (32.0-36.0) g/dL RDW Std Deviation 39.7 (36.4-46.3) fL RDW Coeff of Kym 13.0 (11.5-14.5) % Plt Count 316 (130-400) K/uL MPV 9.8 (9.4-12.4) fL Immature Gran % (Auto) 0.8 % Neut % (Auto) 54.1 % Lymph % (Auto) 30.8 % [place] % (Auto) 9.9 % Eos % (Auto) 3.6 % Baso % (Auto) 0.8 % Neut # (Auto) 5.98 (1.40-6.50) K/uL Lymph # (Auto) 3.41 H (1.20-3.40) K/uL [place] # (Auto) 1.10 H (0.11-0.59) K/uL Eos # (Auto) 0.40 (0.00-0.50) K/uL Baso # (Auto) 0.09 (0.00-0.20) K/uL Immature Gran # (Auto) 0.09 (0.01-0.20) K/uL Sodium 134 L (136-145) mmol/L Potassium 3.9 (3.5-5.1) mmol/L Chloride 101 (98-107) mmol/L Carbon Dioxide 24 (21-32) mmol/L Anion Gap 9 (3-11) BUN 12 (6-23) mg/dl Creatinine 1.20 (0.6-1.4) mg/dl Est Cr Clr Drug Dosing 84.8 ml/min Est GFR ( Amer) 82.4 ml/min Est GFR (Non-Af Amer) 71.1 ml/min BUN/Creatinine Ratio 10.0 (10-20) Glucose 101 H (70-99(Fasting)) mg/dl Calcium 9.5 (8.6-10.3) mg/dl Total Bilirubin 0.7 (0.2-1.0) mg/dl AST 16 (13-39) U/L ALT 31 (7-52) U/L Alkaline Phosphatase 74 (34-104) U/L Total Protein 8.5 H (6.0-8.3) gm/dl Albumin 4.4 (3.4-5.0) gm/dl Globulin 4.1 H (2.5-4.0) gm/dl Albumin/Globulin Ratio 1.1 (0.9-2) Lipase 16 (11-82) U/L Urine Color Yellow Urine Appearance Clear (Clear) Urine pH 5.5 (4.5-7.5) Ur Specific [place] 1.022 (1.000-1.030) Urine Protein Negative (Negative) Urine Glucose (UA) Negative (Negative) Urine Ketones Negative (Negative) Urine Blood Negative (Negative) Urine Nitrite Negative (Negative) Urine Bilirubin Negative (Negative) Urine Urobilinogen Negative (Negative) Ur Leukocyte Esterase Negative (Negative) Administered Medications Hydromorphone HCl (Hydromorphone Inj 0.5 Mg/0.5 Ml Syr) 0.5 mg IV Q6H PRN PRN Reason: Severe Pain (Scale 7, 8, 9,10) Stop: 02/05/24 18:11 Last Admin: 01/22/24 18:45 Dose: 0.5 mg Documented By: DORA Lactated Ringer's (Lr) 1,000 mls @ 125 mls/hr IV .Q8H THALIA Stop: 02/21/24 15:44 Last Admin: 01/22/24 16:12 Dose: 125 mls/hr Documented By: SAL Discontinued Medications Hydromorphone HCl (Hydromorphone Inj 0.5 Mg/0.5 Ml Syr) 0.5 mg IV NOW STA Stop: 01/22/24 15:18 Last Admin: 01/22/24 16:10 Dose: 0.5 mg Documented By: SAL Sodium Chloride (Nss) 1,000 mls @ 999 mls/hr IV .Q1H1M ONE Stop: 01/22/24 14:44 Last Admin: 01/22/24 14:02 Dose: 999 mls/hr Documented By: MAYA Cefepime HCl (Maxipime) 2,000 mg in 20 mls @ 5 mls/min IV NOW STA; Protocol Stop: 01/22/24 14:59 Last Admin: 01/22/24 16:12 Dose: 5 mls/min Documented By: SAL Ioversol (Optiray 320 500ml) 87 ml IV ONCE ONE Stop: 01/22/24 13:59 Last Admin: 01/22/24 13:58 Dose: 87 ml Documented By: SHAMIKA Morphine Sulfate (Morphine Sulfate 4 Mg/Ml 1 Ml Carp\Vial) 4 mg IV NOW STA Stop: 01/22/24 13:45 Last Admin: 01/22/24 14:02 Dose: 4 mg Documented By: MAYA Morphine Sulfate (Morphine Sulfate 4 Mg/Ml 1 Ml Carp\Vial) 4 mg IV NOW STA Stop: 01/22/24 14:38 Last Admin: 01/22/24 14:45 Dose: 4 mg Documented By: CATHRYN Ondansetron HCl (Ondansetron Inj 2 Mg/Ml 2 Ml Vial) 4 mg IV NOW STA Stop: 01/22/24 13:45 Last Admin: 01/22/24 14:02 Dose: 4 mg Documented By: MAYA Imaging Data Radiologist's Impression: Abdomen/Pelvis CT 01/22/24 13:44 CT SCAN OF THE ABDOMEN AND PELVIS WITH IV CONTRAST CLINICAL HISTORY: Right upper quadrant abdominal pain status post cholecystectomy. Distention. COMPARISON STUDY: Abdominal CT dated 01/11/2024. Abdominal ultrasound dated 04/29/2020. TECHNIQUE: Following the IV administration of 87 cc of Optiray 320, CT scan of the abdomen and pelvis is performed from the lung bases to the proximal femora. Images are reviewed in the axial, sagittal, and coronal planes. IV contrast was administered without complication. A dose lowering technique was utilized adhering to the principles of ALARA. CT DOSE: 1365.56 mGy.cm FINDINGS: Lung bases: The heart is normal in size and without pericardial effusion. The lung bases are clear. There is a tiny hiatal hernia. Liver: The contrast-enhanced liver is top normal in size measuring 17.5 cm in length. Hepatic attenuation is diffusely diminished indicating steatosis. There is no intrahepatic biliary ductal dilatation. The hepatic veins and portal veins are patent. Gallbladder: Surgically absent noting clips in the gallbladder fossa. There is trace fluid and mild inflammatory change seen in the gallbladder fossa. No organized/drainable collection is identified. Spleen: Normal in size and attenuation. Pancreas: Unremarkable. Adrenal glands: Unremarkable. Kidneys: The contrast enhanced kidneys are normal in size and without hydronephrosis. The kidneys enhance symmetrically. A 1.5 cm cyst is noted on the right. Abdominal vasculature: The abdominal aorta is normal in course and caliber. Bowel: There are scattered colonic diverticula without CT evidence of acute diverticulitis. No bowel obstruction is seen. The appendix is not identified and reported surgically absent. Peritoneum: There is no intraperitoneal free air or abdominal ascites. There is a small fat-containing umbilical hernia. A 2.4 cm pocket of fluid within the ventral abdominal wall seen on image #147 likely presents a small seroma related to laparoscopy port. Lymphadenopathy: None. Pelvic viscera: The bladder, prostate, and seminal vesicles are normal as visualized. Skeletal structures: No lytic or blastic lesions are seen. IMPRESSION: 1. The gallbladder is surgically absent, with trace fluid and mild inflammation in the gallbladder fossa. No drainable fluid collection is seen. Given the history of recent cholecystectomy this may represent expected postsurgical change. A bile leak would be impossible to exclude, and the sterility of this fluid cannot be assessed by imaging. Clinical and laboratory correlation will be essential. If there is strong clinical concern for a bile leak then a nuclear hepatobiliary scan could be considered. 2. Hepatic steatosis. 3. Additional findings as above. ACT 112: Negative or not required by law. Electronically signed by: Nicola Arthur M.D. 01/22/2024 2:09 PM Discharge Plan Visit Data Chief Complaint: Abdominal Pain Stated Complaint: ABDOMINAL PAIN S/P GALL BLADDER REMOVAL ED Provider: Les Arevalo ED Midlevel Provider: Paz Mohr Discharge Problem: Abdominal pain, Nausea & vomiting, S/P cholecystectomy Patient Disposition: Admitted As Inpatient Discharge Instructions Interventions: ED Discharge Assessment Last Done: 01/22/24 18:12
--- NOTE | 2024-01-22 14:11 | CT Scan Report ---
CT SCAN OF THE ABDOMEN AND PELVIS WITH IV CONTRAST CLINICAL HISTORY: Right upper quadrant abdominal pain status post cholecystectomy. Distention. COMPARISON STUDY: Abdominal CT dated 01/11/2024. Abdominal ultrasound dated 04/29/2020. TECHNIQUE: Following the IV administration of 87 cc of Optiray 320, CT scan of the abdomen and pelvi s is performed from the lung bases to the proximal femora. Images are reviewed in the axial, sagittal , and coronal planes. IV contrast was administered without complication. A dose lowering technique wa s utilized adhering to the principles of ALARA. CT DOSE: 1365.56 mGy.cm FINDINGS: Lung bases: The heart is normal in size and without pericardial effusion. The lung bases are clear. T here is a tiny hiatal hernia. Liver: The contrast-enhanced liver is top normal in size measuring 17.5 cm in length. Hepatic attenua tion is diffusely diminished indicating steatosis. There is no intrahepatic biliary ductal dilatation . The hepatic veins and portal veins are patent. Gallbladder: Surgically absent noting clips in the gallbladder fossa. There is trace fluid and mild i nflammatory change seen in the gallbladder fossa. No organized/drainable collection is identified. Spleen: Normal in size and attenuation. Pancreas: Unremarkable. Adrenal glands: Unremarkable. Kidneys: The contrast enhanced kidneys are normal in size and without hydronephrosis. The kidneys enh ance symmetrically. A 1.5 cm cyst is noted on the right. Abdominal vasculature: The abdominal aorta is normal in course and caliber. Bowel: There are scattered colonic diverticula without CT evidence of acute diverticulitis. No bowel obstruction is seen. The appendix is not identified and reported surgically absent. Peritoneum: There is no intraperitoneal free air or abdominal ascites. There is a small fat-containin g umbilical hernia. A 2.4 cm pocket of fluid within the ventral abdominal wall seen on image #147 lik marino presents a small seroma related to laparoscopy port. Lymphadenopathy: None. Pelvic viscera: The bladder, prostate, and seminal vesicles are normal as visualized. Skeletal structures: No lytic or blastic lesions are seen. IMPRESSION: 1. The gallbladder is surgically absent, with trace fluid and mild inflammation in the gallbladder fo ssa. No drainable fluid collection is seen. Given the history of recent cholecystectomy this may repr esent expected postsurgical change. A bile leak would be impossible to exclude, and the sterility of this fluid cannot be assessed by imaging. Clinical and laboratory correlation will be essential. If t here is strong clinical concern for a bile leak then a nuclear hepatobiliary scan could be considered . 2. Hepatic steatosis. 3. Additional findings as above. ACT 112: Negative or not required by law. Electronically signed by: Nicola Arthur M.D. 01/22/2024 2:09 PM
[2024-01-22 14:56] LABS: Appearance Urine Clear (Clear); Bilirubin Urine Negative (Negative); Blood Urine Negative (Negative); Color Urine Yellow; Glucose Urine UA Negative (Negative); Ketones Urine Negative (Negative); Leukocyte Esterase Urine Negative (Negative); Nitrite Urine Negative (Negative); Protein Urine Negative (Negative); Specific Gravity Urine 1.022 (1.000-1.030); Urobilinogen Urine Negative (Negative); pH Urine 5.5 (4.5-7.5)
--- NOTE | 2024-01-22 15:26 | History & Physical Report ---
Date of Service January 22, 2024 Assessment & Plan (1) Post-op pain: (2) Hx laparoscopic cholecystectomy: Plan This is a 48-year-old male has significant past medical history of anxiety who is being mated for management of postoperative right upper quadrant pain: Postop laparoscopic cholecystectomy on 01/12/[address] Callahan Post operative RUQ pain admit to medical consult general surgery --CT abd/pelvis: The gallbladder is surgically absent, with trace fluid and mild inflammation in the gallbladder fossa. No drainable fluid collection is seen. Given the history of recent cholecystectomy this may represent expected postsurgical change. A bile leak would be impossible to exclude, and the sterility of this fluid cannot be assessed by imaging. Clinical and laboratory correlation will be essential. If there is strong clinical concern for a bile leak then a nuclear hepatobiliary scan could be considered. Broad spectrum IV antibiotics with Cipro and Flagyl IV APAP mild pain, IV toradol moderate pain, IV dilaudid severe pain NPO for now until seen by surgery IV LR @ 125cc/hr Generalized Anxiety continue paxil mood stable DVT ppx: Encourage ambulation Dispo: med/surg FULL CODE PCP: Linsey Pt was seen and examined in collaboration with Dr. Kevin, please see addendum A total of 55 minutes was spent coordinating, documenting, and providing care for this patient excluding time spent in the performance of separately billed services. This included personally viewing all current laboratories and imaging studies, medication reconciliation, outpatient chart review, and discussion with specialists. History of Present Illness Chief Complaint: Abd pain x 3 days. Primary Care Provider: Mane Stiles MD This is a 48-year-old male who has a significant past medical history of generalized anxiety disorder who presents to ED secondary to right upper quadrant abdominal pain. Of significance patient was recently hospitalized 01/09 to 01/13 secondary to abdominal pain. He initially was diagnosed with a partial small bowel obstruction and NG tube was placed. There was also question if patient was experiencing enteritis. He did have significant NG tube output and follow-up images ensured resolution of bowel obstruction. His NG tube was discontinued but patient continued to have right upper quadrant abdominal pain. He was seen and evaluated by general surgery who opted to take patient for diagnostic laparoscopy. During this procedure they found patient had acute cholecystitis and his gallbladder was removed. Pathology reports from this procedure reveal a gallbladder with chronic cholecystitis. He was seen and evaluated by general surgery and follow-up and was continuing to complain of pain. It was felt that pain was likely related to some fluid under the diaphragm. He was prescribed oral Bactrim for 1 week and also tramadol for pain control. He was seen in clinic on 01/19/2024 and states initially he started feeling improved until last evening. His pain in his right upper quadrant returned and started to increase. He states pain is located in right upper quadrant and wraps around to his right side of his back. It is constant but does wax and wane in severity. It is made worse with deep breathing and movement. Nothing seems to improve the pain. It does not seem to be aggravated with meals. He denies any shortness of breath, chest pain or coughing. He states he woke up this morning and he was drenched in sweat, but did not take his temperature. He otherwise denies any documented fever. He denies any chills, lightheadedness, dizziness, emesis, diarrhea, melena, hematochezia, dysuria, increased urgency or frequency with urination. He is moving bowels regularly and last moved his bowels yesterday which is normal for him. In ED patient remained hemodynamically stable. He did have a mild leukocytosis at 11k,, H&H was stable at 14.7 and 44.2 [address] urinalysis was negative. CT abdomen pelvis revealed a gallbladder that is surgically absent with trace fluid and mild inflammation of the gallbladder fossa but no drainable fluid collection noted. Pt's mom and dad are at bedside who also help elicit hx. Allergies Allergy/AdvReac Type Severity Reaction Status Date / Time Penicillins Allergy Unknown Rash Verified 01/22/24 15:12 Home Medications Medication Instructions Recorded Confirmed Type paroxetine HCl 40 mg tablet (Paxil) 40 mg PO QPM 01/08/24 01/22/24 History sulfamethoxazole 800 1 tab PO BID 7 days #14 tabs 01/19/24 01/22/24 Rx mg-trimethoprim 160 mg tablet (Bactrim DS) tramadol 50 mg tablet 50 mg PO Q8H PRN pain #20 tabs 01/19/24 01/22/24 Rx Past Med/Surg History Medical History No significant past medical history Surgical History Hx laparoscopic cholecystectomy (01/12/24) Diagnostic Laparoscopy, Laparoscopic Cholecystectomy(Not Applicable) - Donavan Callahan, History of shoulder surgery History of appendectomy Family History Other Family history non-contributory Social History Smoking Status: Never smoker Second Hand Exposure: No; Do You Dip or Chew Tobacco: No; Hx Alcohol Use: No Hx Substance Use: No Preferred Language: Setswana Communication Ability: Effective Maintenance Trainer Required: No Beliefs That Will Affect Care: None Current Living Situation: Significant Other Current Living Situation Comment: Girlfriend. Other Information That Helps Us Care for You: No Feels Safe at Home: Yes Safety Concerns: Feels Safe At This Time Assistive Devices: None Review of Systems Review of Systems: All systems reviewed & are unremarkable except as noted in HPI & below Physical Exam Physical Exam: Constitutional: WD/WN, vitals as above, NAD, sitting up in bed, pleasant, conversing easily Head: Normocephalic, Atraumatic Eyes: PERRL, conjunctivae normal, anicteric sclerae ENMT: external ear and nose normal, oropharynx normal Neck: trachea midline, no thyromegaly normal visual inspection Respiratory: normal respiratory effort, lungs clear to auscultation, no wheeze, rales, rhonchi. Normal insp/exp effort, no accessory muscle use Cardiovascular: RRR, no murmur, no edema Vessels: no JVD or carotid bruit Chest: normal inspection of chest Abdomen: normal bowel sounds, soft, TTP RUQ, incisionx x 4 CDI, + rebound, no guarding or rigidity, no hepatosplenomegaly Musculoskeletal: no cyanosis or clubbing, extremities motor strength 5/5 Skin: no rashes, warm and dry normal turgor Neurologic: PERRL, EOMI, accommodation nl, no face palsy, no dysarthria CN's II-XI intact bilaterally and moves all extremities Psychiatric: A+Ox3, euthymic affect Lymphatic: no cervical or axillary lymphadenopathy : deferred Results & Data Results & Data Vital Signs (Past 12 Hours) Vital Signs Temp Pulse Resp BP Pulse Ox O2 Del Method 01/22/24 14:05 81 20 135/91 98 01/22/24 13:31 80 20 141/87 H 71 L 01/22/24 13:00 90 15 153/93 H 98 01/22/24 12:56 90 01/22/24 12:47 92 H 16 164/102 H 98 01/22/24 12:23 36.8 C 84 18 154/101 H 98 Room Air Diagnostic Findings Abdomen/Pelvis CT 01/22/24 13:44 CT SCAN OF THE ABDOMEN AND PELVIS WITH IV CONTRAST CLINICAL HISTORY: Right upper quadrant abdominal pain status post cholecystectomy. Distention. COMPARISON STUDY: Abdominal CT dated 01/11/2024. Abdominal ultrasound dated 04/29/2020. TECHNIQUE: Following the IV administration of 87 cc of Optiray 320, CT scan of the abdomen and pelvis is performed from the lung bases to the proximal femora. Images are reviewed in the axial, sagittal, and coronal planes. IV contrast was administered without complication. A dose lowering technique was utilized adhering to the principles of ALARA. CT DOSE: 1365.56 mGy.cm FINDINGS: Lung bases: The heart is normal in size and without pericardial effusion. The lung bases are clear. There is a tiny hiatal hernia. Liver: The contrast-enhanced liver is top normal in size measuring 17.5 cm in length. Hepatic attenuation is diffusely diminished indicating steatosis. There is no intrahepatic biliary ductal dilatation. The hepatic veins and portal veins are patent. Gallbladder: Surgically absent noting clips in the gallbladder fossa. There is trace fluid and mild inflammatory change seen in the gallbladder fossa. No organized/drainable collection is identified. Spleen: Normal in size and attenuation. Pancreas: Unremarkable. Adrenal glands: Unremarkable. Kidneys: The contrast enhanced kidneys are normal in size and without hydronephrosis. The kidneys enhance symmetrically. A 1.5 cm cyst is noted on the right. Abdominal vasculature: The abdominal aorta is normal in course and caliber. Bowel: There are scattered colonic diverticula without CT evidence of acute diverticulitis. No bowel obstruction is seen. The appendix is not identified and reported surgically absent. Peritoneum: There is no intraperitoneal free air or abdominal ascites. There is a small fat-containing umbilical hernia. A 2.4 cm pocket of fluid within the ventral abdominal wall seen on image #147 likely presents a small seroma related to laparoscopy port. Lymphadenopathy: None. Pelvic viscera: The bladder, prostate, and seminal vesicles are normal as visualized. Skeletal structures: No lytic or blastic lesions are seen. IMPRESSION: 1. The gallbladder is surgically absent, with trace fluid and mild inflammation in the gallbladder fossa. No drainable fluid collection is seen. Given the history of recent cholecystectomy this may represent expected postsurgical change. A bile leak would be impossible to exclude, and the sterility of this fluid cannot be assessed by imaging. Clinical and laboratory correlation will be essential. If there is strong clinical concern for a bile leak then a nuclear hepatobiliary scan could be considered. 2. Hepatic steatosis. 3. Additional findings as above. ACT 112: Negative or not required by law. Electronically signed by: Nicola Arthur M.D. 01/22/2024 2:09 PM Medications Administered Medication List Discontinued Medications Sodium Chloride (Nss) 1,000 mls @ 999 mls/hr IV .Q1H1M ONE Stop: 01/22/24 14:44 Last Admin: 01/22/24 14:02 Dose: 999 mls/hr Documented By: MAYA Ioversol (Optiray 320 500ml) 87 ml IV ONCE ONE Stop: 01/22/24 13:59 Last Admin: 01/22/24 13:58 Dose: 87 ml Documented By: SHAMIKA Morphine Sulfate (Morphine Sulfate 4 Mg/Ml 1 Ml Carp\Vial) 4 mg IV NOW STA Stop: 01/22/24 13:45 Last Admin: 01/22/24 14:02 Dose: 4 mg Documented By: MAYA Morphine Sulfate (Morphine Sulfate 4 Mg/Ml 1 Ml Carp\Vial) 4 mg IV NOW STA Stop: 01/22/24 14:38 Last Admin: 01/22/24 14:45 Dose: 4 mg Documented By: CATHRYN Ondansetron HCl (Ondansetron Inj 2 Mg/Ml 2 Ml Vial) 4 mg IV NOW STA Stop: 01/22/24 13:45 Last Admin: 01/22/24 14:02 Dose: 4 mg Documented By: MAYA COVID-19 Results Results COVID-19 Adm Lab Results: RBC 4.77 M/uL (4.70-6.10) 01/23/24 WBC 5.91 K/ul (4.8-10.8) 01/23/24 Hgb 13.1 g/dl (14.0-18.0) L 01/23/24 Hct 39.7 % (42.0-52.0) L 01/23/24 Plt Count 240 K/uL (130-400) 01/23/24 Neutrophils (%) (Auto) 51.7 % 01/23/24 Lymphocytes (%) (Auto) 26.9 % 01/23/24 Monocytes # (Auto) 0.77 K/uL (0.11-0.59) H 01/23/24 Eosinophils # (Auto) 0.40 K/uL (0.00-0.50) 01/23/24 Immature Granulocyte % (Auto) 0.8 % 01/23/24 Neutrophils # (Auto) 3.05 K/uL (1.40-6.50) 01/23/24 Lymphocytes # (Auto) 1.59 K/uL (1.20-3.40) 01/23/24 Monocytes # (Auto) 0.77 K/uL (0.11-0.59) H 01/23/24 Eosinophils # (Auto) 0.40 K/uL (0.00-0.50) 01/23/24 Basophils # (Auto) 0.05 K/uL (0.00-0.20) 01/23/24 Immature Granulocyte # (Auto) 0.05 K/uL (0.01-0.20) 4 Na 136 mmol/L (136-145) 01/23/24 K 3.9 mmol/L (3.5-5.1) 01/23/24 Cl 103 mmol/L (98-107) 01/23/24 CO2 28 mmol/L (21-32) 01/23/24 Anion Gap 5 (3-11) 01/23/24 BUN 12 mg/dl (6-23) 01/23/24 Creatinine 1.00 mg/dl (0.6-1.4) 01/23/24 BUN/Creatinine Ratio 12.0 (10-20) 01/23/24 Glucose Level 87 mg/dl (70-99(Fasting)) 01/23/24 Ca 8.7 mg/dl (8.6-10.3) 01/23/24 Total Bilirubin 0.9 mg/dl (0.2-1.0) 01/23/24 AST/SGOT 79 U/L (13-39) H 01/23/24 ALT/SGPT 110 U/L (7-52) H 01/23/24 Alkaline Phosphatase 86 U/L (34-104) 01/23/24 Total Protein 7.0 gm/dl (6.0-8.3) 01/23/24 Albumin 3.9 gm/dl (3.4-5.0) 01/23/24 Globulin 3.1 gm/dl (2.5-4.0) 01/23/24 Albumin/Globulin Ratio 1.3 (0.9-2) 01/23/24 Code Status & VTE Plan Code Status FULL CODE Supervising Physician Co-Signing Physician Notes Pt was seen and examined. Agreed with Rachel MURGUIA exam, assessment and plan. 48-year-old male with significant past medical history of generalized anxiety disorder, s/p cholecystectomy who presents to ED secondary to right upper quadrant abdominal pain. Pt was recently hospitalized from 01/09 to 01/13 for abdominal pain where he underwent cholecystectomy. Pt said that he has been having worsening RUQ pain. Denies any chills, lightheadedness, dizziness, emesis, diarrhea, melena, hematochezia, dysuria. CT abd/pelvis done in ER showed gallbladder is surgically absent, with trace fluid and mild inflammation in the gallbladder fossa. No drainable fluid collection is seen. Will start on IV cipro and flagyl. Continue pain control with dilaudid and IV toraldol. Will consult general surgery. Will keep NPO for now. Continue IVF. Will monitor electrolytes. Continue monitor closely. MD Herberth
--- NOTE | 2024-01-22 16:02 | Surgery Consultation ---
Date of Consultation January 22, 2024 Assessment & Plan (1) Hx laparoscopic cholecystectomy: (2) Post-op pain: ED imaging, labwork and provider notes reviewed prior to seeing patient. Guicho is 10 days s/p Laparoscopic Cholecystectomy. He returns with increasing right upper quadrant pain that never truly went away following removal of gallbladder. ? etiology. CT scan cannot rule out bile leak. Will order HIDA scan. No need for surgical intervention at this time. Admission per hospitalist team. Recommend keeping patient NPO for now. IV antibiotics and pain management per primary team. Plan and assessment reviewed with Dr. Christopher. Supervising Physician Co-Signing Physician Notes As per Kumar Fernandes physician home based assistant Agree with plans of more History of Present Illness Reason for Consultation: Abdominal pain 10 days s/p Laparoscopic Cholecystectomy History of Present Illness Mejia is a 48-year-old male who presented to [facility] ED for evaluation for worsening right upper quadrant pain. Guicho is 10 days s/p Laparoscopic Cholecystectomy with Dr. Callahan after 4 day hospital stay with persistent abdominal pain and possible bowel obstruction. Guicho states that his abdominal pain did improve following Lap [place], but never entirely went away. He was last evaluated by Dr. Callahan in clinic 3 days ago. Guicho states that he told Dr. Callahan about this continued pain. Dr. Callahan felt that most likely cause was due to fluid under his right diaphragm. He was given prescription for Tramadol and was started on course of Bactrim. Guicho states that the tramadol initially helped, but then his abdominal pain started to become worse. He reports that yesterday was the last time that he moved his bowels. For dinner last night, he had a hamburger. He reports that a few hours after dinner was when the pain became intense. He reports nausea, but has not thrown up. Labs from ED: WBC 11.07 Tot Bili 0.7 AST 16 ALT 31 Alk Phos [address] of the abdomen was performed and showed the the gallbladder is surgically absent, with trace fluid and mild inflammation in the gallbladder fossa. No drainable fluid collection is seen. Given the history of recent cholecystectomy this may represent expected postsurgical change. A bile leak would be impossible to exclude. Currently, Guicho reports that he does have right upper quadrant abdominal pain and does continue to feel nauseous. Allergies Allergy/AdvReac Type Severity Reaction Status Date / Time Penicillins Allergy Unknown Rash Verified 01/22/24 15:12 Home Medications Medication Instructions Recorded Confirmed Type paroxetine HCl 40 mg tablet (Paxil) 40 mg PO QPM 01/08/24 01/22/24 History sulfamethoxazole 800 1 tab PO BID 7 days #14 tabs 01/19/24 01/22/24 Rx mg-trimethoprim 160 mg tablet (Bactrim DS) tramadol 50 mg tablet 50 mg PO Q8H PRN pain #20 tabs 01/19/24 01/22/24 Rx Patient History Medical History No significant past medical history Surgical History Hx laparoscopic cholecystectomy (01/12/24) Diagnostic Laparoscopy, Laparoscopic Cholecystectomy(Not Applicable) - Donavan Callahan, History of shoulder surgery History of appendectomy Family History Other Family history non-contributory Social History Smoking Status: Never smoker Second Hand Exposure: No; Do You Dip or Chew Tobacco: No; Hx Alcohol Use: No Hx Substance Use: No Preferred Language: Swedish Communication Ability: Effective Electrical Design Technologist Required: No Beliefs That Will Affect Care: None Current Living Situation: Significant Other Current Living Situation Comment: Girlfriend. Other Information That Helps Us Care for You: No Feels Safe at Home: Yes Safety Concerns: Feels Safe At This Time Assistive Devices: Glasses Review of Systems Constitutional: as per Subjective / HPI; no fever and no chills Respiratory: no cough and no dyspnea Gastrointestinal: + abdominal pain (right upper quadrant) and + nausea; no vomiting Physical Exam Constitutional: WD/WN, vitals as above Respiratory: normal respiratory effort; no respiratory distress and no labored breathing Gastrointestinal (Abdomen): Inspection/Auscultation: + abdomen distended and + abdominal surgical incision (surgical incisions are CDI, no signs of infection) Percussion/Palpation: + abdomen tender (right upper quadrant) and abdomen soft; no guarding and abdomen not rigid Psychiatric: A+Ox3, euthymic affect Results & Data Vital Signs (Past 12 Hours) Vital Signs Temp Pulse Resp BP Pulse Ox O2 Del Method 01/22/24 14:05 81 20 135/91 98 01/22/24 13:31 80 20 141/87 H 71 L 01/22/24 13:00 90 15 153/93 H 98 01/22/24 12:56 90 01/22/24 12:47 92 H 16 164/102 H 98 01/22/24 12:23 36.8 C 84 18 154/101 H 98 Room Air PG Care Time/CCT Total # of Minutes Spent Total Time Spent with Patient: Total time spent is greater than 50% in coordination of care (as documented) at patient's floor/unit and/or counseling patient: Coding Level of Care Code 49140 IN/OBS CONSULT LVL 2,35M Diagnoses Hx laparoscopic cholecystectomy Z90.49 Post-op pain G89.18
[2024-01-22] MEDS: HYDROmorphone INJ 0.5 MG/0.5 ML SYR IV STA (16:10)
[2024-01-22] MEDS: LACTATED RINGER'S 1,000 ML IV SCH (16:12)
[2024-01-22] MEDS: CEFEPIME 2,000 MG/20 ML VIAL IV STA (16:12)
[2024-01-22] MEDS ORDERED: ALUMINUM/MAGNESIUM SUSP 30 ML UDC PO PRN (18:12)
--- OUTSIDE RECORDS SUMMARY | 2024-01-22 18:27 | External Medical Summary | Summary of Care ---
Author Name Unknown Organization [facility] Address [address] [place] [address] Phone [phone] Care Team Providers Care Bone Density Technician Name Role Phone Mane Stiles MD Primary Care Provider [phone] Encounter Details Date Type Department Care Team (Late st Contact Info) Description 01/21/2024 11:00 AM EST Scheduled Telephone Care Coordination and Integration [address] [place] [address] Kimberli Erickson, [facility] Junior Art Director [address], [place] [id number] Allergies Active Allergy Reactions Criticality Noted Date Comments Amoxicillin Rash Medium 02/09/2022 Penicillins 03/02/2022 documented as of this encounter (statuses as of 01/21/2024) Medications Medication Sig Dispensed Refills Start Date End Date Status oxyCODONE HCl 5 MG Oral Capsule (Oxy IR) Take 1-2 Capsules by mouth every 4 hours as needed for Pain, Severe. 0 Active PARoxetine HCl 40 MG Oral Tablet (pAXil) Take 1 Tablet by mouth at bedtime. 0 Active Sulfamethoxazole-Trim ethoprim 800-160 MG Oral Tablet (Bactrim DS) Take 1 Tablet by mouth in the morning and 1 Tablet before bedtime. 0 Active documented as of this encounter (statuses as of 01/21/2024) Active Problems Problem Noted Date Diagnosed Date ЕЛЕНА (generalized anxiety disorder) 07/16/2023 ADVANCE DIRECTIVE INFORMATION 09/01/2007 Overview: No, Advance Directive brochure offered , patient declined. documented as of this encounter (statuses as of 01/21/2024) Immunizations Name Administration Dates Next Due PPD 10/07/2016 TD - Tetanus/Diptheria (ADULT) 09/17/2005 TDAP (age 10 and older)(Boostrix) 10/26/2013 documented as of this encounter Social History Tobacco Use Types Packs/Day Years Used Date Smoking Tobacco: Never Smokeless Tobacco: Never Alcohol Use Standard Drinks/Week Comments Yes 0 (1 standard drink = 0.6 oz pur e alcohol) 2 beers once every 2 wks PHQ-2 Answer Date Recorded PHQ Adult Total Score 0 01/14/2024 Hunger Vital Sign Answer Date Recorded Within the past 12 months, y ou worried that your food would run out before you got the money to buy more. Never true 01/14/20 24 Within the past 12 months, t he food you bought just didn't last and you didn't have money to get more. Never true 01/14/2024 Sex and Gender Information Value Date Recorded Sex Assigned at Not on file Gender Identity Not on file Sexual Orientation Not on file Job Start Date Occupation Industry Not on file Not on file Not on file documented as of this encounter Progress Notes * Kimberli Erickson [facility] Junior Art Director - 01/21/2024 11:09 AM EST Telemedicine visit: No Community [facility] Junior Art Director (M[facility]) documentation: [facility] week 2 f/u call per MARLYN Henson [facility] survey completed; pt. Has no new complaints or issues Confirmed contact info for CM documented in this encounter Plan of Treatment Scheduled Procedures Name Priority Associated Diagnoses Date/Ti me COLONOSCOPY FLEXIBLE PROXIMA L DIAGNOSTIC Recall Screening for colon cancer Health Maintenance Due Date Last Done Comments Diabetes Screening 1975 Lipid Panel 1975 HIV Screening 1990 Hepatitis C Screening 1993 Hepatitis B (1 of 3 - 19+ 3-dose series) 1994 Cologuard 2020 Fecal Occult Blood Test 2020 Sigmoidoscopy 2020 COVID-19 Vaccine ( - 2022-2 4 season) 2023 Influenza Vaccine (FLU shot) (#1) 2023 DTaP,Tdap,and Td Vaccines (2 - Td or Tdap) 10/26/2023 10/26/2013, 09/17/2005 Depression Screening 01/14/2025 01/14/2024 Colonoscopy 01/26/2030 01/26/2020, 01/26/2020 Colorectal Cancer Screening [...] Discussed due to patient's condition Care Teams Bone Density Technician Relationship Specialty Start Date End Date Mane Stiles MD [address] [place] [address] PCP - General Family Medicine 01/13/24 documented as of this encounter
[2024-01-22] MEDS: HYDROmorphone INJ 0.5 MG/0.5 ML SYR IV PRN (18:45)
[2024-01-22] MEDS: PARoxetine HCL 20 MG TAB PO SCH (20:09)
[2024-01-22] MEDS: CIPROFLOXACIN / D5W 400 MG/200 ML BAG IV SCH (20:11)
[2024-01-22] MEDS: metroNIDAZOLE 500 MG/100 ML BAG IV SCH (20:11)
[2024-01-22] MEDS: FAMOTIDINE 20 MG in SYRINGE 3 ML IV ONE (21:52)
[2024-01-22] MEDS: KETOROLAC TROMETHAMINE 15 MG/ML VIAL IV PRN (21:52)
--- NOTE | 2024-01-23 06:11 | Surgery Progress Note ---
Date of Service January 23, 2024 Assessment & Plan (1) Abdominal pain: Plan: Patient is status postcholecystectomy on 01/12/2024. From a surgical perspective continue care as follows -CT scan of abdomen pelvis from 01/22/2024 does not identify any drainable fluid collections in the gallbladder fossa. The interpreting radiologist the scan could not definitively excluded bile leak. A HIDA scan has been ordered which is pending (will most likely not feel be performed until 01/24/2024) Provide analgesics Provide antiemetics Maintain n.p.o. status Continue IV fluid for hydration until oral intake can be advanced and is adequate Continue antibiotics in the form of Cipro and Flagyl Mobilize as able Check a.m. labs when available Patient has had a low-grade elevated temp on 1 occasion. Will continue to monitor and if this persists or recurs we will pursue evaluation and etiology of this. Admission and Anticipated Discharge Date Admission Date: January 22, 2024 Supervising Physician Co-Signing Physician Notes As per Danny Land physician assistant facility manager The patient is resting comfortably in bed at this time in fact he is on his cell phone without any issues He is alert coherent sclera nonicteric In the supine position the abdomen was examined is completely benign localized tenderness at the costochondral margin near the lateral trocar site at the rib edge there is no subcostal tenderness In reviewing the case from the beginning prior to the surgery and with the surgical findings the patient presented with a very atypical clinical picture At this time this clinical picture continues to unfold in a very bizarre way Will await HIDA scan continue with the present management with analgesic Restart oral intake was a full liquid diet Increase activity Subjective Patient is currently resting in bed. He notes he has continued right upper quadrant abdominal pain. He also reports he has intermittent nausea without emesis. Since admission to the hospital he has not had a bowel movement or passed any flatus. Physical Exam Gastrointestinal (Abdomen): Bowel sounds are absent. Abdomen has minimal distention. Laparoscopic inc isions from cholecystectomy are clean, dry, and intact. Significant tenderness noted with palpation of the right upper quadrant. Results & Data Vital Signs (Past 12 Hours) Vital Signs Temp Pulse Resp BP Pulse Ox O2 Del Method 01/22/24 20:37 37.7 C H 84 16 128/63 96 Room Air 01/22/24 18:18 Room Air 01/22/24 18:17 36.7 C 87 16 150/91 H 96 Room Air PG Care Time/CCT Total # of Minutes Spent Total Time Spent with Patient: Total time spent is greater than 50% in coordination of care (as documented) at patient's floor/unit and/or counseling patient: Coding Level of Care Code 67931 Post Operative Follow-Up Diagnoses Abdominal pain R10.9
[2024-01-23 07:32] LABS: Basophils # (auto) 0.05 K/uL (0.00-0.20); Basophils % (auto) 0.8 %; Eosinophils % (auto) 6.8 %; Hematocrit (blood only) 39.7 % (42.0-52.0); Hemoglobin 13.1 g/dl (14.0-18.0); Immature Granulocytes # (auto) 0.05 K/uL (0.01-0.20); Immature Granulocytes % (auto) 0.8 %; Lymphocytes # (auto) 1.59 K/uL (1.20-3.40); Lymphocytes % (auto) 26.9 %; Mean Corpuscular Hemoglobin 27.5 pg (25.0-34.0); Mean Corpuscular Volume 83.2 fL (80.0-100.0); Mean Platelet Volume 10.2 fL (9.4-12.4); Monocytes # (auto) 0.77 K/uL (0.11-0.59); Neutrophils # (auto) 3.05 K/uL (1.40-6.50); Neutrophils % (auto) 51.7 %; Platelet Count 240 K/uL (130-400); RDW Coefficient of Variation 12.8 % (11.5-14.5); RDW Standard Deviation 38.8 fL (36.4-46.3); Red Blood Count 4.77 M/uL (4.70-6.10); White Blood Count 5.91 K/ul (4.8-10.8)
[2024-01-23 07:50] LABS: Albumin Globulin Ratio 1.3 (0.9-2); Albumin Level 3.9 gm/dl (3.4-5.0); Bilirubin,Total 0.9 mg/dl (0.2-1.0); Calcium 8.7 mg/dl (8.6-10.3); Creatinine Clr Calc Pharmacy 101.8 ml/min; Est GFR (African American) 102.7 ml/min; Est GFR (Non-African American) 88.6 ml/min; Globulin 3.1 gm/dl (2.5-4.0); Potassium 3.9 mmol/L (3.5-5.1)
[2024-01-23] MEDS: POLYETHYLENE (MIRALAX) 17 GM PACK PO PRN (10:41)
[2024-01-23] MEDS: OPTIRAY 320 125ml IV ONE (12:25)
--- NOTE | 2024-01-23 12:48 | CT Scan Report ---
CHEST CTA for PULMONARY ARTERIES CT DOSE: 865.35 mGy.cm HISTORY: Right-sided chest pain. Shortness of breath. TECHNIQUE: Multiaxial CT images of the chest were performed following the intravenous administration of contrast to evaluate the pulmonary arteries. 3D/Maximal intensity projection images were also obta ined. Sagittal and coronal reformations were also reviewed. A dose lowering technique was utilized a dhering to the principles of ALARA. COMPARISON STUDY: Chest CTA 10/03/2020. FINDINGS: Normal caliber thoracic aorta with no evidence for a dissection. The heart is normal in siz e. No pleural or pericardial effusions. No filling defects within the pulmonary arteries to suggest a pulmonary embolus. Evidence for recent cholecystectomy with trace fluid/inflammatory change again no maru at the gallbladder fossa. The visualized spleen and adrenal glands are unremarkable. Normal calib er esophagus. The thyroid gland enhances normally. No mediastinal or hilar lymphadenopathy. No acute fractures identified. Mild central bronchial wall thickening, unchanged. No focal lung consolidations to suggest a pneumonia. No evidence for pulmonary edema. The central airways are patent. No pneumoth orax. Stable 4 mm nodule within the base of the right middle lobe on image 79. Therefore, this is lik marino benign. IMPRESSION: 1. No evidence for a pulmonary embolus. 2. No focal lung consolidations to suggest a pneumonia. 3. Status post recent cholecystectomy. ACT 112: Negative or not required by law. Electronically signed by: Caleb Pickard M.D. 01/23/2024 12:46 PM
--- NOTE | 2024-01-23 12:48 | Hospitalist Progress Note ---
Date of Service January 23, 2024 Assessment & Plan (1) Post-op pain: (2) Hx laparoscopic cholecystectomy: Plan This is a 48-year-old male has significant past medical history of anxiety who is being mated for management of postoperative right upper quadrant pain: Persistent right upper quadrant pain with mild elevation of LFTs Status post laparoscopic cholecystectomy on 01/12/[address] Callahan admit to medical consult general surgery --CT abd/pelvis: The gallbladder is surgically absent, with trace fluid and mild inflammation in the gallbladder fossa. No drainable fluid collection is seen. Given the history of recent cholecystectomy this may represent expected postsurgical change. A bile leak would be impossible to exclude, and the sterility of this fluid cannot be assessed by imaging. Clinical and laboratory correlation will be essential. If there is strong clinical concern for a bile leak then a nuclear hepatobiliary scan could be considered. Broad spectrum IV antibiotics with Cipro and Flagyl IV APAP mild pain, IV toradol moderate pain, IV dilaudid severe pain NPO for now until seen by surgery IV LR @ 125cc/hr 01/23 Patient still reporting significant right upper quadrant pain AST/ALT elevated compared to yesterday MRCP ordered to rule out choledocholithiasis or obstruction CT chest angiography ordered to rule out PE -discussed with patient and family regarding risk for acute kidney injury given he has received IV contrast yesterday, will continue with IV LR, hold Toradol Essential to rule out PE in this case in light of clinical presentation Patient and family verbalized understanding agreement with this plan Continue empiric ciprofloxacin plus Flagyl GI consulted Appreciate general surgery service input Generalized Anxiety continue paxil mood stable DVT ppx: Encourage ambulation, SCDs Hold Lovenox until procedures ruled Dispo: med/surg FULL CODE PCP: Linsey plan of care discussed with patient and his mother, sister in detail and at length all questions answered They are understanding, agreeable, comfortable with the plan of care Admission and Anticipated Discharge Date Admission Date: January 22, 2024 Subjective Follow-up for persistent right upper quadrant pain, status post laparoscopic cholecystectomy, etc. Seen resting in bed, not in distress, comfortable Patient's mother and sister at the bedside visiting -supplementing history Patient reports persistent right upper quadrant pain-sharp, worse with movement and deep inspiration, with some extension to the right lower lung area Having occasional nausea, good BMs at home-no hematochezia or melena No flatus today Was having night sweats the other day no chest pain, dyspnea, palpitations, dizziness No other new symptom Review of Systems Review of Systems: all noted and negative except for above Physical Exam Physical Exam: General- oriented x 3, not in distress, speaks in sentences with no effort or accessory muscle use Eyes- anicteric Neck- no JVD Lungs- clear breath sounds bilaterally, no crackles or wheeze Heart- normal rate, regular rhythm; no murmurs Abdomen- Lap sarabjit sites healing well normal-hypoactive bowel sounds, nondistended, soft, positive tenderness right upper quadrant Extremities- no pretibial edema, no calf tenderness Neuro- alert, oriented x 3; no gross focal neurologic deficits Skin- warm & dry Results & Data Results & Data Vital Signs (Past 12 Hours) Vital Signs Temp Pulse Resp BP Pulse Ox O2 Del Method 01/23/24 06:51 36.5 C 64 16 132/78 97 Room Air all noted and reviewed including below
[2024-01-23] MEDS: HYDROmorphone INJ 0.5 MG/0.5 ML SYR IV PRN ×2 (13:23→18:33)
[2024-01-23] MEDS: ACETAMINOPHEN 1,000 MG/100 ML VIAL IV PRN (15:02)
[2024-01-23] MEDS: HYDROmorphone INJ 0.5 MG/0.5 ML SYR IV STA (15:30)
[2024-01-23] MEDS ORDERED: LORazepam 0.5 MG in SYRINGE 0.25 ML IV PRN (19:41)
--- NOTE | 2024-01-23 20:07 | Magnetic Resonance Report ---
MR MRCP HISTORY: Recent cholecystectomy. RUQ pain, r/o obstruction TECHNIQUE: MRCP of the abdomen was performed without contrast according to standard departmental prot ocol. COMPARISON STUDY: Abdomen and pelvis CT 01/22/2024. FINDINGS: There is mild motion artifact. The lung bases are clear. Mild increased T2 signal within th e liver surrounding the gallbladder fossa. This is likely reactive to the recent acute cholecystitis/ cholecystectomy. The spleen, adrenal glands, and pancreas are unremarkable. Normal left kidney. There is a 1.5 cm cyst within the right kidney. No hydronephrosis. No retroperitoneal lymphadenopathy. Nor mal caliber abdominal aorta. The visualized loops of bowel show no wall thickening or obstruction. Sm all focus of subcutaneous fluid within the midline of the anterior abdominal wall, unchanged. This me asures 1.8 cm and likely represents the prior port site from the recent cholecystectomy. The common b ile duct and main pancreatic duct are normal in course and caliber. The common bile measures up to 5 mm in diameter. No filling defects within the common bile duct to suggest choledocholithiasis. Small focal fluid collection at the gallbladder fossa status post cholecystectomy. This measures approximat marino 2.2 x 1.3 cm. IMPRESSION: 1. Normal caliber common bile duct. No filling defects within the common bile duct to suggest choledo cholithiasis. 2. Normal main pancreatic duct. 3. A 2.2 x 1.3 cm focal fluid collection the gallbladder fossa. This is indeterminate but favors a po stoperative seroma. A small biloma or developing abscess are also considered in differential diagnosi s. ACT 112: Negative or not required by law. Electronically signed by: Caleb Pickard M.D. 01/23/2024 8:05 PM
[2024-01-23] MEDS: KETOROLAC TROMETHAMINE 15 MG/ML VIAL IV PRN (20:39)
[2024-01-23] MEDS: ONDANSETRON INJ 2 MG/ML 2 ML VIAL IV PRN (20:39)
[2024-01-24] MEDS: ADVANCED PROBIOTIC 625 MG CAPSULE PO SCH (08:09)
--- NOTE | 2024-01-24 08:26 | Surgery Progress Note ---
Date of Service January 24, 2024 Assessment & Plan (1) Post-op pain: Plan: Patient states that the pain was controlled with the Dilaudid and now with the Toradol may be improving but is still quite incapacitating I discussed with the patient to have pain management see the patient and get their opinion regarding pain control or possibly nerve block intercostally I will leave it up to them for their discretion Patient is agreeable to that He has not had a bowel movements in admission and this is most likely related to the narcotic that he was taken he is on a laxative Admission and Anticipated Discharge Date Admission Date: January 22, 2024 Subjective Patient is still complaining of pain in his right side going around the right rib cage stating it hurts to move Denies nausea but has not had a bowel movement yet since admission Physical Exam Physical Exam: Alert coherent sclera nonicteric laying comfortable in bed with his iPad The supine position the abdomen is benign trocar sites are healing well The patient left lateral position is markedly tender along the 10th rib from the costochondral margin posteriorly There is no redness or any cellulitis in that area or even the trocar sites Results & Data Vital Signs (Past 12 Hours) Vital Signs Temp Pulse BP Pulse Ox O2 Del Method 01/24/24 07:57 36.8 C 70 142/89 H 99 Room Air
--- NOTE | 2024-01-24 08:31 | Pain Management Consultation ---
Date of Consultation January 24, 2024 Assessment & Plan (1) S/P cholecystectomy: (2) Post-op pain: Plan 1. A definable trigger point was noted on examination over the patient's region of pain. However, given question of possible bile leak recommend completion of HIDA scan as previously ordered prior to interventional pain management. 2. Should HIDA scan be negative consider trigger point injection at the bedside. This was discussed briefly with the patient this morning and he was agreeable pending outcome of imaging. 3. In the interim recommend utilization of heat massage and baclofen 10 mg p.o. twice daily as needed. He may continue to utilize his other medications as previous. 4. Thank you for this consultation. History of Present Illness Attending Physician: Rah Amanda MD History of Present Illness 48-year-old male who had a laparoscopic cholecystectomy performed on 01/12/2024. He returned to the emergency room on 01/22/2024 with complaints of right lower quadrant pain. He reports pain ranges between 2-5/10 sharp stabbing at times localized at 1 specific site about 3-4" lateral to his trocar sites RLQ. He denies radicular pain from his thoracic region or flank pain. Pain is not temporal to eating/drinking/breathing/coughing. Pain is worsened with palpation to the area. Nothing seems to make the pain better that he has found. He admits he has not eaten anything substantial in a few days and has not had a BM in a few days (attributes to not eating). No urinary issues per pt. No distal radicular sxs/fever/chills/motor weakness. He states dilaudid and toradol minimizes pain for a short period of time. He is awaiting a HIDA scan today to r/o bile leak. He is eager to try anything to minimize this discomfort. Pain Assessment Full Body Front + Back: 2 1. [facility] Combined Pain Scale: 5-Moderate - Cannot perform normal tasks without increase in pain Pain scale - at its best (0-10): 2 Pain scale - at its worst (0-10): 5 Allergies Allergy/AdvReac Type Severity Reaction Status Date / Time Penicillins Allergy Unknown Rash Verified 01/22/24 15:12 Home Medications Medication Instructions Recorded Confirmed Type paroxetine HCl 40 mg tablet (Paxil) 40 mg PO QPM 01/08/24 01/22/24 History sulfamethoxazole 800 1 tab PO BID 7 days #14 tabs 01/19/24 01/22/24 Rx mg-trimethoprim 160 mg tablet (Bactrim DS) tramadol 50 mg tablet 50 mg PO Q8H PRN pain #20 tabs 01/19/24 01/22/24 Rx Pain History Pain Intensity Pain scale - at its best (0-10): 2 Pain scale - at its worst (0-10): 5 Patient History Medical History No significant past medical history Surgical History Hx laparoscopic cholecystectomy (01/12/24) Diagnostic Laparoscopy, Laparoscopic Cholecystectomy(Not Applicable) - Donavan Callahan DO History of shoulder surgery History of appendectomy Family History Other Family history non-contributory Social History Smoking Status: Never smoker Second Hand Exposure: No; Do You Dip or Chew Tobacco: No; Hx Alcohol Use: No Hx Substance Use: No Preferred Language: Tajik Communication Ability: Effective Chimney Mechanic Required: No Beliefs That Will Affect Care: None Current Living Situation: Significant Other Current Living Situation Comment: Girlfriend. Other Information That Helps Us Care for You: No Feels Safe at Home: Yes Safety Concerns: Feels Safe At This Time Assistive Devices: None Physical Exam 2 Physical Exam: Constitutional: Well-developed, well-nourished, healthy-appearing, normal weight Psych: Awake, alert, and oriented 3 with normal affect and mood. Recent memory appears grossly intact, calm and cooperative on exam Eyes: Pupils are equally round and reactive to light with normal size pupils, eyelids appear normal Ear, nose, mouth, and throat: Moist nasal and oral membranes, lips and tongues appear normal, no external ear abnormalities are noted Neck: The trachea is midline without deviation and no thyromegaly is noted Respiratory: Normal respiratory effort without distress, no audible wheezes or rhonchi CV: Normal S1 and S2, warm distal extremities Chest: Deferred GI/abdomen: Soft, well-healing incision sites without fluctuance or drainage. 3 discrete trigger points noted over the right lateral lower quadrant and palpation recreates the patient's typical pain. These trigger points are lateral to the trocar sites by approximately 3 to 4 inches. Musculoskeletal: Head is normocephalic and atraumatic, gait not observed Cervical: Lordotic curve: Normal Range of motion is normal with extension, flexion, side-bending, rotation Strength: Strength is grossly equal bilaterally with 5 out of 5 strength in all planes Thoracic: Kyphotic curve: Normal Range of motion is normal with extension, flexion, side-bending, rotation Tenderness: Nontender over the axial midline Facet provocation: Negative bilaterally Myofascial spasm: No appreciable spasm. No discrete trigger points noted Lumbar: Lordotic curve: Normal Range of motion is normal with extension, flexion, side-bending, rotation Strength: Strength is grossly equal bilaterally with 5 out of 5 strength in all planes Skin: No rashes, lesions, ulcers, or induration noted. Well-healing trocar incision sites post lap sarabjit. Neuro: No nystagmus noted, the tongue is midline, the patient is able to rotate their head bilaterally : Deferred Results (Pain Clinic) Laboratory Review Laboratory results: personally reviewed by me and no pertinent findings Diagnostic Review MRI: non enhanced and reports reviewed MRI Findings: 01/23/24 MR MRCP HISTORY: Recent cholecystectomy. RUQ pain, r/o obstruction TECHNIQUE: MRCP of the abdomen was performed without contrast according to standard departmental protocol. COMPARISON STUDY: Abdomen and pelvis CT 01/22/2024. FINDINGS: There is mild motion artifact. The lung bases are clear. Mild increased T2 signal within the liver surrounding the gallbladder fossa. This is likely reactive to the recent acute cholecystitis/cholecystectomy. The spleen, adrenal glands, and pancreas are unremarkable. Normal left kidney. There is a 1.5 cm cyst within the right kidney. No hydronephrosis. No retroperitoneal lymphadenopathy. Normal caliber abdominal aorta. The visualized loops of bowel show no wall thickening or obstruction. Small focus of subcutaneous fluid within the midline of the anterior abdominal wall, unchanged. This measures 1.8 cm and likely represents the prior port site from the recent cholecystectomy. The common bile duct and main pancreatic duct are normal in course and caliber. The common bile measures up to 5 mm in diameter. No filling defects within the common bile duct to suggest choledocholithiasis. Small focal fluid collection at the gallbladder fossa status post cholecystectomy. This measures approximately 2.2 x 1.3 cm. IMPRESSION: 1. Normal caliber common bile duct. No filling defects within the common bile duct to suggest choledocholithiasis. 2. Normal main pancreatic duct. 3. A 2.2 x 1.3 cm focal fluid collection the gallbladder fossa. This is indeterminate but favors a postoperative seroma. A small biloma or developing abscess are also considered in differential diagnosis. CT: non enhanced and reports reviewed CT Findings: 01/22/24 CT SCAN OF THE ABDOMEN AND PELVIS WITH IV CONTRAST CLINICAL HISTORY: Right upper quadrant abdominal pain status post cholecystectomy. Distention. COMPARISON STUDY: Abdominal CT dated 01/11/2024. Abdominal ultrasound dated 04/29/2020. TECHNIQUE: Following the IV administration of 87 cc of Optiray 320, CT scan of the abdomen and pelvis is performed from the lung bases to the proximal femora. Images are reviewed in the axial, sagittal, and coronal planes. IV contrast was administered without complication. A dose lowering technique was utilized adhering to the principles of ALARA. CT DOSE: 1365.56 mGy.cm FINDINGS: Lung bases: The heart is normal in size and without pericardial effusion. The lung bases are clear. There is a tiny hiatal hernia. Liver: The contrast-enhanced liver is top normal in size measuring 17.5 cm in length. Hepatic attenuation is diffusely diminished indicating steatosis. There is no intrahepatic biliary ductal dilatation. The hepatic veins and portal veins are patent. Gallbladder: Surgically absent noting clips in the gallbladder fossa. There is trace fluid and mild inflammatory change seen in the gallbladder fossa. No organized/drainable collection is identified. Spleen: Normal in size and attenuation. Pancreas: Unremarkable. Adrenal glands: Unremarkable. Kidneys: The contrast enhanced kidneys are normal in size and without hydronephrosis. The kidneys enhance symmetrically. A 1.5 cm cyst is noted on the right. Abdominal vasculature: The abdominal aorta is normal in course and caliber. Bowel: There are scattered colonic diverticula without CT evidence of acute diverticulitis. No bowel obstruction is seen. The appendix is not identified and reported surgically absent. Peritoneum: There is no intraperitoneal free air or abdominal ascites. There is a small fat-containing umbilical hernia. A 2.4 cm pocket of fluid within the ventral abdominal wall seen on image #147 likely presents a small seroma related to laparoscopy port. Lymphadenopathy: None. Pelvic viscera: The bladder, prostate, and seminal vesicles are normal as visualized. Skeletal structures: No lytic or blastic lesions are seen. IMPRESSION: 1. The gallbladder is surgically absent, with trace fluid and mild inflammation in the gallbladder fossa. No drainable fluid collection is seen. Given the history of recent cholecystectomy this may represent expected postsurgical change. A bile leak would be impossible to exclude, and the sterility of this fluid cannot be assessed by imaging. Clinical and laboratory correlation will be essential. If there is strong clinical concern for a bile leak then a nuclear hepatobiliary scan could be considered. 2. Hepatic steatosis. 3. Additional findings as above. Radiology: reports reviewed and images reviewed Radiology Findings: 01/24/24 NUCLEAR HEPATOBILIARY SCAN CLINICAL HISTORY: Liver quadrant abdominal pain status post cholecystectomy. COMPARISON STUDY: Abdominal CT dated 01/22/2024 and MRCP dated 01/23/2024. TECHNIQUE: Dynamic images of the liver and anterior abdomen were obtained every 5 minutes for a total of 30 minutes following the IV administration of 5.1 mCi of technetium 99m Mebrofenin. An additional 50 minute delayed image was acquired. FINDINGS: The hepatobiliary scan shows prompt and homogeneous hepatic uptake. There is visualized activity within the intra and extrahepatic biliary tree at 10 minutes. There is normal biliary to bowel transit, with small bowel visualized by 15 minutes. There is no abnormal pooling of tracer within the gallbladder fossa to suggest bile leak. IMPRESSION: There is no scintigraphic evidence of bile leak as clinically queried.
[2024-01-24 08:42] LABS: Basophils # (auto) 0.05 K/uL (0.00-0.20); Basophils % (auto) 0.9 %; Eosinophils # (auto) 0.42 K/uL (0.00-0.50); Eosinophils % (auto) 7.2 %; Hematocrit (blood only) 39.3 % (42.0-52.0); Hemoglobin 12.8 g/dl (14.0-18.0); Immature Granulocytes # (auto) 0.04 K/uL (0.01-0.20); Immature Granulocytes % (auto) 0.7 %; Lymphocytes % (auto) 27.3 %; Mean Corpuscular Hemoglobin 27.5 pg (25.0-34.0); Mean Corpuscular Hgb Conc 32.6 g/dL (32.0-36.0); Mean Corpuscular Volume 84.5 fL (80.0-100.0); Mean Platelet Volume 9.7 fL (9.4-12.4); Monocytes # (auto) 0.84 K/uL (0.11-0.59); Monocytes % (auto) 14.3 %; Neutrophils # (auto) 2.91 K/uL (1.40-6.50); Neutrophils % (auto) 49.6 %; Platelet Count 238 K/uL (130-400); RDW Coefficient of Variation 12.5 % (11.5-14.5); Red Blood Count 4.65 M/uL (4.70-6.10); White Blood Count 5.86 K/ul (4.8-10.8)
[2024-01-24 08:58] LABS: Albumin Level 3.9 gm/dl (3.4-5.0); BUN Creatinine Ratio 7.7 (10-20); Bilirubin Direct 0.1 mg/dl (0-0.2); Bilirubin,Total 0.5 mg/dl (0.2-1.0); Calcium 8.8 mg/dl (8.6-10.3); Creatinine Clr Calc Pharmacy 97.8 ml/min; Est GFR (African American) 97.9 ml/min; Est GFR (Non-African American) 84.5 ml/min; Potassium 3.9 mmol/L (3.5-5.1)
--- NOTE | 2024-01-24 11:10 | Nuclear Medicine Report ---
NUCLEAR HEPATOBILIARY SCAN CLINICAL HISTORY: Liver quadrant abdominal pain status post cholecystectomy. COMPARISON STUDY: Abdominal CT dated 01/22/2024 and MRCP dated 01/23/2024. TECHNIQUE: Dynamic images of the liver and anterior abdomen were obtained every 5 minutes for a total of 30 minutes following the IV administration of 5.1 mCi of technetium 99m Mebrofenin. An additional 50 minute delayed image was acquired. FINDINGS: The hepatobiliary scan shows prompt and homogeneous hepatic uptake. There is visualized act ivity within the intra and extrahepatic biliary tree at 10 minutes. There is normal biliary to bowel transit, with small bowel visualized by 15 minutes. There is no abnormal pooling of tracer within th e gallbladder fossa to suggest bile leak. IMPRESSION: There is no scintigraphic evidence of bile leak as clinically queried. ACT 112: Negative or not required by law. Electronically signed by: Nicola Arthur M.D. 01/24/2024 11:09 AM
--- NOTE | 2024-01-24 12:40 | Gastrointestinal Consultation ---
Date of Consultation January 24, 2024 Assessment & Plan (1) Abdominal pain: Right sided abdomen/flank pain and abdominal distention. He is post Cholecystectomy. Imaging w normal bile ducts and no bile leak. He did have a bump in transaminases yesterday, decreasing today w ALT>AST. Plan - No indication for ERCP. - His pain seems more pleuritic or musculoskelatal because it is constant, very tender on palpation and unchanged w eating/drinking but he does have abdominal distention w/o bowel abnormalities on extensive imaging. Today's distention could be related to taking narcotics though pt insists it was present prior to arrival. - No GI contraindication to a regular consistency diet. Pain management is considering a trigger point injection which is very reasonable. - Continue to follow LFTs to resolution. GI will watch peripherally. Supervising Physician Co-Signing Physician Notes I performed a history and physical examination of the patient today, including specifically on physical exam - soft abdomen. I have discussed the patient's management with the advanced practitioner. Please refer to the nurse practitioner's note for the documented findings and plan of care. No bile leak. No abdominal wall. Pain is post surgical, seems to be localized in his subcostal area. Please follow up with General surgery for this and recall GI if needed. History of Present Illness Reason for Consultation: persistent RUQ pain, LFT elevation, s/p sarabjit Requesting Physician: Dr. Amanda Attending Physician: Rah Amanda MD History of Present Illness Mr. Jeffrey Hartmann is a 48 yr old male pt of Dr. Stiles w a hx of vitiligo, insomnia, appendicitis S/P appendectomy (1999) and diverticulitis (2018). He underwent lap cholecystectomy Jan 12 and initially did well after surgery but developed abd pain 2 days ago. On arrival, CT w IV w trace fluid in the GB fossa and MRCP w a 2.3cm fluid collection in the gallbladder fossa area; both imaging studies showed normal bile ducts. LFTs were normal on arrival but bumped this morning: AST 79, ALT 110. Of note, the pt was placed on Bactrim a few days ago for abd pain thought related to cholecystectomy. He tells me that this pain is the "same pain," that he felt prior to cholecystectomy. The pain had resolved w surgery but returned on last Wednesday. He describes the pain as "constant," and rates it a 7-8. Prior to cholecystectomy the pain was the entire upper abdomen. Now the pain is only on the right side of the abdomen (very far to the side - lateral to the nipple line, worse at the axillary line and radiating around to the right side of the back. Pain is actutely worsened w a deep breath. With the pain, abd distention returned (was present before cholecystectomy). He has been able to eat/drink clear liquids and did pass a BM most recently on Wednesday w/o a change in the pain. He was passing soft/formed BMs daily prior to Wednesday. He has been kept on a liquid diet since then and hasn't passed another BM. He also denies any diarrhea, vomiting or reflux symptoms. No epigastric burning pain. No blood in his BMs. No acholic BMs. No swollen lips/face or other sx of an allx reaction. He does have nausea, "when the pain is severe." His mom, dad, son are all in the room w him. They are very concerned. Mom mentions that she has psoriatic arthritis and her sister has Lupus. She is very worried that the pt has an undx'ed autoimmune disorder. He is awake and alert. He is clear that this pain is very unusual for him and that he too painful to go home. He asks if he should be transferred to [place] for an autoimmune work up. HIDA results are just back - negative for bile leak. Allergies Allergy/AdvReac Type Severity Reaction Status Date / Time Penicillins Allergy Unknown Rash Verified 01/22/24 15:12 Home Medications Medication Instructions Recorded Confirmed Type paroxetine HCl 40 mg tablet (Paxil) 40 mg PO QPM 01/08/24 01/22/24 History sulfamethoxazole 800 1 tab PO BID 7 days #14 tabs 01/19/24 01/22/24 Rx mg-trimethoprim 160 mg tablet (Bactrim DS) tramadol 50 mg tablet 50 mg PO Q8H PRN pain #20 tabs 01/19/24 01/22/24 Rx Patient History Medical History No significant past medical history Surgical History Hx laparoscopic cholecystectomy (01/12/24) Diagnostic Laparoscopy, Laparoscopic Cholecystectomy(Not Applicable) - Donavan Callahan DO History of shoulder surgery History of appendectomy Family History Other Family history non-contributory Social History Smoking Status: Never smoker Second Hand Exposure: No; Do You Dip or Chew Tobacco: No; Hx Alcohol Use: No Hx Substance Use: No Preferred Language: Yi Communication Ability: Effective Commercial Credit Reviewer Required: No Beliefs That Will Affect Care: None Current Living Situation: Significant Other Current Living Situation Comment: Girlfriend. Other Information That Helps Us Care for You: No Feels Safe at Home: Yes Safety Concerns: Feels Safe At This Time Assistive Devices: None Review of Systems Review of Systems: ROS: Gen: Denies weakness, fevers, weight loss Eyes:+ reports that he had very red eyes last Wednesday but not painful. No recent vision changes Resp: No SOB, no cough Cardio: No palpitations/irregular beats, no chest pain GI: As per HPI, otherwise (-) : Denies pain on urination Skin: + vitiligo; No jaundice, itching or new rashes : No pain on urination, no blood in urine, no difficulty getting the flow of urine started. Physical Exam Constitutional: WD/WN, vitals as above Eyes: mild redness, PEARLA ENMT: external ear and nose normal, oropharynx normal Neck: trachea midline, no thyromegaly Respiratory: pain w deep breath otherwise normal w/o any adventitious sounds. Cardiovascular: RRR, no murmur, no edema Gastrointestinal (Abdomen): mild/moderate distention; active BS throughout. Musculoskeletal: no cyanosis or clubbing, extremities motor strength 5/5 Skin: Vitiligo, no other rashes; no jaundice Neurologic: PERRL, EOMI, accommodation nl, no face palsy, no dysarthria Psychiatric: A+Ox3, euthymic affect Lymphatic: no cervical or axillary lymphadenopathy Results & Data Vital Signs (Past 12 Hours) Vital Signs Temp Pulse BP Pulse Ox O2 Del Method 01/24/24 07:57 36.8 C 70 142/89 H 99 Room Air Laboratory Results WBC 5.8, Hb 13, Hct 38, Plts 240, Na 136, K 3.9, Cl 103, CO2 28, BUN 12, Cr 1, Glucose 87 T Bili 0.5, D Bili 0.4, AST 30, ALT 75, Alk Phos 79. Diagnostic Findings HIDA 01/24/24: There is no scintigraphic evidence of bile leak as clinically queried MRCP 01/23/24: 1. Normal caliber common bile duct. No filling defects within the common bile duct to suggest choledocholithiasis. 2. Normal main pancreatic duct. 3. A 2.2 x 1.3 cm focal fluid collection the gallbladder fossa. This is indeterminate but favors a postoperative seroma. A small biloma or developing abscess are also considered in differential diagnosis. CTAP w IV 01/22/24: 1. The gallbladder is surgically absent, with trace fluid and mild inflammation in the gallbladder fossa. No drainable fluid collection is seen. Given the history of recent cholecystectomy this may represent expected postsurgical change. A bile leak would be impossible to exclude, and the sterility of this fluid cannot be assessed by imaging. Clinical and laboratory correlation will be essential. If there is strong clinical concern for a bile leak then a nuclear hepatobiliary scan could be considered. 2. Hepatic steatosis.
[2024-01-24] MEDS ORDERED: TRIAMCINOLONE ACET 40 MG/ML VIAL ONE (13:45)
[2024-01-24] MEDS ORDERED: BUPIVACAINE 0.5 % 5 MG/1 ML PF 10ML VIAL ONE (13:45)
[2024-01-24] MEDS: KETOROLAC 30 MG/ML VIAL ONE (14:29)
[2024-01-24] MEDS: BACLOFEN 10 MG TAB PO PRN (18:58)
--- NOTE | 2024-01-24 19:23 | Hospitalist Progress Note ---
Date of Service January 24, 2024 delayed entry date of service noted above Assessment & Plan (1) Post-op pain: (2) Hx laparoscopic cholecystectomy: Plan 1) Post-op pain: (2) Hx laparoscopic cholecystectomy: Plan (1) Post-op pain: (2) Hx laparoscopic cholecystectomy: Plan This is a 48-year-old male has significant past medical history of anxiety who is being mated for management of postoperative right upper quadrant pain: Persistent right upper quadrant pain with mild elevation of LFTs Status post laparoscopic cholecystectomy on 01/12/[address] Callahan admit to medical consult general surgery --CT abd/pelvis: The gallbladder is surgically absent, with trace fluid and mild inflammation in the gallbladder fossa. No drainable fluid collection is seen. Given the history of recent cholecystectomy this may represent expected postsurgical change. A bile leak would be impossible to exclude, and the sterility of this fluid cannot be assessed by imaging. Clinical and laboratory correlation will be essential. If there is strong clinical concern for a bile leak then a nuclear hepatobiliary scan could be considered. Broad spectrum IV antibiotics with Cipro and Flagyl IV APAP mild pain, IV toradol moderate pain, IV dilaudid severe pain NPO for now until seen by surgery IV LR @ 125cc/hr 01/23 Patient still reporting significant right upper quadrant pain AST/ALT elevated compared to yesterday MRCP ordered to rule out choledocholithiasis or obstruction: negative CT chest angiography ordered to rule out PE -discussed with patient and family regarding risk for acute kidney injury given he has received IV contrast yesterday, will continue with IV LR, hold Toradol Essential to rule out PE in this case in light of clinical presentation Patient and family verbalized understanding agreement with this plan Continue empiric ciprofloxacin plus Flagyl GI consulted Appreciate general surgery service input 01/24 pain about the same afebrile ALT continues to improve MRCP: no obstruction, A 2.2 x 1.3 cm focal fluid collection the gallbladder fossa. This is indeterminate but favors a postoperative seroma. A small biloma or developing abscess are also considered in differential diagnosis. HIDA scan: no biliary leakage CT Angio chest: negative for PE, pneumonia continue Cipro + Flagyl s/p Trigger point injection by Pain management service 01/25 similar pain continues ALT continues to decrease continue Cipro + Flagyl pain management service on board will defer Medrol dosepak for now in light of possible infected fluid collection in the gallbladder fossa monitor closely Generalized Anxiety continue paxil mood stable DVT ppx: Encourage ambulation, SCDs Hold Lovenox for possible procedures- start if no procedures by Gen Surg/GI Dispo: med/surg FULL CODE PCP: Linsey plan of care discussed with patient in detail and all questions answered he is understanding, agreeable, comfortable with the plan of care Admission and Anticipated Discharge Date Admission Date: January 22, 2024 Subjective Follow-up for abdominal pain, etc. Resting in bed, comfortable, not in distress Still having similar pain in the right upper quadrant No nausea or vomiting No other new symptom Review of Systems Review of Systems: all noted and negative except for above Physical Exam Physical Exam: General- oriented x 3, not in distress, speaks in sentences with no effort or accessory muscle use Eyes- anicteric Neck- no JVD Lungs- clear breath sounds bilaterally, no rales/wheezes Heart- normal rate, regular rhythm; no murmurs Abdomen- normal bowel sounds, nondistended, soft, mild RUQ tenderness Extremities- no pretibial edema, no calf tenderness Neuro- alert, oriented x 3; no gross focal neurologic deficits Skin- warm & dry Results & Data Results & Data Vital Signs (Past 12 Hours) Vital Signs Temp Pulse Resp BP Pulse Ox O2 Del Method 01/24/24 14:05 36.6 C 73 16 134/83 94 Room Air 01/24/24 07:57 36.8 C 70 142/89 H 99 Room Air all noted and reviewed including below
--- NOTE | 2024-01-25 07:06 | Surgery Progress Note ---
Date of Service January 25, 2024 Assessment & Plan (1) S/P cholecystectomy: Plan: Very bizarre presentation this gentleman from initial get go At this time GI is on board and I will agree if they decide to do an EGD possible an ERCP at their discretion May need to repeat CAT scan of the abdomen to reevaluate the subhepatic area Admission and Anticipated Discharge Date Admission Date: January 22, 2024 Subjective Still complaining of pain in the right side as it had been Nerve block helped a little but now the pain is continues to return Has not had a bowel movement since admission he is not nauseated appears to tolerate a liquid diet Physical Exam Physical Exam: Plain comfortable bed without any complaints at this time Abdominal exam benign except still tenderness in the right upper quadrant chest wall in nature Results & Data Vital Signs (Past 12 Hours) Vital Signs Temp Resp BP Pulse Ox O2 Del Method 01/24/24 20:25 36.6 C 16 144/79 H 98 Room Air
[2024-01-25 07:47] LABS: Basophils # (auto) 0.03 K/uL (0.00-0.20); Basophils % (auto) 0.4 %; Eosinophils # (auto) 0.15 K/uL (0.00-0.50); Eosinophils % (auto) 2.1 %; Hematocrit (blood only) 38.4 % (42.0-52.0); Hemoglobin 12.9 g/dl (14.0-18.0); Immature Granulocytes # (auto) 0.02 K/uL (0.01-0.20); Immature Granulocytes % (auto) 0.3 %; Lymphocytes # (auto) 1.44 K/uL (1.20-3.40); Mean Corpuscular Hgb Conc 33.6 g/dL (32.0-36.0); Mean Corpuscular Volume 83.5 fL (80.0-100.0); Mean Platelet Volume 9.6 fL (9.4-12.4); Monocytes # (auto) 0.55 K/uL (0.11-0.59); Monocytes % (auto) 7.6 %; Neutrophils % (auto) 69.6 %; Platelet Count 257 K/uL (130-400); RDW Coefficient of Variation 12.2 % (11.5-14.5); RDW Standard Deviation 37.1 fL (36.4-46.3); White Blood Count 7.19 K/ul (4.8-10.8)
[2024-01-25 08:11] LABS: BUN Creatinine Ratio 9.3 (10-20); Bilirubin Direct 0.1 mg/dl (0-0.2); Bilirubin,Total 0.4 mg/dl (0.2-1.0); Creatinine Clr Calc Pharmacy 104.9 ml/min; Est GFR (African American) 106.6 ml/min; Est GFR (Non-African American) 91.9 ml/min; Potassium 4.2 mmol/L (3.5-5.1); Total Protein 7.2 gm/dl (6.0-8.3)
--- NOTE | 2024-01-25 08:52 | Pain Management Progress Note ---
Date of Service January 25, 2024 Assessment & Plan (1) S/P cholecystectomy: (2) Post-op pain: Plan 1. Pain appears to be predominately myofascial based on physical exam findings. We discussed that trigger point injections could provide further benefit over the next 5-10 days. Monitor response. 2. Will progress baclofen to 10 mg 3 times daily scheduled dosing 3. Consider Medrol Dosepak-will defer to hospitalist service 4. Encouraged as needed use of Toradol with limited utilization of IV hydromorphone Admission and Anticipated Discharge Date Admission Date: January 22, 2024 Subjective Mr. Hartmann is a 48-year-old white male who continues to complain of right-sided abdominal pain which began within a few days of his recent laparoscopic cholecystectomy performed by Dr. Callahan on 01/12/2024. The patient reported the pain started on 01/15/2024. The pain has been sharp in the right abdominal location and fairly persistent since that time. Dr. Hagen performed trigger point injections into the right external oblique musculature yesterday at 2 sites. The patient reported no benefit from the trigger point injection procedures. His pain continues to be constant but increased with movement and deep breathing activities. Pain is localized to the right side of the abdomen with some minimal radiation towards the flank. He denies radiation to the groin, genital or lower extremities. He reports the only thing that is helpful is Dilaudid was provided approximately 2-3 hours of significant relief of pain. He denies change in pain with bowel movement or urination. Patient reported no side effects from the trigger point injections. Plan of care discussed with Dr. Catherine Hagen. Pain Assessment Pain Assessment Full Body Front + Back: 2 1. Right side of abdomen Pain scale - at its best (0-10): 4 Pain scale - at its worst (0-10): 8 Physical Exam 2 Physical Exam: General: Patient was lying quietly upon entering the room in no acute distress. Speech and thought process appropriate. Mood and affect appropriate. Cognition intact. Abdomen: Soft and nondistended. Well-healed incisional site status post laparoscopic cholecystectomy. Patient is tender over the entire right side of the abdominal region extending from the posterior axillary line through the midclavicular line. Pain is aggravated with any resisted sit up maneuvering. No evidence of edema, erythema or skin breakdown at site of trigger point injections. Lower extremities: Straight leg raising without increased pain. Resisted straight leg raising without increased pain. Neurological and cranial nerves grossly intact. Ambulation not witnessed.
[2024-01-25] MEDS: BACLOFEN 10 MG TAB PO SCH (09:06)
--- NOTE | 2024-01-25 19:43 | Hospitalist Progress Note ---
Date of Service January 25, 2024 Assessment & Plan (1) Post-op pain: (2) Hx laparoscopic cholecystectomy: Plan (1) Post-op pain: (2) Hx laparoscopic cholecystectomy: Plan This is a 48-year-old male has significant past medical history of anxiety who is being mated for management of postoperative right upper quadrant pain: Persistent right upper quadrant pain with mild elevation of LFTs Status post laparoscopic cholecystectomy on 01/12/[address] Callahan admit to medical consult general surgery --CT abd/pelvis: The gallbladder is surgically absent, with trace fluid and mild inflammation in the gallbladder fossa. No drainable fluid collection is seen. Given the history of recent cholecystectomy this may represent expected postsurgical change. A bile leak would be impossible to exclude, and the steri lity of this fluid cannot be assessed by imaging. Clinical and laboratory correlation will be essential. If there is strong clinical concern for a bile leak then a nuclear hepatobiliary scan could be considered. Broad spectrum IV antibiotics with Cipro and Flagyl IV APAP mild pain, IV toradol moderate pain, IV dilaudid severe pain NPO for now until seen by surgery IV LR @ 125cc/hr 01/23 Patient still reporting significant right upper quadrant pain AST/ALT elevated compared to yesterday MRCP ordered to rule out choledocholithiasis or obstruction: negative CT chest angiography ordered to rule out PE -discussed with patient and family regarding risk for acute kidney injury given he has received IV contrast yesterday, will continue with IV LR, hold Toradol Essential to rule out PE in this case in light of clinical presentation Patient and family verbalized understanding agreement with this plan Continue empiric ciprofloxacin plus Flagyl GI consulted Appreciate general surgery service input 01/24 pain about the same afebrile ALT continues to improve MRCP: no obstruction, A 2.2 x 1.3 cm focal fluid collection the gallbladder fossa. This is indeterminate but favors a postoperative seroma. A small biloma or developing abscess are also considered in differential diagnosis. HIDA scan: no biliary leakage CT Angio chest: negative for PE, pneumonia continue Cipro + Flagyl s/p Trigger point injection by Pain management service 01/25 similar pain continues ALT continues to decrease continue Cipro + Flagyl pain management service on board will defer Medrol dosepak for now in light of possible infected fluid collection in the gallbladder fossa monitor closely Generalized Anxiety continue paxil mood stable DVT ppx: Encourage ambulation, SCDs Hold Lovenox for possible procedures- start if no procedures by Gen Surg/GI Dispo: med/surg FULL CODE PCP: Linsey plan of care discussed with patient in detail and all questions answered he is understanding, agreeable, comfortable with the plan of care Admission and Anticipated Discharge Date Admission Date: January 22, 2024 Subjective ff up for RUQ pain, etc seen resting in bed, not in distress states RUQ pain still about the same as yesterday no nausea/vomiting, fever/chills no chest pain, dyspnea, palpitations, dizziness no other symptoms Review of Systems Review of Systems: all noted and negative except for above Physical Exam Physical Exam: General- oriented x 3, not in distress, speaks in sentences with no effort or accessory muscle use Eyes- anicteric Neck- no JVD Lungs- clear breath sounds bilaterally, no rales/wheezes Heart- normal rate, regular rhythm; no murmurs Abdomen- normal bowel sounds, nondistended, soft, nontender (+) pain on the abdominal wall lower RUQ / region, area of injection site Extremities- no pretibial edema, no calf tenderness Neuro- alert, oriented x 3; no gross focal neurologic deficits Skin- warm & dry Results & Data Results & Data Vital Signs (Past 12 Hours) Vital Signs Temp Pulse Resp BP Pulse Ox O2 Del Method 01/25/24 14:04 36.9 C 90 16 139/76 96 Room Air 01/25/24 11:00 36.5 C 71 14 138/78 98 Room Air all noted and reviewed including below
[2024-01-26 08:13] LABS: Basophils # (auto) 0.04 K/uL (0.00-0.20); Basophils % (auto) 0.5 %; Eosinophils # (auto) 0.17 K/uL (0.00-0.50); Eosinophils % (auto) 2.3 %; Hematocrit (blood only) 38.9 % (42.0-52.0); Hemoglobin 12.6 g/dl (14.0-18.0); Immature Granulocytes # (auto) 0.03 K/uL (0.01-0.20); Immature Granulocytes % (auto) 0.4 %; Lymphocytes # (auto) 1.59 K/uL (1.20-3.40); Lymphocytes % (auto) 21.6 %; Mean Corpuscular Hemoglobin 27.8 pg (25.0-34.0); Mean Corpuscular Hgb Conc 32.4 g/dL (32.0-36.0); Mean Corpuscular Volume 85.9 fL (80.0-100.0); Mean Platelet Volume 9.8 fL (9.4-12.4); Monocytes # (auto) 0.44 K/uL (0.11-0.59); Neutrophils # (auto) 5.08 K/uL (1.40-6.50); Neutrophils % (auto) 69.2 %; Platelet Count 273 K/uL (130-400); RDW Coefficient of Variation 12.3 % (11.5-14.5); RDW Standard Deviation 38.5 fL (36.4-46.3); Red Blood Count 4.53 M/uL (4.70-6.10); White Blood Count 7.35 K/ul (4.8-10.8)
--- NOTE | 2024-01-26 08:26 | Surgery Progress Note ---
Date of Service January 26, 2024 Assessment & Plan (1) Abdominal pain: Plan: He is improving I asked him about sending him home today and he would like to wait another day wants more to eat Will DC the IV fluid Dilaudid and antibiotic Pain management to address analgesics or muscle relaxants at discharge Admission and Anticipated Discharge Date Admission Date: January 22, 2024 Subjective This morning he states that he is beginning to feel better is sitting up in bed eating his breakfast which is liquid he has not had a bowel movement although he feels that he may be ready to go He thinks the muscle relaxant is helping him Physical Exam Physical Exam: Alert coherent no distress The abdomen is benign I can just barely touch his right lower rib cage in the starts guarding Results & Data Vital Signs (Past 12 Hours) Vital Signs Temp Pulse Resp BP Pulse Ox O2 Del Method 01/26/24 07:07 36.5 C 81 16 137/82 96 Room Air 01/25/24 20:59 36.5 C 16 154/87 H 96 Room Air
[2024-01-26 08:31] LABS: Albumin Level 3.8 gm/dl (3.4-5.0); BUN Creatinine Ratio 11.7 (10-20); Bilirubin Direct 0.1 mg/dl (0-0.2); Bilirubin,Total 0.2 mg/dl (0.2-1.0); Calcium 8.4 mg/dl (8.6-10.3); Creatinine Clr Calc Pharmacy 108.3 ml/min; Est GFR (African American) 110.7 ml/min; Est GFR (Non-African American) 95.5 ml/min; Total Protein 6.7 gm/dl (6.0-8.3)
--- NOTE | 2024-01-26 14:57 | Hospitalist Progress Note ---
Date of Service January 26, 2024 Assessment & Plan (1) Post-op pain: (2) Hx laparoscopic cholecystectomy: Plan (1) Post-op pain: (2) Hx laparoscopic cholecystectomy: Plan This is a 48-year-old male has significant past medical history of anxiety who is being mated for management of postoperative right upper quadrant pain: Persistent right upper quadrant pain with mild elevation of LFTs Status post laparoscopic cholecystectomy on 01/12/[address] Callahan admit to medical consult general surgery --CT abd/pelvis: The gallbladder is surgically absent, with trace fluid and mild inflammation in the gallbladder fossa. No drainable fluid collection is seen. Given the history of recent cholecystectomy this may represent expected postsurgical change. A bile leak would be impossible to exclude, and the steri lity of this fluid cannot be assessed by imaging. Clinical and laboratory correlation will be essential. If there is strong clinical concern for a bile leak then a nuclear hepatobiliary scan could be considered. Pt treated initially with bowel rest, IVF and antibiotics He was seen and eval by pain management with trigger point injection w/o relief LFTS down trended to normal MRCP: no obstruction, A 2.2 x 1.3 cm focal fluid collection the gallbladder fossa. This is indeterminate but favors a postoperative seroma. A small biloma or developing abscess are also considered in differential diagnosis. HIDA scan: no biliary leakage CT Angio chest: negative for PE, pneumonia Pain management on board, feels muscle relaxants helping him Gen surg d/c IV antibiotics, IV fluids and IV antibiotics Generalized Anxiety continue paxil mood stable DVT ppx: Encourage ambulation, SCDs Dispo: med/surg, pt diet advanced, off IV, hopeful to advance diet and possibly discharge tomorrow FULL CODE PCP: Linsey Pt was seen and examined in collaboration with Dr. Garcia, please see addendum A total of 46 minutes was spent coordinating, documenting, and providing care for this patient excluding time spent in the performance of separately billed services. This included personally viewing all current laboratories and imaging studies, medication reconciliation, outpatient chart review, and discussion with specialists. Admission and Anticipated Discharge Date Admission Date: January 22, 2024 Supervising Physician Co-Signing Physician Notes Patient seen and examined at bedside. Discussed with above provider He reports pain in right upper quadrant and lower quadrant. Diet advanced as per surgery Appreciate pain management recommendations Possible DC in a.m. if patient continues to tolerate diet I have reviewed the advanced practitioner's documentation, and I agree with, and take responsibility for the plan of care I spent a total of 15 minutes coordinating, documenting, and providing care for this patient excluding time spent in the performance of separately billed services. All of the aforementioned completed while collaborating with the assigned advanced practitioner for a full treatment plan Subjective Patient was seen and examined in 357. Postop cholecystectomy pain. He feels his right upper quadrant pain is improving, but is still present. He is currently rating a 7 out of 10. He has not had much in the way of solid food. He is tolerating full liquids. Surgery was in to see him. His IV fluids and is going to upgrade his diet. He does not want to be discharged home until he is tolerating food. He does not feel the trigger point injection helped. Review of Systems Review of Systems: All systems reviewed & are unremarkable except as noted in HPI & below Physical Exam Physical Exam: Gen: WD/WN, NAD, A&O x3 HEENT: Normocephalic, atraumatic, conjunctivae moist, sclerae anicteric, mucous membranes moist. Lung: Clear to Auscultation bilaterally, no wheezes/rales/rhonchi Heart: Regular rate, regular rhythm, no murmurs, rubs, or gallops Abdomen: Soft, TTP RUQ, ND +BS x 4 Extremities: No edema Skin: Warm, no rash, negative turgor. Results & Data Results & Data Vital Signs (Past 12 Hours) Vital Signs Temp Pulse Resp BP Pulse Ox O2 Del Method 01/26/24 07:07 36.5 C 81 16 137/82 96 Room Air Medications Administered Current Inpatient Medications Al Hydrox/Mg Hydrox/Simethicone (Aluminum/Magnesium Susp 30 Ml Udc) 30 ml PO Q6H PRN PRN Reason: Dyspepsia Stop: 02/21/24 18:11 Baclofen (Baclofen 10 Mg Tab) 10 mg PO TID THALIA Stop: 02/24/24 08:59 Last Admin: 01/26/24 13:05 Dose: 10 mg Lorazepam 0.5 mg/ Syringe 0.5 mls @ 2 mls/min IV Q4H PRN PRN Reason: Anxiety/Agitation Stop: 02/22/24 19:40 Ketorolac Tromethamine (Ketorolac Tromethamine 15 Mg/Ml Vial) 15 mg IV Q6H PRN PRN Reason: Pain Stop: 01/28/24 19:42 Last Admin: 01/26/24 08:41 Dose: 15 mg Lactobacillus Acidophilus (Advanced Probiotic 1250 Mg Capsule) 2 cap PO DAILY THALIA Stop: 02/23/24 08:59 Last Admin: 01/26/24 08:43 Dose: 2 cap Magnesium Hydroxide (Magnesium Hydroxide Susp 30 Ml Udc) 30 ml PO Q6H PRN PRN Reason: Constipation Stop: 02/21/24 18:11 Ondansetron HCl (Ondansetron Inj 2 Mg/Ml 2 Ml Vial) 4 mg IV Q6H PRN PRN Reason: Nausea Stop: 02/21/24 18:11 Last Admin: 01/23/24 20:39 Dose: 4 mg Paroxetine HCl (Paroxetine Hcl 20 Mg Tab) 40 mg PO QPM THALIA Stop: 02/21/24 20:59 Last Admin: 01/25/24 19:56 Dose: 40 mg Polyethylene Glycol (Polyethylene (Miralax) 17 Gm Pack) 17 gm PO DAILY PRN PRN Reason: Constipation Stop: 02/21/24 18:11 Last Admin: 01/23/24 10:41 Dose: 17 gm
--- NOTE | 2024-01-27 06:26 | Surgery Progress Note ---
Date of Service January 27, 2024 Assessment & Plan (1) Abdominal pain: Plan: Patient states he is ready to go home Since he has not moved his bowels yet but really does not want anything to help move his bowels he feels he is going to go once he gets home Regarding pain management at this time we will consider input from pain management clinic regarding p.o. meds I asked the patient return to our office in 1 week he states he already has an appointment All question answered From surgical point of view the patient can be discharged avoid any excess lifting no more than 10 pounds until seen in the office Admission and Anticipated Discharge Date Admission Date: January 22, 2024 Subjective Reports pain manageable less intense than it was before Tolerating a diet has not had a bowel movement yet positive flatus Physical Exam Physical Exam: Sleeping when I first walked in to examine him this morning Once awake he denies any significant pain Trocar sites are healing well the abdomen soft right chest wall discomfort on e xam is less intense less guarding Results & Data Vital Signs (Past 12 Hours) Vital Signs Temp Pulse Resp BP Pulse Ox O2 Del Method 01/26/24 20:15 36.7 C 70 18 136/80 97 Room Air
[2024-01-27 08:20] LABS: Basophils # (auto) 0.05 K/uL (0.00-0.20); Basophils % (auto) 0.6 %; Eosinophils # (auto) 0.35 K/uL (0.00-0.50); Eosinophils % (auto) 4.1 %; Hematocrit (blood only) 41.6 % (42.0-52.0); Immature Granulocytes # (auto) 0.05 K/uL (0.01-0.20); Immature Granulocytes % (auto) 0.6 %; Lymphocytes # (auto) 2.27 K/uL (1.20-3.40); Lymphocytes % (auto) 26.8 %; Mean Corpuscular Hemoglobin 28.1 pg (25.0-34.0); Mean Corpuscular Hgb Conc 33.7 g/dL (32.0-36.0); Mean Corpuscular Volume 83.4 fL (80.0-100.0); Monocytes # (auto) 0.69 K/uL (0.11-0.59); Monocytes % (auto) 8.2 %; Neutrophils # (auto) 5.05 K/uL (1.40-6.50); Neutrophils % (auto) 59.7 %; Platelet Count 313 K/uL (130-400); RDW Coefficient of Variation 12.5 % (11.5-14.5); RDW Standard Deviation 37.9 fL (36.4-46.3); Red Blood Count 4.99 M/uL (4.70-6.10); White Blood Count 8.46 K/ul (4.8-10.8)
[2024-01-27 08:59] LABS: Albumin Level 4.2 gm/dl (3.4-5.0); BUN Creatinine Ratio 14.2 (10-20); Bilirubin,Total 0.3 mg/dl (0.2-1.0); Calcium 9.1 mg/dl (8.6-10.3); Est GFR (African American) 95.7 ml/min; Est GFR (Non-African American) 82.6 ml/min; Potassium 4.1 mmol/L (3.5-5.1); Total Protein 7.4 gm/dl (6.0-8.3)
[2024-01-27] MEDS: MAGNESIUM HYDROXIDE SUSP 30 ML UDC PO PRN (10:09)
--- NOTE | 2024-01-27 12:05 | Discharge Summary ---
Discharge Summary Date of Service January 27, 2024 Notes For Next Care Provider Persistent right upper quadrant pain with mild elevation of LFTs Status post laparoscopic cholecystectomy on 01/12/2024 Medication Changes From Visit Baclofen 5mg TID PRN, ibuprofen 600mg TID PRN, protonix 40mg daily with nsaids Admission HPI Per Admitting Provider This is a 48-year-old male who has a significant past medical history of generalized anxiety disorder who presents to ED secondary to right upper quadrant abdominal pain. Of significance patient was recently hospitalized 01/09 to 01/13 secondary to abdominal pain. He initially was diagnosed with a partial small bowel obstruction and NG tube was placed. There was also question if patient was experiencing enteritis. He did have significant NG tube output and follow-up images ensured resolution of bowel obstruction. His NG tube was discontinued but patient continued to have right upper quadrant abdominal pain. He was seen and evaluated by general surgery who opted to take patient for diagnostic laparoscopy. During this procedure they found patient had acute cholecystitis and his gallbladder was removed. Pathology reports from this procedure reveal a gallbladder with chronic cholecystitis. He was seen and evaluated by general surgery and follow-up and was continuing to complain of pain. It was felt that pain was likely related to some fluid under the diaphragm. He was prescribed oral Bactrim for 1 week and also tramadol for pain control. He was seen in clinic on 01/19/2024 and states initially he started feeling improved until last evening. His pain in his right upper quadrant returned and started to increase. He states pain is located in right upper quadrant and wraps around to his right side of his back. It is constant but does wax and wane in severity. It is made worse with deep breathing and movement. Nothing seems to improve the pain. It does not seem to be aggravated with meals. He denies any shortness of breath, chest pain or coughing. He states he woke up this morning and he was drenched in sweat, but did not take his temperature. He otherwise denies any documented fever. He denies any chills, lightheadedness, dizziness, emesis, diarrhea, melena, hematochezia, dysuria, increased urgency or frequency with urination. He is moving bowels regularly and last moved his bowels yesterday which is normal for him. In ED patient remained hemodynamically stable. He did have a mild leukocytosis at 11k,, H&H was stable at 14.7 and 44.2 and urinalysis was negative. CT abdomen pelvis revealed a gallbladder that is surgically absent with trace fluid and mild inflammation of the gallbladder fossa but no drainable fluid collection noted. Pt's mom and dad are at bedside who also help elicit hx. Admission Exam Per Admitting Provider Constitutional: WD/WN, vitals as above, NAD, sitting up in bed, pleasant, conversing easily Head: Normocephalic, Atraumatic Eyes: PERRL, conjunctivae normal, anicteric sclerae ENMT: external ear and nose normal, oropharynx normal Neck: trachea midline, no thyromegaly normal visual inspection Respiratory: normal respiratory effort, lungs clear to auscultation, no wheeze, rales, rhonchi. Normal insp/exp effort, no accessory muscle use Cardiovascular: RRR, no murmur, no edema Vessels: no JVD or carotid bruit Chest: normal inspection of chest Abdomen: normal bowel sounds, soft, TTP RUQ, incisionx x 4 CDI, + rebound, no guarding or rigidity, no hepatosplenomegaly Musculoskeletal: no cyanosis or clubbing, extremities motor strength 5/5 Skin: no rashes, warm and dry normal turgor Neurologic: PERRL, EOMI, accommodation nl, no face palsy, no dysarthria CN's II-XI intact bilaterally and moves all extremities Psychiatric: A+Ox3, euthymic affect Lymphatic: no cervical or axillary lymphadenopathy : deferred Principal Dx & Hospital Course #1 = Principal Diagnosis (1) Post-op pain: (2) Hx laparoscopic cholecystectomy: Plan This is a 48-year-old male has significant past medical history of anxiety who is being mated for management of postoperative right upper quadrant pain: Persistent right upper quadrant pain with mild elevation of LFTs Status post laparoscopic cholecystectomy on 01/12/[address] abd/pelvis: The gallbladder is surgically absent, with trace fluid and mild inflammation in the gallbladder fossa. No drainable fluid collection is seen. Given the history of recent cholecystectomy this may represent expected postsurgical change. A bile leak would be impossible to exclude, and the sterility of this fluid cannot be assessed by imaging. Clinical and laboratory correlation will be essential. If there is strong clinical concern for a bile leak then a nuclear hepatobiliary scan could be considered. Pt treated initially with bowel rest, IVF and antibiotics Seen and eval by pain management with trigger point injection without relief LFTS down trended to normal MRCP: no obstruction, A 2.2 x 1.3 cm focal fluid collection the gallbladder fossa. This is indeterminate but favors a postoperative seroma. A small biloma or developing abscess are also considered in differential diagnosis. HIDA scan: no biliary leakage CT Angio chest: negative for PE, pneumonia Pain management on board, feels muscle relaxants helping him Gen surg d/c IV antibiotics, IV fluids and IV antibiotics. Scheduled to follow up with Dr. Callahan in 1 week Continue 5mg Baclofen TID PRN, ibuprofen TID PRN, weight limit of 10 lbs until re-evaluated, per surgery Generalized Anxiety Mood stable. Continue Paxil Discharge Exam Gen: WD/WN, NAD, resting in bed, A&Ox3 HEENT: Normocephalic, atraumatic, conjunctivae moist, sclerae anicteric, mucous membranes moist Lung: Clear to Auscultation bilaterally, no wheezes/rales/rhonchi Heart: Regular rate, regular rhythm, no murmurs, rubs, or gallops Abdomen: Soft, TTP of R abdomen distal to lateral ribs, ND +BS x 4 Extremities: no edema Skin: Warm, no rash Updated Medication List Medication Instructions Recorded Confirmed Type paroxetine HCl 40 mg tablet (Paxil) 40 mg PO QPM 01/08/24 01/22/24 History tramadol 50 mg tablet 50 mg PO Q8H PRN pain #20 tabs 01/19/24 01/22/24 Rx baclofen 5 mg tablet 5 mg PO Q8H PRN muscle spasm #15 01/27/24 Rx tabs ibuprofen 600 mg tablet 600 mg PO Q8H PRN pain #21 tabs 01/27/24 Rx pantoprazole 40 mg tablet,delayed 40 mg PO DAILY #21 tabs 01/27/24 Rx release (Protonix) Hospital Stay Data Consultations 01/22/24 15:16 ED Decision to Admit Stat 01/22/24 15:47 Consult General Surgery Routine 01/23/24 11:33 Consult Gastroenterology Routine 01/24/24 07:38 Consult Pain Management Routine Diagnostic Imagining Performed 01/22/24 13:44 CT abd pelvis IV con only Stat 01/23/24 11:35 CT angio chest PE protocol Stat 01/23/24 11:44 MR MRCP Routine Pending Results Patient Have Any Pending Studies at Discharge: No Discharge Instructions Given to Patient (Per Discharging Provider) MEDICATION CHANGES: Baclofen 5mg TID PRN, ibuprofen 600mg TID PRN for abdominal pain and daily protonix while on NSAIDs SUMMARY OF TEST RESULTS: You were admitted to hospital secondary to abdominal pain. CT abd/pelvis: The gallbladder is surgically absent, with trace fluid and mild inflammation in the gallbladder fossa. No drainable fluid collection is seen. Given the history of recent cholecystectomy this may represent expected postsurgical change. A bile leak would be impossible to exclude, and the sterility of this fluid cannot be assessed by imaging. Clinical and laboratory correlation will be essential. If there is strong clinical concern for a bile leak then a nuclear hepatobiliary scan could be considered. HIDA scan: no biliary leakage CT Angio chest: negative for PE, pneumonia PENDING TEST RESULTS: None RECOMMENDATIONS FOR FOLLOW-UP: Follow up with PCP and general surgery as scheduled above Per surgery, avoid any excess lifting no more than 10 pounds until seen in the office Continue medication regimen as scheduled aside from changes noted above OTHER INSTRUCTIONS: Seek medical attention if you have: * temperature above 101 * chest pain or trouble breathing * abdominal pain, nausea, vomiting * diarrhea, dark stools or bloody stools * any unanswered questions or concerns Call 911 if symptoms are severe. Please take good care of yourself. Call if you have any questions or problems. You can reach a [facility] 24 hours a day by calling [phone]. Kenyatta Camarena PA-C [facility] Hospitalist Total Time Total Time Spent Total Time Spent (In Minutes): 45 Supervising Physician Co-Signing Physician Notes Patient seen and examined at bedside. Discussed with above provider Patient tolerated normal diet. He has not required pain medication in the last 24 hours. Patient discharged home with instruction to follow with PCP and surgery. I have reviewed the advanced practitioner's documentation, and I agree with, and take responsibility for the plan of care I spent a total of 15 minutes coordinating, documenting, and providing care for this patient excluding time spent in the performance of separately billed services. All of the aforementioned completed while collaborating with the assigned advanced practitioner for a full treatment plan
== END 2024-01-27 13:50 | disposition home or self-care (01) | DRG 948 ==
LOC: ED 12:13 → 3W 15:47 → SUATTDRO 15:47 → 3W 18:12

== ENCOUNTER 2025-10-17 11:40 | Inpatient (IN) ==
--- NOTE | 2025-10-17 12:28 | Emergency Department Note ---
Impression & Plan CARLSON (dyspnea on exertion) ED Provider Note NAME: DENIA WALL AGE: 49 SEX: M : 1975 ARRIVES VIA: Walk-In INFORMANT: Patient, ED PROVIDER(S): Anival Tobias MD CHIEF COMPLAINT: Chest pain, shortness of breath MEDICAL DECISION MAKING: Patient presents with the above. IV was established and blood work was obtained along with an EKG. Patient was ordered IV morphine and CT angiography of the chest ordered. Patient's EKG no evidence of obvious ischemia. White count of 10.8. Hemoglobin and platelet count are unremarkable with normal kidney function. Mild hypokalemia 3.4. Initial troponin negative. BioFire negative. The patient CT angiography of the chest is negative. Patient still feeling dyspneic. Patient reportedly had a rash of the left shoulder. This was after the patient did have the CT of the chest completed. Patient was ordered IV methylprednisolone as well as IV Pepcid. Patient still dyspneic on exertion. Unclear etiology. Patient was ordered a BioFire and this was negative. He was also ordered a breathing treatment. Upon subsequent reassessment still not improving and is dyspneic. Patient also with occasional tachypnea with exertion. Given these concerns i did speak with the on-call hospitalist service and patient was admitted. Discussion w/ other healthcare providers: Tamar Wolfe PA-C and Dr. King inpatient medicine service Prior /Outside records reviewed: I reviewed part of an operative report from September 24 from Sohail Salguero and Dr. Carty. The patient was treated for left shoulder bicipital tendinitis. Differential diagnosis: Reactive airway disease, pneumonia, pneumothorax, COPD, CHF, ACS, pulmonary embolism, musculoskeletal, GERD as well as other pathologies were considered. Diagnostics, as interpreted by me: ECG: Normal sinus rhythm, rate of 80, normal intervals, normal axis no ST elevations. Cardiac monitoring: An order was placed for continuous cardiac monitoring. The monitor shows a rate of 82 with sinus rhythm. Patient was placed on pulse oximetry Medical decision rules: None Imaging studies: I informally interpreted the patient's chest x-ray does not show obvious pneumonia or pneumothorax with formal report to follow. HPI: Patient presents due to concern for shortness of breath. The patient reports that he began having this intermittently yesterday and was more constant today. He called the office and was referred here. Patient states that he does have pleuritic chest pain but only with deep breaths. Patient did have a shoulder surgery completed by Dr. Carty on September 24. He denies any leg swelling or calf pain. No prior history of DVT or PE no history of heart disease. He denies any tobacco use. Patient does report recent steroid use. He has had no abdominal pain nausea or vomiting. PAST MEDICAL HISTORY: See Below PAST SURGICAL HISTORY: See Below SOCIAL HISTORY: See Below HOME MEDICATIONS: See Below ALLERGIES: See Below VITALS: See Below PHYSICAL EXAMINATION: GENERAL: NAD, non-toxic. EYE EXAM: Normal conjunctiva. PERRL, no anisocoria and EOM's grossly intact w/o pain. OROPHARYNX: Moist mucus membranes, grossly normal dentition. NECK: Trachea midline, no stridor. LUNGS: Clear to auscultation. Normal chest wall mechanics. HEART: NSR, no MRG. ABDOMEN: Abdomen soft, non-tender, no masses, no rebound or guarding. BACK: No CVA TTP. SKIN: No rashes and no bruising. UPPER EXTREMITIES: Upper extremities are grossly normal. Well-healed arthroscopic incisional sites noted over the left shoulder. LOWER EXTREMITIES: Grossly normal, no edema. Negative Homans' sign bilaterally. NEURO EXAM: Awake and alert, follows commands, no obvious facial asymmetry, normal speech, moves all 4 extremities. Past Med/Surg History Problem List CARLSON (dyspnea on exertion) (Acute) Acute bronchitis (Acute) Night sweats Chills S/P cholecystectomy (Acute) Nausea & vomiting (Acute) Abdominal pain (Acute) Post-op pain Acute cholecystitis Nausea & vomiting (Acute) Small bowel obstruction (Acute) Diverticulitis (Acute) No significant past medical history (Chronic) History of shoulder surgery (Chronic) History of appendectomy (Chronic) Medical History Arthritis Post traumatic stress disorder Anxiety Surgical History S/P right knee arthroscopy H/O arthroscopy of shoulder right History of colonoscopy History of appendectomy [place] teeth removed Hx laparoscopic cholecystectomy (01/12/24) Diagnostic Laparoscopy, Laparoscopic Cholecystectomy(Not Applicable) - Donavan Callahan DO Family History Other Family history non-contributory No family history of adverse response to anesthesia Social History Smoking Status: Never smoker Second Hand Exposure: No; Do You Dip or Chew Tobacco: No; Hx Alcohol Use: Yes Hx Substance Use: No Preferred Language: Croatian Communication Ability: Effective Curriculum Assistant Required: No Beliefs That Will Affect Care: None Current Living Situation: Alone Current Living Situation Comment: Girlfriend. Feels Safe at Home: Yes Assistive Devices: None Allergies Allergies Allergy/AdvReac Type Severity Reaction Status Date / Time Penicillins Allergy Intermediate Hives Verified 10/02/25 23:21 IVP dye AdvReac Rash Uncoded 10/17/25 17:33 Home Meds Home Medications Medication Instructions Recorded Confirmed duloxetine 20 mg capsule,delayed 20 mg PO QAM 09/17/25 10/17/25 release prazosin 2 mg capsule 4 mg PO HS 09/17/25 10/17/25 diclofenac sodium 75 mg 75 mg PO BID 10/02/25 10/17/25 tablet,delayed release Results & Data (ED) Vital Signs Vital Signs - 24 hr 10/17/25 11:42 10/17/25 11:52 10/17/25 12:00 Temperature 36.5 C Temperature Source Temporal Artery Scan Pulse Rate 92 H 84 88 Pulse Rate [Apical] Pulse Rate from SpO2 Sensor 87 Respiratory Rate 20 27 H Blood Pressure 142/101 H 175/106 H Blood Pressure [Left Arm] Blood Pressure Mean 114 129 Blood Pressure Mean [Left Arm] Pulse Oximetry 100 97 Oxygen Delivery Method Room Air Room Air Sepsis Recent Fever Within 48 Hours No Sepsis New/Unexplained Change in Mental Status N/A Sepsis Action Taken by Nursing No Action Required 10/17/25 12:30 10/17/25 12:47 10/17/25 12:47 Temperature Temperature Source Pulse Rate 80 Pulse Rate [Apical] 81 Pulse Rate from SpO2 Sensor 83 Respiratory Rate 25 H 21 Blood Pressure 181/93 H Blood Pressure [Left Arm] 181/93 H Blood Pressure Mean 122 Blood Pressure Mean [Left Arm] 122 Pulse Oximetry 99 98 Oxygen Delivery Method Room Air Room Air Sepsis Recent Fever Within 48 Hours Sepsis New/Unexplained Change in Mental Status Sepsis Action Taken by Nursing 10/17/25 13:00 10/17/25 13:30 10/17/25 14:00 Temperature Temperature Source Pulse Rate 85 84 82 Pulse Rate [Apical] Pulse Rate from SpO2 Sensor 84 83 80 Respiratory Rate 21 17 25 H Blood Pressure 147/104 H 144/92 H 159/104 H Blood Pressure [Left Arm] Blood Pressure Mean 118 109 122 Blood Pressure Mean [Left Arm] Pulse Oximetry 98 97 96 Oxygen Delivery Method Room Air Room Air Sepsis Recent Fever Within 48 Hours Sepsis New/Unexplained Change in Mental Status Sepsis Action Taken by Nursing 10/17/25 14:30 10/17/25 15:06 10/17/25 15:30 Temperature Temperature Source Pulse Rate 81 84 95 H Pulse Rate [Apical] Pulse Rate from SpO2 Sensor 80 84 94 H Respiratory Rate 22 25 H 22 Blood Pressure 155/95 H 161/106 H 147/94 H Blood Pressure [Left Arm] Blood Pressure Mean 115 124 111 Blood Pressure Mean [Left Arm] Pulse Oximetry 96 99 97 Oxygen Delivery Method Room Air Room Air Room Air Sepsis Recent Fever Within 48 Hours Sepsis New/Unexplained Change in Mental Status Sepsis Action Taken by Nursing 10/17/25 15:54 Temperature Temperature Source Pulse Rate 93 H Pulse Rate [Apical] Pulse Rate from SpO2 Sensor Respiratory Rate Blood Pressure Blood Pressure [Left Arm] Blood Pressure Mean Blood Pressure Mean [Left Arm] Pulse Oximetry Oxygen Delivery Method Sepsis Recent Fever Within 48 Hours Sepsis New/Unexplained Change in Mental Status Sepsis Action Taken by [facility] Medications Current Medication List: was personally reviewed by me Laboratory Data Attestation: I reviewed the patient's lab results. 10/17/25 12:07 10/17/25 12:07 Lab Results 10/17/25 10/17/25 10/17/25 Range/Units 12:07 13:55 Unknown WBC 10.88 H (4.8-10.8) K/ul RBC 5.26 (4.70-6.10) M/uL Hgb 14.9 (14.0-18.0) g/dL Hct 44.3 (42.0-52.0) % MCV 84.2 (80.0-100.0) fL MCH 28.3 (25.0-34.0) pg MCHC 33.6 (32.0-36.0) g/dL RDW Std Deviation 41.1 (36.4-46.3) fL RDW Coeff of Kym 13.2 (11.5-14.5) % Plt Count 232 (130-400) K/uL MPV 10.3 (9.4-12.4) fL Immature Gran % (Auto) 1.2 % Neut % (Auto) 47.7 % Lymph % (Auto) 41.1 % [place] % (Auto) 8.3 % Eos % (Auto) 1.0 % Baso % (Auto) 0.7 % Neut # (Auto) 5.19 (1.40-6.50) K/uL Lymph # (Auto) 4.47 H (1.20-3.40) K/uL [place] # (Auto) 0.90 H (0.11-0.59) K/uL Eos # (Auto) 0.11 (0.00-0.50) K/uL Baso # (Auto) 0.08 (0.00-0.20) K/uL Immature Gran # (Auto) 0.13 (0.01-0.20) K/uL Sodium 139 (136-145) mmol/L Potassium 3.4 L (3.5-5.1) mmol/L Chloride 102 (98-107) mmol/L Carbon Dioxide 28 (21-32) mmol/L Anion Gap 9 (3-11) BUN 14 (6-23) mg/dl Creatinine 1.10 (0.6-1.4) mg/dl Est Cr Clr Drug Dosing 96.1 ml/min eGFR 82.29 BUN/Creatinine Ratio 12.7 (10-20) Glucose 100 H (70-99(Fasting)) mg/dl Calcium 9.0 (8.6-10.3) mg/dl Total Bilirubin 0.5 (0.2-1.0) mg/dl AST 16 (13-39) U/L ALT 41 (7-52) U/L Alkaline Phosphatase 60 (34-104) U/L Troponin I High Sens 6.1 5.1 (0-20) pg/ml Total Protein 7.3 (6.0-8.3) gm/dl Albumin 4.2 (3.4-5.0) gm/dl Globulin 3.1 (2.5-4.0) gm/dl Albumin/Globulin Ratio 1.4 (0.9-2) Lipase 32 (11-82) U/L Adenovirus (PCR) Not Detected (NotDetected) B. pertussis DNA (PCR) Not Detected (NotDetected) B.parapertussis DNA PCR Not Detected (NotDetected) C. pneumoniae DNA (PCR) Not Detected (NotDetected) Coronavirus OC43 (PCR) Not Detected (NotDetected) Coronavirus HKU1 (PCR) Not Detected (NotDetected) Coronavirus 229E (PCR) Not Detected (NotDetected) SARS-CoV-2 (PCR) Not Detected (NotDetected) Coronavirus NL63 (PCR) Not Detected (NotDetected) Human Metapneumovir PCR Not Detected (NotDetected) Influenza Type A (PCR) Not Detected (NotDetected) Influenza Type B (PCR) Not Detected (NotDetected) M. pneumoniae (PCR) Not Detected (NotDetected) Parainfluenza 1 (PCR) Not Detected (NotDetected) Parainfluenza 2 (PCR) Not Detected (NotDetected) Parainfluenza 3 (PCR) Not Detected (NotDetected) Parainfluenza 4 (PCR) Not Detected (NotDetected) RSV (PCR) Not Detected (NotDetected) Entero/Rhino (PCR) Not Detected (NotDetected) Administered Medications Discontinued Medications Albuterol (Albut/Ipratrop 3mg/0.5mg Neb 3 Ml Vial) 3 ml NEB NOW STA; Protocol Stop: 10/17/25 15:03 Last Admin: 10/17/25 15:12 Dose: 3 ml Documented By: ankush Sodium Chloride (Nss) 500 mls @ 999 mls/hr IV .Q31M STA Stop: 10/17/25 12:53 Last Infusion: 10/17/25 13:26 Dose: Infused Documented By: ankush Admin: 10/17/25 12:46 Dose: 999 mls/hr Documented By: ELIO Famotidine (Pepcid 20mg Iv Push) 20 mg in 5 mls @ 2.5 mls/min IV NOW STA Stop: 10/17/25 13:36 Last Admin: 10/17/25 13:50 Dose: 2.5 mls/min Documented By: ankush Ioversol (Optiray 320 125ml) 119 ml IV ONCE ONE Stop: 10/17/25 12:40 Last Admin: 10/17/25 12:40 Dose: 119 ml Documented By: IZAIAH Methylprednisolone (Methylprednisolone 125 Mg/2 Ml Vial) 60 mg IV NOW STA Stop: 10/17/25 13:36 Last Admin: 10/17/25 13:49 Dose: 60 mg Documented By: ankush Morphine Sulfate (Morphine Sulfate 4 Mg/Ml 1 Ml Carp\Vial) 4 mg IV NOW STA Stop: 10/17/25 12:24 Last Admin: 10/17/25 12:46 Dose: 4 mg Documented By: ELIO Imaging Data Radiologist's Impression: Chest CTA 10/17/25 12:23 CT ANGIOGRAM OF THE CHEST CLINICAL HISTORY: Chest pain. Evaluate for pulmonary embolus. COMPARISON STUDY: Chest CT January 23, 2024. Chest radiograph performed earlier today. TECHNIQUE: Following the IV administration of 119 cc of Optiray 320, CT angiogram of the chest was performed from the upper abdomen to the thoracic inlet utilizing the pulmonary embolus protocol. Images are reviewed in the axial, sagittal, and coronal planes. 3-D MIPS images are created and assessed. IV contrast was administered without complication. A dose lowering technique was utilized adhering to the principles of ALARA. CT DOSE: 869.45 mGy.cm FINDINGS: Thyroid: Unremarkable. Thoracic aorta: The caliber of the thoracic aorta is normal. No dissection is seen. Pulmonary vasculature: The caliber of the pulmonary trunk is normal. There are no filling defects identified in main, lobar, or segmental pulmonary branches to suggest pulmonary embolus. Heart: The size of the heart is normal. There is no pericardial effusion. Lungs and pleural spaces: There is no consolidation to suggest pneumonia. There is no pneumothorax or pleural effusion. A 4 mm right middle lobe pulmonary nodule on image 67 of 217 is unchanged since initial chest CT of October 03, 2020. This is benign given stability. Mediastinum: There is no mediastinal lymphadenopathy. Sruthi: There is no hilar adenopathy. Axillae: There is no axillary lymphadenopathy. Upper abdomen: A small 1 cm enhancing segment 2 hepatic lesion on image 38 of 217. Remains unchanged. This is likely benign. There is probable hepatic steatosis. Skeletal structures: No lytic or blastic bony lesions are seen. IMPRESSION: 1. No pulmonary emboli identified. 2. No acute intrathoracic findings. ACT 112: Negative or not required by law. Electronically signed by: Kaden Cantu M.D. 10/17/2025 12:49 PM Chest X-Ray 10/17/25 12:23 XR chest 1V portable CLINICAL HISTORY: Chest pain, nonspecific COMPARISON STUDY: 10/02/2025 FINDINGS: Stable mild cardiomegaly without pulmonary vascular congestion. No consolidation or pleural effusion seen. No pneumothorax. IMPRESSION: No acute findings. ACT 112: Negative or not required by law. Electronically signed by: Anival Castillo M.D. 10/17/2025 12:34 PM Discharge Plan Visit Data Chief Complaint: Abnormal Labs/Diagnostic Testing Stated Complaint: DOC SENT CT SCAN POSSIBLE BLOOD CLOT ED Provider: Anival Tobias Discharge Problem: CARLSON (dyspnea on exertion) Patient Disposition: Admitted As Inpatient Condition: Good Forms Stand Alone Forms: [facility] Prescriptions Prescriptions: No Action prazosin 2 mg Capsule 4 mg PO HS duloxetine 20 mg Capsule,Delayed Release(Dr/Ec) 20 mg PO QAM diclofenac sodium 75 mg Tablet,Delayed Release (Dr/Ec) 75 mg PO BID Referrals Referrals: Mane Stiles MD [Primary Care Provider] -
--- NOTE | 2025-10-17 12:36 | XRay Report ---
XR chest 1V portable CLINICAL HISTORY: Chest pain, nonspecific COMPARISON STUDY: 10/02/2025 FINDINGS: Stable mild cardiomegaly without pulmonary vascular congestion. No consolidation or pleural effusion seen. No pneumothorax. IMPRESSION: No acute findings. ACT 112: Negative or not required by law. Electronically signed by: Anival Castillo M.D. 10/17/2025 12:34 PM
[2025-10-17 12:37] LABS: Hematocrit (blood only) 44.3 % (42.0-52.0); Hemoglobin 14.9 g/dL (14.0-18.0); Immature Granulocytes # (auto) 0.13 K/uL (0.01-0.20); Immature Granulocytes % (auto) 1.2 %; Mean Corpuscular Hemoglobin 28.3 pg (25.0-34.0); Mean Corpuscular Volume 84.2 fL (80.0-100.0); Platelet Count 232 K/uL (130-400); RDW Standard Deviation 41.1 fL (36.4-46.3); Red Blood Count 5.26 M/uL (4.70-6.10); White Blood Count 10.88 K/ul (4.8-10.8)
[2025-10-17] MEDS: OPTIRAY 320 125ml IV ONE (12:40)
[2025-10-17] MEDS: MoRPHine SULFATE 4 MG/ML 1 ML CARP\\VIAL IV STA (12:46)
[2025-10-17] MEDS: SODIUM CHLORIDE 0.9% 500 ML IV STA (12:46)
--- NOTE | 2025-10-17 12:52 | CT Scan Report ---
CT ANGIOGRAM OF THE CHEST CLINICAL HISTORY: Chest pain. Evaluate for pulmonary embolus. COMPARISON STUDY: Chest CT January 23, 2024. Chest radiograph performed earlier today. TECHNIQUE: Following the IV administration of 119 cc of Optiray 320, CT angiogram of the chest was pe rformed from the upper abdomen to the thoracic inlet utilizing the pulmonary embolus protocol. Images are reviewed in the axial, sagittal, and coronal planes. 3-D MIPS images are created and assessed. I V contrast was administered without complication. A dose lowering technique was utilized adhering to the principles of ALARA. CT DOSE: 869.45 mGy.cm FINDINGS: Thyroid: Unremarkable. Thoracic aorta: The caliber of the thoracic aorta is normal. No dissection is seen. Pulmonary vasculature: The caliber of the pulmonary trunk is normal. There are no filling defects apolonia ntified in main, lobar, or segmental pulmonary branches to suggest pulmonary embolus. Heart: The size of the heart is normal. There is no pericardial effusion. Lungs and pleural spaces: There is no consolidation to suggest pneumonia. There is no pneumothorax or pleural effusion. A 4 mm right middle lobe pulmonary nodule on image 67 of 217 is unchanged since in itial chest CT of October 03, 2020. This is benign given stability. Mediastinum: There is no mediastinal lymphadenopathy. Sruthi: There is no hilar adenopathy. Axillae: There is no axillary lymphadenopathy. Upper abdomen: A small 1 cm enhancing segment 2 hepatic lesion on image 38 of 217. Remains unchanged. This is likely benign. There is probable hepatic steatosis. Skeletal structures: No lytic or blastic bony lesions are seen. IMPRESSION: 1. No pulmonary emboli identified. 2. No acute intrathoracic findings. ACT 112: Negative or not required by law. Electronically signed by: Kaden Cantu M.D. 10/17/2025 12:49 PM
[2025-10-17 12:55] LABS: Alanine Aminotransferase 41.0 U/L (7-52); Albumin Globulin Ratio 1.4 (0.9-2); Albumin Level 4.2 gm/dl (3.4-5.0); Alkaline Phosphatase 60.0 U/L (34-104); Anion Gap 9.0 (3-11); Bilirubin,Total 0.5 mg/dl (0.2-1.0); Blood Urea Nitrogen 14.0 mg/dl (6-23); Calcium 9.0 mg/dl (8.6-10.3); Carbon Dioxide 28.0 mmol/L (21-32); Chloride 102.0 mmol/L (98-107); Creatinine Clr Calc Pharmacy 96.1 ml/min; Globulin 3.1 gm/dl (2.5-4.0); Glucose 100.0 mg/dl (70-99(Fasting)); Lipase 32.0 U/L (11-82); Potassium 3.4 mmol/L (3.5-5.1); Sodium 139.0 mmol/L (136-145); Total Protein 7.3 gm/dl (6.0-8.3)
[2025-10-17] MEDS: FAMOTIDINE 20MG IV PUSH 20 MG/5 ML SYR IV STA (13:50)
[2025-10-17] MEDS: ALBUT/IPRATROP 3MG/0.5MG NEB 3 ML VIAL NEB STA (15:12)
[2025-10-17 16:33] LABS: Chlamydia pneumoniae PCR Not Detected (NotDetected); Coronavirus 229E PCR Not Detected (NotDetected); Coronavirus CoV-2 (COVID19)PCR Not Detected (NotDetected); Coronavirus HKU1 PCR Not Detected (NotDetected); Coronavirus NL63 PCR Not Detected (NotDetected); Coronavirus OC43PCR Not Detected (NotDetected); Human Metapneumovirus PCR Not Detected (NotDetected); Parainfluenza Virus 1 PCR Not Detected (NotDetected); Parainfluenza Virus 2 PCR Not Detected (NotDetected); Parainfluenza Virus 3 PCR Not Detected (NotDetected); Parainfluenza Virus 4 PCR Not Detected (NotDetected); Respiratory Syncytial VirusPCR Not Detected (NotDetected); Rhinovirus/Enterovirus PCR Not Detected (NotDetected)
--- NOTE | 2025-10-17 17:04 | History & Physical Report ---
Date of Service October 17, 2025 Assessment & Plan (1) Dyspnea: Plan: #Reactive airway Patient is 49-year-old male with PMH anxiety, PTSD presented to ER with c/o ongoing SOB, cough, wheezing, chills, sweats x 2 weeks. Outpatient treated with prednisone, Levaquin, albuterol. reports some improvement with prednisone but SOB worsened after completed course. Today in ER afebrile, P: 92, R: 20, BP 142/101, 100% on room air. WBC: 10.8, troponin negative x 2. respiratory biofire panel is negative CTA chest: No pulmonary emboli identified. No acute intrathoracic findings. ER reports patient was dyspneic with exertion throughout ER with no noted hypoxia. ER physician reports patient had slight rash to left shoulder after CTA and was given methylprednisolone 60 mg, famotidine 20 mg IV. (Added rash on allergy list to possible IVP dye) In ER given duoneb obtain blood cultures Duonebs Solumedrol Trend troponin Echo CBC, BMP in am #Right flank pain #Right back pain Obtain CT abd/pelvis and CT lumbar spine to r/o abdominal and lumbar etiology. DDx: kidney stone, spine fracture, musculoskeletal etiology Obtain UA Scheduled Tylenol, Lidocaine patch, Toradol, oxycodone prn mod-severe pain #Elevated Blood pressure reading BP noted to be elevated in ER 142/101, 161/106 Repeat BP 135/88 at 17:30 Monitor blood pressure #Anxiety #PTSD Continue home duloxetine, prazosin DVT Prophylaxis Lovenox SQ Admit med tele Full Code as per discussion with pt Follows with Dr Stiles for routine care Pt was seen and care coordinated with Dr King. See addendum I spent a total of 68 minutes reviewing notes, outpatient records, labs, medication, coordinating, documenting and providing care for this patient excluding time spent in the performance of separately billed services and excluding time spent by another provider/QHP. History of Present Illness Chief Complaint: SOB Primary Care Provider: Mane Stiles MD Patient is 49-year-old male with PMH anxiety, PTSD presented to ER with c/o ongoing SOB. Per inpatient chart review s/p left shoulder arthroscopy on 09/24/[address] Carty. Patient reports approximately one week later he started with nonproductive cough, SOB that is worse with exertion, wheezing, lightheadedness, sweats and chills, right low back pain. Per chart review he was seen at [facility] ER on 10/02/25 for shortness of breath, cough, tactile fever, lightheadedness. At that time WBC: 12, Hgb: 15, negative D-dimer and troponin, negative COVID 19, RSV and influenza. CXR with peribronchial thickening, Per ER note was noted to have wheezing on exam and was discharged on [place], prednisone. Per chart review seen at PCPs office 10/04/2025 for ER follow-up and had continued symptoms and was started on Levaquin x 10 days. Seen at PCPs office today for continued shortness of breath and wheezing, tactile fever. Today Outpatient CXR impression: No pleural effusion or pneumothorax. He was referred to ER for concern possible PE. Patient reports his shoulder is doing well and not having pain. Patient reports felt less short of breath while he was taking prednisone. Reports once finished prednisone he feels more short of breath. Has continued cough and denies hemoptysis. Denies chest pain. He reports ongoing intermittent chills and sweats and lightheaded with ambulating. Reports continues with right low back pain and right flank pain that is nonradiating and describes it as stabbing and constant pain. Denies any improvement with back pain throughout course treatment. Denies hemoptysis. Reports works for a [employer]. Denies any known exposures. Denies any known injury or history back pain. Has not been taking his temperature at home. Denies N/V/D/C, COLIN, syncope, vision changes, neck pain, orthopnea, palpitations, sore throat, rhinorrhea, abdominal pain, paresthesias, extremity weakness, extremity edema, rashes, dysuria, hematuria, urinary frequency, urinary retention. Discussed patient with ER provider reports vitals stable and no hypoxia. Reports patient was dyspneic with exertion throughout ER with no noted hypoxia. ER physician reports patient had slight rash to left shoulder after CTA and was given methylprednisolone 60 mg, famotidine 20 mg IV. Patient was also given albuterol neb to assess if would help with dyspnea/wheezing Allergies Allergy/AdvReac Type Severity Reaction Status Date / Time Penicillins Allergy Intermediate Hives Verified 10/02/25 23:21 IVP dye AdvReac Rash Uncoded 10/17/25 17:33 Home Medications Medication Instructions Recorded Confirmed Type duloxetine 20 mg capsule,delayed 20 mg PO QAM 09/17/25 10/17/25 History release prazosin 2 mg capsule 4 mg PO HS 09/17/25 10/17/25 History albuterol sulfate 90 mcg/actuation 2 puff inhalation Q6H PRN 10/17/25 10/17/25 History aerosol inhaler Shortness Of Breath Or Wheezing Past Med/Surg History Problem List Dyspnea CARLSON (dyspnea on exertion) (Acute) Acute bronchitis (Acute) Night sweats Chills S/P cholecystectomy (Acute) Nausea & vomiting (Acute) Abdominal pain (Acute) Post-op pain Acute cholecystitis Nausea & vomiting (Acute) Small bowel obstruction (Acute) Diverticulitis (Acute) No significant past medical history (Chronic) History of shoulder surgery (Chronic) History of appendectomy (Chronic) Medical History Arthritis Post traumatic stress disorder Anxiety Surgical History S/P right knee arthroscopy H/O arthroscopy of shoulder right History of colonoscopy History of appendectomy [place] teeth removed Hx laparoscopic cholecystectomy (01/12/24) Diagnostic Laparoscopy, Laparoscopic Cholecystectomy(Not Applicable) - Donavan Callahan, DO Family History Other Family history non-contributory No family history of adverse response to anesthesia Social History Smoking Status: Never smoker Second Hand Exposure: No; Do You Dip or Chew Tobacco: No; Hx Alcohol Use: Yes Hx Substance Use: No Preferred Language: Frisian Communication Ability: Effective Bacteriologist Fishery Required: No Beliefs That Will Affect Care: None Current Living Situation: Alone Current Living Situation Comment: Girlfriend. Feels Safe at Home: Yes Assistive Devices: None Review of Systems Review of Systems: All systems reviewed & are unremarkable except as noted in HPI & below Physical Exam Physical Exam: General: no distress, overweight Head: normocephalic, atraumatic Eyes: PERRL, EOM's intact, conjunctiva non-injected, anicteric ENT: normal inspection external ears, nose, mucous membranes moist Neck: supple, trachea midline Lungs: no respiratory distress at rest, faint wheezing, no rhonchi/rales CV: RRR, no murmur, no pretibial edema Abd: normal BS, soft, non-tender Back: no spinous process tenderness to palpation, +tenderness to palpation right lateral back and CVA region Ext: no cyanosis, no calf tenderness; LUE: left shoulder with healed surgical incisions without erythema or discharge, shoulder non-tender to palpation Neuro: A&O x 3, no focal deficits noted, normal affect Skin: warm, dry, no rashes noted Results & Data Results & Data Vital Signs (Past 12 Hours) Vital Signs Temp Pulse Pulse Resp BP BP Pulse Ox 10/17/25 15:54 93 H 10/17/25 15:30 95 H 22 147/94 H 97 10/17/25 15:06 84 25 H 161/106 H 99 10/17/25 14:30 81 22 155/95 H 96 10/17/25 14:00 82 25 H 159/104 H 96 10/17/25 13:30 84 17 144/92 H 97 10/17/25 13:00 85 21 147/104 H 98 10/17/25 12:47 10/17/25 12:47 81 21 181/93 H 98 10/17/25 12:30 80 25 H 181/93 H 99 10/17/25 12:00 88 27 H 175/106 H 97 10/17/25 11:52 84 10/17/25 11:42 36.5 C 92 H 20 142/101 H 100 O2 Del Method 10/17/25 15:54 10/17/25 15:30 Room Air 10/17/25 15:06 Room Air 10/17/25 14:30 Room Air 10/17/25 14:00 Room Air 10/17/25 13:30 10/17/25 13:00 Room Air 10/17/25 12:47 Room Air 10/17/25 12:47 10/17/25 12:30 Room Air 10/17/25 12:00 Room Air 10/17/25 11:52 10/17/25 11:42 Room Air Laboratory Results Short CBC 10/17/25 Range/Units 12:07 WBC 10.88 H (4.8-10.8) K/ul Hgb 14.9 (14.0-18.0) g/dL Hct 44.3 (42.0-52.0) % Plt Count 232 (130-400) K/uL BMP 10/17/25 12:07 Sodium 139 Potassium 3.4 L Chloride 102 Carbon Dioxide 28 BUN 14 Creatinine 1.10 Glucose 100 H Calcium 9.0 Liver Function 10/17/25 Range/Units 12:07 Total Bilirubin 0.5 (0.2-1.0) mg/dl AST 16 (13-39) U/L ALT 41 (7-52) U/L Alkaline Phosphatase 60 (34-104) U/L Albumin 4.2 (3.4-5.0) gm/dl Diagnostic Findings Chest CTA 10/17/25 12:23 CT ANGIOGRAM OF THE CHEST CLINICAL HISTORY: Chest pain. Evaluate for pulmonary embolus. COMPARISON STUDY: Chest CT January 23, 2024. Chest radiograph performed earlier today. TECHNIQUE: Following the IV administration of 119 cc of Optiray 320, CT angiogram of the chest was performed from the upper abdomen to the thoracic inlet utilizing the pulmonary embolus protocol. Images are reviewed in the axial, sagittal, and coronal planes. 3-D MIPS images are created and assessed. IV contrast was administered without complication. A dose lowering technique was utilized adhering to the principles of ALARA. CT DOSE: 869.45 mGy.cm FINDINGS: Thyroid: Unremarkable. Thoracic aorta: The caliber of the thoracic aorta is normal. No dissection is seen. Pulmonary vasculature: The caliber of the pulmonary trunk is normal. There are no filling defects identified in main, lobar, or segmental pulmonary branches to suggest pulmonary embolus. Heart: The size of the heart is normal. There is no pericardial effusion. Lungs and pleural spaces: There is no consolidation to suggest pneumonia. There is no pneumothorax or pleural effusion. A 4 mm right middle lobe pulmonary nodule on image 67 of 217 is unchanged since initial chest CT of October 03, 2020. This is benign given stability. Mediastinum: There is no mediastinal lymphadenopathy. Sruthi: There is no hilar adenopathy. Axillae: There is no axillary lymphadenopathy. Upper abdomen: A small 1 cm enhancing segment 2 hepatic lesion on image 38 of 217. Remains unchanged. This is likely benign. There is probable hepatic steatosis. Skeletal structures: No lytic or blastic bony lesions are seen. IMPRESSION: 1. No pulmonary emboli identified. 2. No acute intrathoracic findings. ACT 112: Negative or not required by law. Electronically signed by: Kaden Cantu M.D. 10/17/2025 12:49 PM Chest X-Ray 10/17/25 12:23 XR chest 1V portable CLINICAL HISTORY: Chest pain, nonspecific COMPARISON STUDY: 10/02/2025 FINDINGS: Stable mild cardiomegaly without pulmonary vascular congestion. No consolidation or pleural effusion seen. No pneumothorax. IMPRESSION: No acute findings. ACT 112: Negative or not required by law. Electronically signed by: Anival Castillo M.D. 10/17/2025 12:34 PM Supervising Physician Co-Signing Physician Notes Attending addendum: The patient was seen and examined in emergency room He has been complaining of shortness of breath with exertion for the last 2 weeks Also complains to have pain at the upper back and the pain is worse with breathing The shortness of breath is associated with wheezing but no definite chest pain or palpitation Denies any swelling of the legs, any abdominal pain nausea or vomiting On examination Looks tired but no apparent distress Afebrile and hemodynamically stable with blood pressure at 147/94 Chestminimal wheezing anteriorly HeartS1-S2, regular Abdomenbenign Extremitiesno edema His admission labs, EKG and imaging studies reviewed No evidence of pneumonia and/or pulmonary embolism on imaging studies No significant EKG changes and troponin has been negative Minimal wheezing on examinationWill need to have PFTs as an outpatient Will get CT of the abdomen pelvis to rule out any intra-abdominal pathology Will get a stress echo tomorrow Agree with assessment plan as outlined above by Tamar Ventura PA-C and take the full responsibility of care in the hospital Total time taken to review the chart, results of tests, medications, examining the patient and planning about management was [address] Wendy King
[2025-10-17 17:54] LABS: Magnesium 2.1 mg/dl (1.7-2.4)
--- NOTE | 2025-10-17 18:45 | Electrocardiogram Report ---
Test Reason : Blood Pressure : */* mmHG Vent. Rate : 80 BPM Atrial Rate : 80 BPM P-R Int : 144 ms QRS Dur : 96 ms QT Int : 362 ms P-R-T Axes : 41 -5 42 degrees QTcB Int : 417 ms Normal sinus rhythm Minimal voltage criteria for LVH, may be normal variant ( R in aVL ) Borderline ECG When compared with ECG of 02-Oct-2025 20:53, No significant change was found Confirmed by Pepe Cardozo ([id number]) on 10/17/2025 6:45:38 PM Referred By: Confirmed By: Pepe Cardozo
--- NOTE | 2025-10-17 19:03 | CT Scan Report ---
Clinical History: Right flank pain Technique: Axial computed tomography images were obtained of the abdomen and pelvis without intravenous contrast. Comparison is made to the prior CT dated 01/19/2025 Findings: The liver is overall of normal size, attenuation, and contour with no sign of cirrhosis or significant fatty infiltration. There is a 9 mm hyperdense lesion in the left hepatic lobe, new or more apparent. The gallbladder has been removed. No bile duct dilatation is noted. The spleen is of normal size. No focal splenic lesion is evident. The pancreas appears normal with no sign of acute or chronic pancreatitis and no mass lesion noted. The pancreatic duct is of normal caliber. The adrenal glands appear unremarkable. There is excreted contrast within the renal collecting systems bilaterally. There is no hydronephrosis or perinephric stranding. No definite renal mass lesion is identified. There is a 1.3 cm right renal cyst The aorta is of normal caliber. No abdominal adenopathy is seen. The stomach appears normal. There is no sign of small bowel obstruction. There is mild diverticulosis without evidence of diverticulosis. The appendix has been removed. No free intraperitoneal fluid or air is identified. There is excreted contrast within the urinary bladder. No obvious bladder mass lesion is evident. The iliac arteries are of normal caliber. No pelvic adenopathy is noted. There is mild dependent subsegmental atelectasis in both lower lobes. Mild thoracolumbar degenerative disc disease is seen. No fracture is identified. No focal osseous lesion is seen Impression: 1. Small right renal cyst 2. New or more apparent hyperdense liver lesion. This could be due to calcification, though a mass is also possible. A follow-up liver protocol abdominal MRI with and without contrast could be considered 3. Diverticulosis without evidence of diverticulitis Electronically signed by Sreekanth Almeida 10-17-2025 7:03 PM
--- NOTE | 2025-10-17 19:05 | CT Scan Report ---
Clinical history: Pain Technique: Axial computed tomography images were obtained of the lumbar spine without intravenous contrast. Sagittal and coronal reconstructions were obtained Findings: There is a mild T12 compression fracture, likely old. No other definite fracture is identified. No listhesis is seen. No focal osseous lesion is evident. There is no definite sign of osteomyelitis. There is multilevel Schmorl's node formation At L1-2, no disc herniation is identified. There is no spinal stenosis. The neural foramen are patent At L2-3, no disc herniation is identified. There is no spinal stenosis. The neural foramen are patent At L3-4, no disc herniation is identified. There is no spinal stenosis. The neural foramen are patent At L4-5, no disc herniation is identified. There is no spinal stenosis. The neural foramen are patent At L5-S1, no disc herniation is identified. There is no spinal stenosis. The neural foramen are patent The visualized soft tissues of the abdomen and pelvis appear unremarkable Impression: 1. Mild T12 compression fracture, likely old 2. Otherwise unremarkable CT of the lumbar spine Electronically signed by Sreekanth Almeida 10-17-2025 7:05 PM
[2025-10-17] MEDS: POTASSIUM CHLORIDE CRTAB 20 MEQ TABCR PO ONE (19:24)
[2025-10-17] MEDS: ACETAMINOPHEN 500 MG TAB PO STA (19:52)
[2025-10-17] MEDS: LIDOCAINE 5% 1 PATCH TD STA (19:52)
[2025-10-17 20:07] LABS: Appearance Urine Clear (Clear); Bacteria Urine Automated None Seen (None Seen); Cast Urine Automated 0-2 /lpf (0-2); Epithelial Cell Urine Auto 0-2 /hpf (0-2); Glucose Urine UA Negative (Negative); RBC Urine Automated 0-2 /hpf (0-2); WBC Urine Automated 0-5 /hpf (0-5)
[2025-10-17] MEDS ORDERED: ALBUT/IPRATROP 3MG/0.5MG NEB 3 ML VIAL NEB PRN (20:25)
[2025-10-17] MEDS ORDERED: ALBUTEROL HFA 8 GM INHALER INH PRN (20:26)
[2025-10-17] MEDS ORDERED: POLYETHYLENE (MIRALAX) 17 GM PACK PO PRN (20:29)
[2025-10-17] MEDS ORDERED: KETOROLAC TROMETHAMINE 15 MG/ML VIAL IV PRN (20:29)
[2025-10-17] MEDS ORDERED: ONDANSETRON INJ 2 MG/ML 2 ML VIAL IV PRN (20:29)
[2025-10-17] MEDS: ALBUT/IPRATROP 3MG/0.5MG NEB 3 ML VIAL NEB SCH (20:46)
[2025-10-17] MEDS: FAMOTIDINE 20 MG TAB PO SCH (21:46)
[2025-10-17] MEDS: PRAZOSIN HCL 1 MG CAP PO SCH (21:46)
[2025-10-17] MEDS: ENOXAPARIN INJ 40 MG/0.4 ML SYR SQ SCH (21:46)
[2025-10-17] MEDS: diphenhydrAMINE Capsule 25 MG CAP PO PRN (22:52)
[2025-10-18] MEDS: GADOXETATE DISODIUM IV ONE (01:10)
[2025-10-18] MEDS: NSS + 20MEQ KCL 20 MEQ/1,000 ML BAG IV ONE (01:31)
--- NOTE | 2025-10-18 02:45 | Communication Note ---
Date of Service: October 18, 2025 Patient with NSVT episode. Patient asymptomatic. Potassium replacement for hypokalemia ongoing. AP NSVT Initiate beta-nadege to suppress ectopy
--- NOTE | 2025-10-18 03:12 | Magnetic Resonance Report ---
EXAM: MR abdomen wo/w con CLINICAL HISTORY: assess liver ?mass TECHNIQUE: Multiplanar/multisequence MRI of the abdomen and pelvis was performed with the use of gadolinium. 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 FINDINGS: The liver is of normal signal intensity. No evidence of intrahepatic biliary ductal dilatation. Small 8 mm simple cyst in liver. The gallbladder is not seen. Limited evaluation of the bowel secondary to peristalsis, however, demonstrates no definitive abnormality. The adrenal glands demonstrate no gross mass. The pancreas is unremarkable. The right kidney shows a well defined thin walled exophytic cortical cyst measuring 17mm close to upper polar region. Left kidney is unremarkable. No evidence of ascites. There is no ascites in the pelvis. No pelvic mass or adenopathy is present. No abnormal enhancement/enhancing mass lesion seen in solid organs. IMPRESSION: 1. Right renal simple cortical cyst. 2. Small 8 mm simple cyst in liver-corresponding to the previous CT images. Electronically signed by Garth Isidro 10-18-2025 03:12 AM
[2025-10-18] MEDS: METOPROLOL TARTRATE 25 MG TAB PO SCH (04:00)
[2025-10-18] MEDS: ACETAMINOPHEN 500 MG TAB PO SCH (04:01)
[2025-10-18 07:57] LABS: Hematocrit (blood only) 40.7 % (42.0-52.0); Hemoglobin 13.9 g/dL (14.0-18.0); Immature Granulocytes # (auto) 0.08 K/uL (0.01-0.20); Immature Granulocytes % (auto) 0.7 %; Mean Corpuscular Hemoglobin 28.6 pg (25.0-34.0); Mean Corpuscular Volume 83.7 fL (80.0-100.0); Platelet Count 215 K/uL (130-400); RDW Standard Deviation 40.7 fL (36.4-46.3); Red Blood Count 4.86 M/uL (4.70-6.10); White Blood Count 11.37 K/ul (4.8-10.8)
[2025-10-18 08:16] LABS: Anion Gap 9.0 (3-11); Blood Urea Nitrogen 16.0 mg/dl (6-23); Calcium 8.5 mg/dl (8.6-10.3); Carbon Dioxide 23.0 mmol/L (21-32); Chloride 104.0 mmol/L (98-107); Creatinine Clr Calc Pharmacy 113.7 ml/min; Glucose 139.0 mg/dl (70-99(Fasting)); Magnesium 2.1 mg/dl (1.7-2.4); Potassium 3.9 mmol/L (3.5-5.1); Sodium 136.0 mmol/L (136-145)
--- NOTE | 2025-10-18 08:58 | XCELERA ---
[id number]
[2025-10-18] MEDS ORDERED: MoRPHine SULFATE 2 MG/ML CARP IV PRN (09:03)
--- NOTE | 2025-10-18 09:26 | Hospitalist Progress Note ---
Date of Service October 18, 2025 Assessment & Plan (1) Dyspnea: Plan: 49-year-old male with PMH anxiety, PTSD presented to ER with c/o ongoing SOB, cough, wheezing, chills, sweats x 2 weeks. Outpatient treated with prednisone, Levaquin, albuterol. reports some improvement with prednisone but SOB worsened after completed course. #Reactive airway Possible bronchitis vs asthma Patient reports he had childhood asthma. Cannot rule out asthma at this time con sidering reports of chest tightness, wheezing and improvement with steroid In ER afebrile, P: 92, R: 20, BP 142/101, 100% on room air. WBC: 10.8, troponin negative x 2. respiratory biofire panel is negative CTA chest: No pulmonary emboli identified. No acute intrathoracic findings. ER reported patient was dyspneic with exertion throughout ER with no noted hypoxia. ER physician reported patient had slight rash to left shoulder after CTA and was given methylprednisolone 60 mg, famotidine 20 mg IV. (Added rash on allergy list to possible IVP dye) Blood cultures still in lab Procal today is not elevated TTE noted normal LVSF EF 55-60%, Grade I DD, mild pulm valvular regurgitation Continue steroid and nebs for now Hold off antibiotics for now and monitor Supportive care Will need eval for asthma outpatient #Right flank pain #Right back pain UA not suggestive of UTI CT Lumbar noted mild T12 compression fracture, likely old. Otherwise unremarkable CT abd/Pelvis noted small right renal cyst. New or more apparent hyperdense liver lesion. MRI Abdomen right renal simple cortical cyst and small 8mm simple cyst in liver Pain likely musculoskeletal Reports oxycodone does not let him sleep Continue Scheduled Tylenol, Lidocaine patch, Toradol Oxycodone prn changed to tramadol #Elevated Blood pressure reading BP significantly elevated overnight but normal this AM May be related to pain. Monitor blood pressure. Started on metoprolol overnight for NSVT on tele. Will monitor #Anxiety #PTSD Continue home duloxetine, prazosin DVT Prophylaxis- Lovenox SQ Code status - Full I spent a total of 50 minutes coordinating, documenting and providing care for this patient excluding time spent in performance of separately billed services Admission and Anticipated Discharge Date Admission Date: October 17, 2025 Subjective Patient seen and examined Still reports chest tightness, occasional wheeze, mild cough Reports right lower back pain Physical Exam Constitutional: + well hydrated; no acute distress Eyes: PERRL, conjunctivae normal, anicteric sclerae ENMT: external ear and nose normal, oropharynx normal Respiratory: normal respiratory effort, lungs clear to auscultation Cardiovascular: Rate/Rhythm: regular rate and regular rhythm Gastrointestinal (Abdomen): normal bowel sounds, soft, nontender, no hepatosplenomegaly Musculoskeletal: Tenderness over right lower back muscles Neurologic: PERRL, EOMI, accommodation nl, no face palsy, no dysarthria Psychiatric: A+Ox3, euthymic affect Results & Data Results & Data Vital Signs (Past 12 Hours) Vital Signs Temp Pulse Pulse Resp BP BP Pulse Ox 10/18/25 07:43 72 10/18/25 07:30 36.5 C 96 H 18 118/71 98 10/18/25 07:09 98 H 16 98 10/18/25 03:53 36.5 C 86 20 146/79 H 96 10/18/25 02:47 36.6 C 90 18 216/105 H 210/110 H 97 O2 Del Method 10/18/25 07:43 10/18/25 07:30 Room Air 10/18/25 07:09 Room Air 10/18/25 03:53 Room Air 10/18/25 02:47 Room Air Laboratory Results Abnormal lab results 10/17/25 10/18/25 Range/Units 19:54 07:34 WBC 11.37 H (4.8-10.8) K/ul Hgb 13.9 L (14.0-18.0) g/dL Hct 40.7 L (42.0-52.0) % Neut # (Auto) 8.09 H (1.40-6.50) K/uL [place] # (Auto) 0.89 H (0.11-0.59) K/uL Glucose 139 H (70-99(Fasting)) mg/dl Calcium 8.5 L (8.6-10.3) mg/dl Urine Ketones Trace H (Negative) Urine Blood Trace H (Negative)
[2025-10-18] MEDS: LIDOCAINE 5% 1 PATCH TD SCH (09:48)
[2025-10-18] MEDS: LORATADINE 10 MG TAB PO SCH (10:33)
[2025-10-18] MEDS ORDERED: ALBUT/IPRATROP 3MG/0.5MG NEB 3 ML VIAL NEB PRN (11:02)
[2025-10-18] MEDS: MoRPHine SULFATE 2 MG/ML CARP IV PRN (12:27)
--- NOTE | 2025-10-18 17:28 | Electrocardiogram Report ---
Test Reason : Blood Pressure : */* mmHG Vent. Rate : 76 BPM Atrial Rate : 76 BPM P-R Int : 142 ms QRS Dur : 92 ms QT Int : 388 ms P-R-T Axes : 36 -8 31 degrees QTcB Int : 436 ms Normal sinus rhythm Minimal voltage criteria for LVH, may be normal variant ( R in aVL ) Borderline ECG When compared with ECG of 17-Oct-2025 11:59, No significant change was found Confirmed by Pepe Cardozo ([id number]) on 10/18/2025 5:28:23 PM Referred By: TIMO BALLESTEROS Confirmed By: Pepe Cardozo
[2025-10-18] MEDS: DICLOFENAC SODIUM 75 MG TABCR PO SCH (20:14)
[2025-10-18] MEDS: REMOVE LIDODERM PATCH SCH (20:16)
[2025-10-18] MEDS ORDERED: REMOVE LIDODERM PATCH SCH (21:00)
[2025-10-19 02:56] VITALS: O2SAT 96
[2025-10-19 06:33] LABS: Hematocrit (blood only) 41.4 % (42.0-52.0); Hemoglobin 14.2 g/dL (14.0-18.0); Mean Corpuscular Hemoglobin 29.1 pg (25.0-34.0); Mean Corpuscular Volume 84.8 fL (80.0-100.0); Platelet Count 232 K/uL (130-400); RDW Standard Deviation 41.1 fL (36.4-46.3); Red Blood Count 4.88 M/uL (4.70-6.10); White Blood Count 12.24 K/ul (4.8-10.8)
[2025-10-19 06:56] LABS: Anion Gap 7.0 (3-11); Blood Urea Nitrogen 24.0 mg/dl (6-23); Calcium 9.0 mg/dl (8.6-10.3); Carbon Dioxide 24.0 mmol/L (21-32); Chloride 104.0 mmol/L (98-107); Creatinine Clr Calc Pharmacy 106.7 ml/min; Glucose 194.0 mg/dl (70-99(Fasting)); Magnesium 2.4 mg/dl (1.7-2.4); Potassium 4.3 mmol/L (3.5-5.1); Sodium 135.0 mmol/L (136-145)
[2025-10-19 08:40] VITALS: BP 146/82; PULSE 70; RESP 20; TEMP 98.1
--- NOTE | 2025-10-19 09:51 | Discharge Summary ---
Date of Service October 19, 2025 Admission HPI Per Admitting Provider Patient is 49-year-old male with PMH anxiety, PTSD presented to ER with c/o ongoing SOB. Per inpatient chart review s/p left shoulder arthroscopy on 09/24/[address] Carty. Patient reports approximately one week later he started with nonproductive cough, SOB that is worse with exertion, wheezing, lightheadedness, sweats and chills, right low back pain. Per chart review he was seen at [facility] ER on 10/02/25 for shortness of breath, cough, tactile fever, lightheadedness. At that time WBC: 12, Hgb: 15, negative D-dimer and troponin, negative COVID 19, RSV and influenza. CXR with peribronchial thickening, Per ER note was noted to have wheezing on exam and was discharged on [place], prednisone. Per chart review seen at PCPs office 10/04/2025 for ER follow-up and had continued symptoms and was started on Levaquin x 10 days. Seen at PCPs office today for continued shortness of breath and wheezing, tactile fever. Today Outpatient CXR impression: No pleural effusion or pneumothorax. He was referred to ER for concern possible PE. Patient reports his shoulder is doing well and not having pain. Patient reports felt less short of breath while he was taking prednisone. Reports once finished prednisone he feels more short of breath. Has continued cough and denies hemoptysis. Denies chest pain. He reports ongoing intermittent chills and sweats and lightheaded with ambulating. Reports continues with right low back pain and right flank pain that is nonradiating and describes it as stabbing and constant pain. Denies any improvement with back pain throughout course treatment. Denies hemoptysis. Reports works for a [employer]. Denies any known exposures. Denies any known injury or history back pain. Has not been taking his temperature at home. Denies N/V/D/C, COLIN, syncope, vision changes, neck pain, orthopnea, palpitations, sore throat, rhinorrhea, abdominal pain, paresthesias, extremity weakness, extremity edema, rashes, dysuria, hematuria, urinary frequency, urinary retention. Discussed patient with ER provider reports vitals stable and no hypoxia. Reports patient was dyspneic with exertion throughout ER with no noted hypoxia. ER physician reports patient had slight rash to left shoulder after CTA and was given methylprednisolone 60 mg, famotidine 20 mg IV. Patient was also given albuterol neb to assess if would help with dyspnea/wheezing Admission Exam Per Admitting Provider General: no distress, overweight Head: normocephalic, atraumatic Eyes: PERRL, EOM's intact, conjunctiva non-injected, anicteric ENT: normal inspection external ears, nose, mucous membranes moist Neck: supple, trachea midline Lungs: no respiratory distress at rest, faint wheezing, no rhonchi/rales CV: RRR, no murmur, no pretibial edema Abd: normal BS, soft, non-tender Back: no spinous process tenderness to palpation, +tenderness to palpation right lateral back and CVA region Ext: no cyanosis, no calf tenderness; LUE: left shoulder with healed surgical incisions without erythema or discharge, shoulder non-tender to palpation Neuro: A&O x 3, no focal deficits noted, normal affect Skin: warm, dry, no rashes noted Principal Diagnosis Bronchitis Discharge Exam Constitutional + well hydrated; no acute distress Eyes PERRL, conjunctivae normal, anicteric sclerae ENMT external ear and nose normal, oropharynx normal Respiratory normal respiratory effort, lungs clear to auscultation Cardiovascular Rate/Rhythm: regular rate and regular rhythm Gastrointestinal (Abdomen) normal bowel sounds, soft, nontender, no hepatosplenomegaly Neurologic PERRL, EOMI, accommodation nl, no face palsy, no dysarthria Psychiatric A+Ox3, euthymic affect Discharge Data Allergies Allergy/AdvReac Type Severity Reaction Status Date / Time Penicillins Allergy Intermediate Hives Verified 10/02/25 23:21 IVP dye AdvReac Rash Uncoded 10/17/25 17:33 Consultations 10/17/25 16:22 ED Decision to Admit Stat Ordered Studies 10/17/25 12:23 CT angio chest PE protocol Stat 10/17/25 17:45 CT Abd and Pelvis [CT abd pelvis wo con] Urgent CT lumbar spine wo con Urgent 10/18/25 09:00 MRI Abdomen [MR abdomen wo/w con] Routine Hospital Course (1) Dyspnea: 49-year-old male with PMH anxiety, PTSD presented to ER with c/o ongoing SOB, cough, wheezing, chills, sweats x 2 weeks. Outpatient treated with prednisone, Levaquin, albuterol. reports some improvement with prednisone but SOB worsened after completed course. #Reactive airway Possible bronchitis vs asthma Patient reported he had childhood asthma. Cannot rule out asthma at this time considering reports of chest tightness, wheezing and improvement with steroid In ER afebrile, P: 92, R: 20, BP 142/101, 100% on room air. WBC: 10.8, troponin negative x 2. respiratory biofire panel is negative CTA chest: No pulmonary emboli identified. No acute intrathoracic findings. ER reported patient was dyspneic with exertion throughout ER with no noted hypoxia. ER physician reported patient had slight rash to left shoulder after CTA and was given methylprednisolone 60 mg, famotidine 20 mg IV. (Added rash on allergy list to possible IVP dye) Blood cultures negative Procal not elevated TTE noted normal LVSF EF 55-60%, Grade I DD, mild pulm valvular regurgitation Was managed with nebs and steroid Reports feeling better today Discharged on prednisone taper. If symptoms does not resolve or worsens, PCP can consider pulm referral #Right flank pain #Right back pain UA not suggestive of UTI CT Lumbar noted mild T12 compression fracture, likely old. Otherwise unremarkable CT abd/Pelvis noted small right renal cyst. New or more apparent hyperdense liver lesion. 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 #Elevated Blood pressure reading BP significantly elevated on first day of admission May be related to pain and anxiety as BP has significantly improved and mostly normal in the past 24h PCP to monitor on follow up #Anxiety #PTSD Continue home duloxetine, prazosin Total Time Total Time Spent Total Time Spent (In Minutes): 45 Total Time Includes: Examination of the Patient, Discharge Planning and Medication Reconciliation Discharge Plan Discharge Items Patient Disposition: Home - Self-Care Reason For Visit: DYSPNEA Discharge Diagnosis: Bronchitis Condition on Discharge: Good Activity: Resume your previous activity Non-emergency contact: Primary Care Provider Call non-emergency contact if: you have any medication questions Follow-up/Referrals: Mane Stiles MD [Primary Care Provider] - (Date & Time 10/23/2025 1:40 PM Provider: Anival Luther MD [facility], [facility] ) Diet: Regular Addtl Attending Provider Instructions: Mr Hartmann You were hospitalized and managed for the above listed diagnosis You are being discharged on a prednisone taper. You are also being discharged on loratadine and famotidine. Please ensure follow up with your Primary Doctor. If symptoms do not resolve or worsens, your Primary Doctor can arrange for Pulmonology referral. It was a pleasure taking care of you Pending Studies at Discharge: No Stand-Alone Forms: My [facility], Smoking Cessation Medications and DC Order Prescriptions: New famotidine 20 mg Tablet 20 mg PO BID 14 Days Qty: 28 0RF loratadine [Wal-itin] 10 mg Tablet 10 mg PO QAM 5 Days Qty: 5 0RF prednisone 20 mg tablet See Rx Instructions .ROUTE .COMPLEX Qty: 12 0RF Rx Instructions: Take 40mg daily for next 4 days and then 20mg for another 4 days and then stop Continued prazosin 2 mg Capsule 4 mg PO HS duloxetine 20 mg Capsule,Delayed Release(Dr/Ec) 20 mg PO QAM albuterol sulfate 90 mcg/actuation Hfa Aerosol Inhaler 2 puff INHALATION Q6H PRN (Reason: Shortness Of Breath Or Wheezing) diclofenac sodium 75 mg Tablet,Delayed Release (Dr/Ec) 75 mg PO BID PRN (Reason: Pain) Discharge Orders: Discharge Order (Routine); Ordered 10/19/25 Ordered By: Simin Gee Admission Data Admit Date/Time: 10/18/25 14:29 Attending Provider: Simin Gee I. Admit Provider: Nadine King Primary Care Provider: Mane Stiles Other Providers: Nadine King Other Interventions: Discharge Summary Assessment (RN) Last Done: 10/19/25 10:00
== END 2025-10-19 10:10 | disposition home or self-care (01) | DRG 202 ==
LOC: 2N 11:40 → ED 11:40 → SUATTDRO 17:16 → 2N 20:10